=== PATIENT | female | born 1995 | race Two or more races ===

== ENCOUNTER → 2020-08-25 09:25 | Outpatient (BNVA) | payer OTHER, SELFPAY | PROVIDERS: Visit Provider Advanced Practice Midwife | DX: N92.6 Irregular menstruation, unspecified (principal); E66.9 Obesity, unspecified | CPT/HCPCS: 81025; 99212 ==

== ENCOUNTER 2020-09-03 10:31 | Outpatient (REF) | payer OTHER, SELFPAY ==
--- NOTE | ~2020-09-03 | US_ITS ---
EXAMINATION: US OBSTETRICAL ULTRASOUND, LESS THAN 14 WEEKS US OBSTETRICAL ULTRASOUND, TRANSVAGINAL CLINICAL INFORMATION: Unknown LMP. Irregular menses. First trimester dating. COMPARISON: None. LMP: Unknown. Gestational age by maternal dates is 9 weeks and 2 days. Estimated date of delivery by maternal dates is 04/06/2021. TECHNIQUE: Routine tristan-scale imaging of the abdomen with attention to was performed. FINDINGS: There is an intrauterine gestational sac. No definite visualization of yolk sac, pole or cardiac activity. MATERNAL ADNEXA: The right maternal ovary measures 2.9 x 2.3 x 2.7 cm. Unremarkable. The left maternal ovary measures 2.2 x 0.9 x 2.3 cm. Unremarkable. There is no significant maternal adnexal mass. No maternal pelvic ascites. US/US OB <= 14 weeks fetus IMPRESSION: Intrauterine gestational sac visualized. However, no pole, heart activity or yolk sac seen. Both ovaries are unremarkable. Recommend continued followup with serial hCG and ultrasound in 1 week.
--- NOTE | ~2020-09-03 | US_ITS ---
EXAMINATION: US OBSTETRICAL ULTRASOUND, LESS THAN 14 WEEKS US OBSTETRICAL ULTRASOUND, TRANSVAGINAL CLINICAL INFORMATION: Unknown LMP. Irregular menses. First trimester dating. COMPARISON: None. LMP: Unknown. Gestational age by maternal dates is 9 weeks and 2 days. Estimated date of delivery by maternal dates is 04/06/2021. TECHNIQUE: Routine tristan-scale imaging of the abdomen with attention to was performed. FINDINGS: There is an intrauterine gestational sac. No definite visualization of yolk sac, pole or cardiac activity. MATERNAL ADNEXA: The right maternal ovary measures 2.9 x 2.3 x 2.7 cm. Unremarkable. The left maternal ovary measures 2.2 x 0.9 x 2.3 cm. Unremarkable. There is no significant maternal adnexal mass. No maternal pelvic ascites. US/US OB transvaginal IMPRESSION: Intrauterine gestational sac visualized. However, no pole, heart activity or yolk sac seen. Both ovaries are unremarkable. Recommend continued followup with serial hCG and ultrasound in 1 week.
== END 2020-09-03 10:32 | disposition home or self-care (01) ==
LOC: HO.US 10:31
PROVIDERS: Visit Provider Advanced Practice Midwife
DX: Z34.91 Encounter for supervision of normal pregnancy, unspecified, first trimester (principal)
CPT/HCPCS: 76801; 76817

== ENCOUNTER 2020-09-08 09:54 | Outpatient (REF) | payer OTHER, SELFPAY | END 2020-09-08 09:55 | disposition home or self-care (01) | LOC: HO.LAB 09:54 | PROVIDERS: Visit Provider Advanced Practice Midwife | DX: O20.0 Threatened abortion (principal) | CPT/HCPCS: 36415; 84702 ==

== ENCOUNTER 2020-09-10 10:29 | Outpatient (REF) | payer OTHER, SELFPAY ==
--- NOTE | ~2020-09-10 | US_ITS ---
EXAMINATION: OBSTETRICAL ULTRASOUND, FIRST TRIMESTER HISTORY: The 25-year-old at the 6.6 weeks Threatened AB LMP: 06/30/2020 COMPARISON: 09/03/2020 TECHNIQUE: Real time transabdominal imaging with color and M-mode Doppler. Transvaginal ultrasound was performed using an endovaginal probe. FINDINGS: A single intrauterine gestational sac is seen. There is no identifiable yolk sac or embryonic pole. The mean sac diameter corresponds to 7.4 weeks. No heart rate motion seen. Both maternal ovaries are seen and appear normal. No free fluid in the cul-de-sac. GESTATIONAL AGE: 1. GA from LMP: 6.6 wks 2. GA from AUA: 7.4 wks ESTIMATED DATE OF DELIVERY: 1. JOAQUÍN from LMP: 04/30/2021 2. JOAQUÍN from AUA: 04/25/2021 US/US OB <= 14 weeks fetus IMPRESSION: 1. An empty intrauterine gestational sac with sac diameter corresponds to 7.4 weeks of gestation. 2. No embryonic pole or yolk sac identified, consistent with missed AB. 3. Normal adnexa and no free fluid. Discussion: I reviewed the findings with the patient and informed her of the missed AB. I also discussed the various causes for first trimester miscarriages. Approximately 20% of all human conceptions are lost in the first trimester. This one event is not the alter her ability to conceive in carry the to term. I reviewed various options and management including expectant risks and benefits of each options. She is to schedule a follow-up the which are office. Thank you very much for this referral. Total time 30 minutes. The time spent was devoted to counseling the patient about the disease and diagnosis, coordinating care including reviewing her records, pertinent lab data and studies, as well as discussing diagnostic evaluation and workup, plan therapeutic interventions and future disposition of care. This includes any additional research needed to obtain further information in formulating the plan of care of this patient. This note was generated with a voice recognition program. Please excuse any errors which may have been overlooked during my review of this note. Sometimes these errors may affect the content or meaning of a given sentence.
[2020-09-10 15:09] LABS: Hematocrit 34.2 % (37-47); Hemoglobin 10.9 g/dl (12.0-16.0); Mean Corpuscular HGB Conc 31.9 g/dl (31.0-35.0); Mean Corpuscular Hemoglobin 27.7 pg (27.0-33.0); Mean Platelet Volume 9.8 fL (9.4-12.3); Platelet Count 301 X10*3/uL (160-400); Red Blood Count 3.93 X10*6/uL (4.20-5.50); Red Cell Distribution Width 14.6 % (11.0-16.0); White Blood Count 8.6 X10*3/uL (4.8-10.8)
== END 2020-09-10 10:30 | disposition home or self-care (01) ==
LOC: HO.US 10:29
PROVIDERS: Visit Provider Advanced Practice Midwife
DX: O20.0 Threatened abortion (principal)
CPT/HCPCS: 36415; 76801; 85027; 86850; 86900; 86901; 99212

== ENCOUNTER 2020-09-13 12:49 | Outpatient (REF) | payer OTHER, SELFPAY ==
[2020-09-13 15:02] LABS: Hematocrit 34.4 % (37-47); Hemoglobin 10.9 g/dl (12.0-16.0); Mean Corpuscular HGB Conc 31.7 g/dl (31.0-35.0); Mean Corpuscular Hemoglobin 27.4 pg (27.0-33.0); Mean Corpuscular Volume 86.4 fL (80-98); Mean Platelet Volume 9.6 fL (9.4-12.3); Platelet Count 295 X10*3/uL (160-400); Red Blood Count 3.98 X10*6/uL (4.20-5.50); Red Cell Distribution Width 14.6 % (11.0-16.0); White Blood Count 9.4 X10*3/uL (4.8-10.8)
[2020-09-13 16:08] LABS: CT PCR NOT DETECTED (Not Detect.); NG PCR NOT DETECTED (Not Detect.)
== END 2020-09-13 12:50 | disposition home or self-care (01) ==
LOC: HO.LAB 12:49
PROVIDERS: Visit Provider Obstetrics & Gynecology
DX: O02.1 Missed abortion (principal)
CPT/HCPCS: 36415; 84702; 85027; 87491; 87591; 99212

== ENCOUNTER 2020-09-27 13:43 | Outpatient (REF) | payer OTHER, SELFPAY ==
[2020-09-27 16:23] LABS: HCG Quantitative 68 mIU/mL
== END 2020-09-27 13:44 | disposition home or self-care (01) ==
LOC: HO.LAB 13:43
PROVIDERS: Visit Provider Obstetrics & Gynecology
DX: O02.1 Missed abortion (principal)
CPT/HCPCS: 36415; 84702

== ENCOUNTER 2020-10-12 12:22 | Outpatient (REF) | payer OTHER, SELFPAY ==
[2020-10-12 13:14] LABS: HCG Quantitative 7 mIU/mL
== END 2020-10-12 12:23 | disposition home or self-care (01) ==
LOC: HO.LAB 12:22
PROVIDERS: Visit Provider Obstetrics & Gynecology
DX: O02.1 Missed abortion (principal)
CPT/HCPCS: 36415; 84702

== ENCOUNTER → 2020-10-13 10:41 | Outpatient (BNVA) | payer OTHER, SELFPAY | PROVIDERS: Visit Provider Obstetrics & Gynecology ==

== ENCOUNTER 2020-11-11 15:31 | Outpatient (REF) | payer OTHER, SELFPAY ==
[2020-11-11 16:41] LABS: HCG Quantitative < 2 mIU/mL
== END 2020-11-11 15:32 | disposition home or self-care (01) ==
LOC: HO.LAB 15:31
PROVIDERS: Visit Provider Obstetrics & Gynecology
DX: O02.1 Missed abortion (principal)
CPT/HCPCS: 36415; 84702

== ENCOUNTER 2021-09-22 13:21 | Outpatient (REF) | payer OTHER, SELFPAY ==
[2021-09-22 14:10] LABS: Hematocrit 34.1 % (37.0-47.0); Hemoglobin 10.6 g/dl (12.0-16.0); Mean Corpuscular HGB Conc 31.1 g/dl (31.0-35.0); Mean Corpuscular Hemoglobin 25.6 pg (27.0-33.0); Mean Corpuscular Volume 82.4 fL (80.0-98.0); Mean Platelet Volume 9.2 fL (9.4-12.3); Platelet Count 347 X10*3/uL (160-400); Red Blood Count 4.14 X10*6/uL (4.20-5.50); White Blood Count 6.9 X10*3/uL (4.8-10.8)
[2021-09-22 14:40] LABS: HCG Quantitative 35 mIU/mL
[2021-09-23 14:01] LABS: CT PCR NOT DETECTED (Not Detect.); NG PCR NOT DETECTED (Not Detect.)
== END 2021-09-22 13:22 | disposition home or self-care (01) ==
LOC: HO.LAB 13:21
PROVIDERS: Visit Provider Obstetrics & Gynecology
DX: O20.9 Hemorrhage in early pregnancy, unspecified (principal)
CPT/HCPCS: 36415; 81025; 84702; 85027; 87491; 87591; 99212

== ENCOUNTER 2021-09-26 11:39 | Outpatient (REF) | payer OTHER, SELFPAY ==
[2021-09-26 13:01] LABS: HCG Quantitative 21 mIU/mL
== END 2021-09-26 11:40 | disposition home or self-care (01) ==
LOC: HO.LAB 11:39
PROVIDERS: Visit Provider Obstetrics & Gynecology
DX: O03.9 Complete or unspecified spontaneous abortion without complication (principal)
CPT/HCPCS: 36415; 84702; 99212

== ENCOUNTER 2021-10-10 15:50 | Outpatient (REF) | payer OTHER, SELFPAY ==
[2021-10-10 18:03] LABS: HCG Quantitative < 2 mIU/mL
== END 2021-10-10 15:51 | disposition home or self-care (01) ==
LOC: HO.LAB 15:50
PROVIDERS: Visit Provider Obstetrics & Gynecology
DX: O20.9 Hemorrhage in early pregnancy, unspecified (principal)
CPT/HCPCS: 36415; 84702

== ENCOUNTER → 2021-10-17 10:37 | Outpatient (BNVA) | payer OTHER, SELFPAY | PROVIDERS: Visit Provider Obstetrics & Gynecology | DX: Z32.02 Encounter for pregnancy test, result negative (principal); O03.9 Complete or unspecified spontaneous abortion without complication | CPT/HCPCS: 81025; 99212 ==

== ENCOUNTER 2021-12-27 10:52 | Outpatient (REF) | payer OTHER, SELFPAY ==
[2021-12-27 13:27] LABS: Thyroid Stimulating Hormone 1.37 uIU/mL (0.32-4.0)
== END 2021-12-27 10:53 | disposition home or self-care (01) ==
LOC: HO.LAB 10:52
PROVIDERS: Visit Provider Advanced Practice Midwife
DX: Z34.90 Encounter for supervision of normal pregnancy, unspecified, unspecified trimester (principal); Z32.02 Encounter for pregnancy test, result negative
CPT/HCPCS: 36415; 81025; 84443; 99212

== ENCOUNTER 2022-02-14 10:30 | Outpatient (REF) | payer OTHER, SELFPAY ==
[2022-02-15 21:28] LABS: Follicle Stimulating Hormone 6.4 mIU/mL; Prolactin 10.2 ng/mL
[2022-02-15 22:09] LABS: DHEA Sulfate 150 mcg/dL (14-349)
[2022-02-22 19:39] LABS: Testosterone, Free 6.4 pg/mL (0.1-6.4); Testosterone, Total 29 ng/dL (2-45)
== END 2022-02-14 10:31 | disposition home or self-care (01) ==
LOC: HO.LAB 10:30
PROVIDERS: Visit Provider Advanced Practice Midwife
DX: N92.6 Irregular menstruation, unspecified (principal)
CPT/HCPCS: 36415; 82627; 83001; 83498; 84146; 84402; 84403; 99212

== ENCOUNTER → 2022-02-21 15:38 | Outpatient (BNVA) | payer OTHER, SELFPAY | PROVIDERS: Visit Provider Advanced Practice Midwife | DX: Z71.2 Person consulting for explanation of examination or test findings (principal) | CPT/HCPCS: 99212 ==

== ENCOUNTER → 2022-03-16 08:27 | Outpatient (BNVA) | payer OTHER, SELFPAY | PROVIDERS: Visit Provider Advanced Practice Midwife | DX: Z13.89 Encounter for screening for other disorder (principal) ==

== ENCOUNTER 2022-11-30 13:40 | Outpatient (AMB) | payer OTHER, SELFPAY ==
[2022-11-30 13:48] VITALS: BP 128/70; BMI 42.0
--- NOTE | 2022-11-30 13:48 | MHC.OFFVIS ---
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 Today her history is somewhat challenging to elicit but she reports that her last menstrual period in August but then there was a time in October when she went to the beach and she got dehydrated and almost passed out and was brought to the hospital and she says she started bleeding soon after that and it has been going since she thinks maybe it is about 3 weeks. She does not remember the dates. 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 She did think at 1 point that the irregular bleeding she was having could have been a miscarriage but then she did not think any more of it she had a test done today during this visit and it was negative. She denies hirsute is Um or increased acne. She says she gained most of her weight after the 1 of the miscarriages could she was sad. She said that she has trying to lose weight now and started going to the gym in the last 3 days and she did lose weight 1 other time but she gained it all back. She does not have a primary care provider and she has not been to a doctor in a long time she used to go to [facility] for care. 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 [facility] Medical History Missed Threatened Obesity (BMI 35.0-39.9 without comorbidity) Surgical History Hx of cholecystectomy Social History Alcohol intake: never Patient Tobacco Use Status: Never used Tobacco Gender identity: Female Female Reproductive History Menstrual Age of Menarche: 13 Duration of menses: other (since 09/01/22 still have period) Date of last menstrual period: 09/01/22 control method: none Physical Exam Vital Signs: Last Vital Signs BP 128/70 11/30/22 13:48 BMI result Body Mass Index 42.0 Const Nutritional Appearance: obese morbidly obese Chest Chest palpation & inspection: normal inspection of the chest and normal palpation of entire chest wall Breast/axilla inspection: normal inspection of the breasts and normal inspection of the axillae Other: Very challenging exams secondary to adipose cervix pink smooth glimpse to very briefly as it was re treating in to patient's body while Pap being done. Speculum Exam - Vagina: normal appearance of the vagina and other Speculum Exam - Cervix: normal appearance of the cervix and Other cervical findings present (limited views) Bimanual exam- vagina & uterus: other (uterus difficult to assess 2' habitus) Bimanual Exam- Adnexa, other: Other (palpation of adnexae limited 2' habitus) Results AMB Test Urine AMB Test Urine Negative Last Edit by Tequila Valladares CMA on 11/30/22 14:02 Results Reviewed Results Reviewed: Laboratory Last Values [facility]st Clinic Negative 11/30/22 13:58 Assessment & Plan Assessment & Plan (1) Irregular menstrual cycle: Code(s): N92.6 - Irregular menstruation, unspecified (2) Abnormal uterine bleeding: Code(s): N93.9 - Abnormal uterine and vaginal bleeding, unspecified (3) Cervical cancer screening: Code(s): Z12.4 - Encounter for screening for malignant neoplasm of cervix (4) Encounter for gynecological examination with Papanicolaou smear of cervix: Code(s): Z01.419 - Encounter for gynecological examination (general) (routine) without abnormal findings (5) Obesity, morbid, BMI 40.0-49.9: Code(s): E66.01 - Morbid (severe) obesity due to excess calories (6) Screen for sexually transmitted diseases: Comment: Declines HIV hepatitis and syphilis screening. 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 Today her history is somewhat challenging to elicit but she reports that her last menstrual period in August but then there was a time in October when she went to the beach and she got dehydrated and almost passed out and was brought to the hospital and she says she started bleeding soon after that and it has been going since she thinks maybe it is about 3 weeks. She does not remember the dates. 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 She did think at 1 point that the irregular bleeding she was having could have been a miscarriage but then she did not think any more of it she had a test done today during this visit and it was negative. She denies hirsute is Um or increased acne. She says she gained most of her weight after the 1 of the miscarriages could she was sad. She said that she has trying to lose weight now and started going to the gym in the last 3 days and she did lose weight 1 other time but she gained it all back. She does not have a primary care provider and she has not been to a doctor in a long time she used to go to [facility] for care. 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 Discussed the possible it E of PCOS but the changes that occur her with extreme obesity and elevated hormonal levels and abnormal menses and the need to ascertain whether not she has a thickening of the lining of her uterus. Will order an ultrasound will have a follow-up visit and in addition will order some lab work she declines blood work for STI. At the very end of the visit she said she would be interested in control but I am ordering the ultrasound and labs 1st. If she does get what she perceives is a come very normal completely normal menses for her I would like her to call at the beginning of that period,. And we can talk about getting her on control if it that happens to be before her scheduled visit. Additionally I discussed weight loss and the importance of dealing with it and that even if she gets tested and is told that her blood sugars fine and she has no evidence of diabetes or hypercholesterol her other issues it is only a matter of time with extreme obesity that it may present. I gave her information about the weight loss program as well and urged her to continue in her efforts. Orders: Orders Pap Smear Today Z01.419 - Encounter for gynecological examination (general) (routine) without abnormal findings Bacterial Vaginosis Panel Today Z20.2 - Contact with and (suspected) exposure to infections with a predominantly sexual mode of transmission CT NG by PCR Today Z01.419 - Encounter for gynecological examination (general) (routine) without abnormal findings Thyroid Stimulating Hormone Today E66.01 - Morbid (severe) obesity due to excess calories, N92.6 - Irregular menstruation, unspecified, N93.9 - Abnormal uterine and vaginal bleeding, unspecified, Z11.3 - Encounter for screening for infections with a predominantly sexual mode of transmission AMB HCG Urine Test Today Z32.02 - Encounter for test, result negative Complete Blood Count no Diff Today E66.01 - Morbid (severe) obesity due to excess calories, N92.6 - Irregular menstruation, unspecified, N93.9 - Abnormal uterine and vaginal bleeding, unspecified, Z11.3 - Encounter for screening for infections with a predominantly sexual mode of transmission Glucose Random Today E66.01 - Morbid (severe) obesity due to excess calories, N92.6 - Irregular menstruation, unspecified, N93.9 - Abnormal uterine and vaginal bleeding, unspecified, Z11.3 - Encounter for screening for infections with a predominantly sexual mode of transmission Testosterone, Free/Total Today E66.01 - Morbid (severe) obesity due to excess calories, N92.6 - Irregular menstruation, unspecified, N93.9 - Abnormal uterine and vaginal bleeding, unspecified, Z11.3 - Encounter for screening for infections with a predominantly sexual mode of transmission Coding Level of Care Code New Pt Prev Care 18-39yr([id number] Diagnoses Irregular menstrual cycle N92.6 Abnormal uterine bleeding N93.9 Cervical cancer screening Z12.4 Encounter for gynecological examination with Papanicolaou smear of cervix Z01.419 Obesity, morbid, BMI 40.0-49.9 E66.01 Screen for sexually transmitted diseases Z11.3
== END 2022-11-30 14:51 | disposition home or self-care (01) ==
PROVIDERS: Visit Provider Advanced Practice Midwife
DX: Z01.419 Encounter for gynecological examination (general) (routine) without abnormal findings (principal); N92.6 Irregular menstruation, unspecified; N93.9 Abnormal uterine and vaginal bleeding, unspecified; E66.01 Morbid (severe) obesity due to excess calories; Z32.02 Encounter for pregnancy test, result negative
CPT/HCPCS: 99385

== ENCOUNTER 2022-11-30 13:40 | Outpatient (REF) | payer OTHER, SELFPAY | END 2022-11-30 13:41 | disposition home or self-care (01) | LOC: HO.LAB 13:40 | PROVIDERS: Visit Provider Advanced Practice Midwife | DX: Z01.419 Encounter for gynecological examination (general) (routine) without abnormal findings (principal); Z20.2 Contact with and (suspected) exposure to infections with a predominantly sexual mode of transmission; N92.6 Irregular menstruation, unspecified; N93.9 Abnormal uterine and vaginal bleeding, unspecified; E66.01 Morbid (severe) obesity due to excess calories | CPT/HCPCS: 0353U; 81025; 87480; 87510; 87660; 88142; 99385 ==

== ENCOUNTER 2023-01-09 14:58 | Outpatient (REF) | payer OTHER, SELFPAY ==
--- NOTE | ~2023-01-09 | US_ITS ---
EXAMINATION: US PELVIS CLINICAL INFORMATION: Irregular menses. COMPARISON: None available. TECHNIQUE: Ultrasound of the pelvis is performed using both transabdominal and transvaginal transducers along with Doppler. Transvaginal imaging is performed due to inadequate visualization transabdominally. FINDINGS: UTERUS: The uterus is anteverted and measures 9.0 x 3.8 x 4.1 cm. The double wall endometrial thickness is 11 mm. The uterus is smooth in contour and has normal myometrial echogenicity. No visible fibroid. Nabothian cyst is present in the cervix. ADNEXA: Both ovaries are visualized. There is normal color flow to the adnexa. There is no ovarian torsion. There is trace fluid in the cul-de-sac. Right ovary measures 2.8 x 2.0 x 2.1 cm for a volume of 6.2 mL. Left ovary measures 2.6 x 2.8 x 1.4 cm for a volume of 5.3 mL. US/US pelvic and transvaginal IMPRESSION: Negative study.
== END 2023-01-09 14:59 | disposition home or self-care (01) ==
LOC: HO.US 14:58
PROVIDERS: Visit Provider Advanced Practice Midwife
DX: E66.01 Morbid (severe) obesity due to excess calories (principal); N92.6 Irregular menstruation, unspecified
CPT/HCPCS: 76830; 76856

== ENCOUNTER 2023-01-23 13:00 | Outpatient (REF) | payer OTHER, SELFPAY ==
[2023-01-23 14:48] LABS: Hematocrit 34.3 % (37.0-47.0); Hemoglobin 10.3 g/dl (12.0-16.0); Mean Corpuscular Hemoglobin 24.2 pg (27.0-33.0); Mean Corpuscular Volume 80.7 fL (80.0-98.0); Mean Platelet Volume 9.2 fL (9.4-12.3); Platelet Count 333 X10*3/uL (160-400); Red Blood Count 4.25 X10*6/uL (4.20-5.50); Red Cell Distribution Width 14.7 % (11.0-16.0); White Blood Count 7.2 X10*3/uL (4.8-10.8)
[2023-01-23 15:18] LABS: Glucose Random 100 mg/dL (60-115)
[2023-01-23 15:40] LABS: Thyroid Stimulating Hormone 1.46 uIU/mL (0.32-4.0)
[2023-01-28 14:48] LABS: Testosterone, Free 3.5 pg/mL (0.1-6.4); Testosterone, Total 20 ng/dL (2-45)
== END 2023-01-23 13:01 | disposition home or self-care (01) ==
LOC: HO.LAB 13:00
PROVIDERS: Visit Provider Advanced Practice Midwife
DX: Z11.3 Encounter for screening for infections with a predominantly sexual mode of transmission (principal); E66.01 Morbid (severe) obesity due to excess calories; N92.6 Irregular menstruation, unspecified; N93.9 Abnormal uterine and vaginal bleeding, unspecified; R03.0 Elevated blood-pressure reading, without diagnosis of hypertension
CPT/HCPCS: 36415; 82947; 84402; 84403; 84443; 85027; 99212

== ENCOUNTER 2023-01-23 13:00 | Outpatient (AMB) | payer OTHER, SELFPAY ==
[2023-01-23 13:02] VITALS: BP 140/78; BMI 42.2
--- NOTE | 2023-01-23 13:02 | A.OFFVIS_ITS ---
Intake Vital Signs 01/23/23 13:02 Height 5 ft Weight 216 lb BMI 42.2 BP 140/78 H Intake Visit Reasons: Ultra sound follow up Intake Note: has been cramping and irregular menses Supervisor Baking Required: No Information Interpreted: non-clinical & clinical Nursing Informatics Analyst: Nursing Informatics Analyst Present (Aidyn) Allergies No Known Allergies Allergy (Verified 01/23/23 13:07) Medication List - Last Reconciled 01/23/23 by Anju Guallpa CNM No Known Home Meds Is last menstrual period known: Yes Last menstrual period: 12/02/22 Post menopausal: No HPI Ultra sound follow up HPI Details Patient is here for an ultrasound follow-up to review the ultrasound that was done because of her irregular periods she also had blood work ordered but she for got about that and did not get the blood work done we reviewed that today and she is going to go now. A random glucose was orders as well as testosterone levels and thyroid level and a CBC because she has been anemic at the previous check a year and half ago. She states she has always had irregular periods she has gained some weight she was trying to get but now she has been doing some reading and she is kind of thinking that maybe it would be good to go on control pills to help regulate her periods she has been doing some reading about this and thinks that it would be a good idea in addition myself and other providers have discussed this with her as well. We reviewed the ultrasound today which was a normal ultrasound in did not show any markers for PCOS. She cites her last menstrual period as December 02 to December 08 and the previous 1 as November 10 lasting 7 days she did not get a period at all in December she is getting cramping but no period. The longest she has ever gone without a period has been 2 months. 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 She thinks if she started control pills she would probably take them right before going into work at 23:00. Her blood pressure was slightly elevated today at 140/78. She has an intention of trying to lose weight and start going to the gym. She does not get migraines or migraines with auras she does not smoke cigarettes she did not remember but she had her gallbladder taken out 2 years ago. She has intention of trying to lose weight by cutting out sweets and it working out. She thinks control pills would help her and she still might be interested in having a baby in maybe the next year to but she is going to work on losing weight 1st which has been recommendation in previous visits. Discussed risks of control pills but will give her a trial of control pills and recheck her blood pressure in sees how she is doing with her intention to lose weight in 3 months which will be after [place]. Discussed that if she is able to lose weight and her blood pressure is normal and if she were to continue on that plan for a year so then when she went off the pills, there would not be any delay of returned to her baseline fertility. She is going to go get her blood work done now and merchandise pickup/receiving associate the pills and I recommend she start them within the 1st 3 heavy days of her next menses I reviewed how to take the pills and go from 1 pack to the other without skipping and how to place the dates sticker so that it that keeps her on track which is especially important with her being a shift stacker worker taking the med 11:00 o'clock at night. [facility] Medical History Missed Threatened Obesity (BMI 35.0-39.9 without comorbidity) Surgical History Hx of cholecystectomy Social History Alcohol intake: never Patient Tobacco Use Status: Never used Tobacco Gender identity: Female Female Reproductive History Menstrual Age of Menarche: 13 Date of last menstrual period: 12/02/22 control method: none Date of last pap smear: 12/01/22 (negative) Physical Exam Vital Signs: Last Vital Signs BP 140/78 H 01/23/23 13:02 BMI result Body Mass Index 42.2 Results Reviewed Results Reviewed: Patient: Ivelisse Chau MR#: [id number] : 1995 Acct:[id number] Age/Sex: 27 / F ADM Date: 01/09/23 Loc: HO.US Attending Dr: Anju Guallpa CNM Ordering Physician: Anju Guallpa CNM Date of Service: 01/09/23 Procedure(s): US pelvic and transvaginal Accession Number(s): [id number] cc: Anju Guallpa CNM~ EXAMINATION: US PELVIS CLINICAL INFORMATION: Irregular menses. COMPARISON: None available. TECHNIQUE: Ultrasound of the pelvis is performed using both transabdominal and transvaginal transducers along with Doppler. Transvaginal imaging is performed due to inadequate visualization transabdominally. FINDINGS: UTERUS: The uterus is anteverted and measures 9.0 x 3.8 x 4.1 cm. The double wall endometrial thickness is 11 mm. The uterus is smooth in contour and has normal myometrial echogenicity. No visible fibroid. Nabothian cyst is present in the cervix. ADNEXA: Both ovaries are visualized. There is normal color flow to the adnexa. There is no ovarian torsion. There is trace fluid in the cul-de-sac. Right ovary measures 2.8 x 2.0 x 2.1 cm for a volume of 6.2 mL. Left ovary measures 2.6 x 2.8 x 1.4 cm for a volume of 5.3 mL. US/US pelvic and transvaginal IMPRESSION: Negative study. Dictated By: Sriram Hebert MD Signed By: <Electronically signed by Sriram Hebert MD in OV> 01/11/23 1600 DD/ 1539 TD/TT: Agency Service Coordinator: SS Assessment & Plan Assessment & Plan (1) Obesity, morbid, BMI 40.0-49.9: Code(s): E66.01 - Morbid (severe) obesity due to excess calories (2) Cervical cancer screening: Comment: 11/30/2022 Pap is negative with coxa bacilli. Code(s): Z12.4 - Encounter for screening for malignant neoplasm of cervix (3) Irregular menstrual cycle: Code(s): N92.6 - Irregular menstruation, unspecified (4) BCP ( control pills) initiation: Comment: Teaching done to start beginning of next menses, blood pressure check and weight check in 3 months. Code(s): Z30.011 - Encounter for initial prescription of contraceptive pills (5) Borderline high blood pressure: Code(s): R03.0 - Elevated blood-pressure reading, without diagnosis of hypertension Plan Patient is here for an ultrasound follow-up to review the ultrasound that was done because of her irregular periods she also had blood work ordered but she for got about that and did not get the blood work done we reviewed that today and she is going to go now. A random glucose was orders as well as testosterone levels and thyroid level and a CBC because she has been anemic at the previous check a year and half ago. She states she has always had irregular periods she has gained some weight she was trying to get but now she has been doing some reading and she is kind of thinking that maybe it would be good to go on control pills to help regulate her periods she has been doing some reading about this and thinks that it would be a good idea in addition myself and other providers have discussed this with her as well. We reviewed the ultrasound today which was a normal ultrasound in did not show any markers for PCOS. She cites her last menstrual period as December 02 to December 08 and the previous 1 as November 10 lasting 7 days she did not get a period at all in December she is getting cramping but no period. The longest she has ever gone without a period has been 2 months. 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 She thinks if she started control pills she would probably take them right before going into work at 23:00. Her blood pressure was slightly elevated today at 140/78. She has an intention of trying to lose weight and start going to the gym. She does not get migraines or migraines with auras she does not smoke cigarettes she did not remember but she had her gallbladder taken out 2 years ago. She has intention of trying to lose weight by cutting out sweets and it working out. She thinks control pills would help her and she still might be interested in having a baby in maybe the next year to but she is going to work on losing weight 1st which has been recommendation in previous visits. Discussed risks of control pills but will give her a trial of control pills and recheck her blood pressure in sees how she is doing with her intention to lose weight in 3 months which will be after [place]. Discussed that if she is able to lose weight and her blood pressure is normal and if she were to continue on that plan for a year so then when she went off the pills, there would not be any delay of returned to her baseline fertility. 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 Medications: New desog-e.estradiol/e.estradiol 0.15-0.02 mgx21 /0.01 mg x 5 1 tab PO DAILY 84 tabs 1RF Coding Level of Care Code Est Pt Level 3 (39716) Diagnoses Obesity, morbid, BMI 40.0-49.9 E66.01 Cervical cancer screening Z12.4 Irregular menstrual cycle N92.6 BCP ( control pills) initiation Z30.011 Borderline high blood pressure R03.0
== END 2023-01-23 13:56 | disposition home or self-care (01) ==
LOC: HO.HWS 13:00
PROVIDERS: Visit Provider Advanced Practice Midwife
DX: E66.01 Morbid (severe) obesity due to excess calories (principal); Z68.41 Body mass index [BMI] 40.0-44.9, adult; N92.6 Irregular menstruation, unspecified; R03.0 Elevated blood-pressure reading, without diagnosis of hypertension
CPT/HCPCS: 99213

== ENCOUNTER 2023-05-03 15:03 | Outpatient (AMB) | payer OTHER, SELFPAY ==
[2023-05-03 15:04] VITALS: BP 122/70; BMI 43.7
--- NOTE | 2023-05-03 15:04 | MHC.OFFVIS ---
Intake Vital Signs 05/03/23 15:04 Height 5 ft Weight 224 lb BMI 43.7 BP 122/70 Intake Visit Reasons: 3 Month follow up Herb Digger Required: No Information Interpreted: clinical only Quality Improvement Specialist: Quality Improvement Specialist Present Allergies No Known Allergies Allergy (Verified 05/03/23 15:08) Medication List - Last Reconciled 05/03/23 by Anju Guallpa CNM desog-e.estradiol/e.estradiol 0.15-0.02 mgx21 /0.01 mg x 5 1 tab PO DAILY ferrous sulfate 324 mg PO DAILY Is last menstrual period known: No (BCP) Do you need a note to return to daycare/school/sports/work: No HPI 3 Month follow up HPI Details Patient is here is a 3 month pill check. Her blood pressure is better today. She likes the pills because it makes her periods less painful and less heavy and she likes that they have been nice and regular to she says she has a goal of losing weight because she wants to have a baby but she has actually gained weight. 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 And then she also works another job at [employer] had she says it is hard to resist the sweets. We did discuss nutrition on several levels and I did offer her a weight management referral and she says she does not really have time for that now because of the 2 jobs. She is going to re double her efforts herself also discussed ways to sneak in energy use with exercise. She is also taking the iron and says it is making her feel better. I am refilling her iron for her and I am refilling the control pills. I urged her to really try to re double her efforts to lose weight so that she can then turned her attention towards getting she I am requesting that she check at the front desk team member about a primary care provider listing so that she can get in to see somebody I also reviewed past labs that she had done at the last visit she most of her labs done checking her irregular menses were within normal limits her fasting blood sugar was 100. Her TSH was normal. We will see her in 1 year for her annual exam. [facility] Medical History Missed Threatened Obesity (BMI 35.0-39.9 without comorbidity) Surgical History Hx of cholecystectomy Social History Alcohol intake: never Patient Tobacco Use Status: Never used Tobacco Gender identity: Female Female Reproductive History Menstrual Age of Menarche: 13 Duration of menses: 3-5 days control method: pills Total pregnancies: 3 Full term: 0 Date of last pap smear: 12/01/22 (negative) History of abnormal pap smear: No Physical Exam Vital Signs: Last Vital Signs BP 122/70 05/03/23 15:04 BMI result Body Mass Index 43.7 Assessment & Plan Assessment & Plan (1) Anemia: Code(s): D64.9 - Anemia, unspecified (2) Borderline high blood pressure: Comment: Normotensive today 05/03/2023. to continue on OCPs. Code(s): R03.0 - Elevated blood-pressure reading, without diagnosis of hypertension (3) BCP ( control pills) initiation: Comment: Teaching done to start beginning of next menses, blood pressure check and weight check in 3 months. Code(s): Z30.011 - Encounter for initial prescription of contraceptive pills (4) Obesity, morbid, BMI 40.0-49.9: Comment: Enco.uraged to re double efforts to lose weight declined referral today as working 2 jobs and has no time nutrition discussed Code(s): E66.01 - Morbid (severe) obesity due to excess calories (5) Cervical cancer screening: Comment: 11/30/2022 Pap is negative with coxa bacilli. Code(s): Z12.4 - Encounter for screening for malignant neoplasm of cervix (6) Irregular menstrual cycle: Code(s): N92.6 - Irregular menstruation, unspecified Plan Patient is here is a 3 month pill check. Her blood pressure is better today. She likes the pills because it makes her periods less painful and less heavy and she likes that they have been nice and regular to she says she has a goal of losing weight because she wants to have a baby but she has actually gained weight. 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 And then she also works another job at [employer] had she says it is hard to resist the sweets. We did discuss nutrition on several levels and I did offer her a weight management referral and she says she does not really have time for that now because of the 2 jobs. She is going to re double her efforts herself also discussed ways to sneak in energy use with exercise. She is also taking the iron and says it is making her feel better. I am refilling her iron for her and I am refilling the control pills. I urged her to really try to re double her efforts to lose weight so that she can then turned her attention towards getting she I am requesting that she check at the front desk team member about a primary care provider listing so that she can get in to see somebody I also reviewed past labs that she had done at the last visit she most of her labs done checking her irregular menses were within normal limits her fasting blood sugar was 100. Her TSH was normal. We will see her in 1 year for her annual exam. Medications: Refilled ferrous sulfate take once a day w vit c rich juice and diet to prevent constipation 324 mg PO DAILY 90 tabs 2RF desog-e.estradiol/e.estradiol 0.15-0.02 mgx21 /0.01 mg x 5 1 tab PO DAILY 84 tabs 3RF Coding Level of Care Code Est Pt Level 3 (15338) Diagnoses Anemia D64.9 Borderline high blood pressure R03.0 BCP ( control pills) initiation Z30.011 Obesity, morbid, BMI 40.0-49.9 E66.01 Cervical cancer screening Z12.4 Irregular menstrual cycle N92.6
== END 2023-05-03 15:31 | disposition home or self-care (01) ==
LOC: HO.HWSM 15:03
PROVIDERS: Visit Provider Advanced Practice Midwife
DX: D64.9 Anemia, unspecified (principal); R03.0 Elevated blood-pressure reading, without diagnosis of hypertension; Z30.011 Encounter for initial prescription of contraceptive pills; E66.01 Morbid (severe) obesity due to excess calories; Z12.4 Encounter for screening for malignant neoplasm of cervix; N92.6 Irregular menstruation, unspecified
CPT/HCPCS: 99213

== ENCOUNTER → 2023-05-03 15:03 | Outpatient (BNVA) | payer OTHER, SELFPAY | PROVIDERS: Visit Provider Advanced Practice Midwife | DX: Z30.011 Encounter for initial prescription of contraceptive pills (principal); Z12.4 Encounter for screening for malignant neoplasm of cervix; R03.0 Elevated blood-pressure reading, without diagnosis of hypertension; D64.9 Anemia, unspecified; N92.6 Irregular menstruation, unspecified; E66.01 Morbid (severe) obesity due to excess calories; Z68.41 Body mass index [BMI] 40.0-44.9, adult | CPT/HCPCS: 99212 ==

== ENCOUNTER 2024-03-18 | Outpatient (REF) | payer OTHER, SELFPAY ==
--- OUTSIDE RECORDS SUMMARY | 2024-03-18 17:59 | XMS_ITS | Clinical Summary ---
Author Organization [address] Address [address] [place] [address] Phone Care Team Providers Care Husker Operator Name Role Phone Unavailable Primary Care Provider Unavailabl e Allergies No known active allergies Medications No known medications Social History Tobacco Use Types Packs/Day Years Used Date Smoking Tobacco: Never Assessed Comments Unknown Sex and Gender Information Value Date Recorded Sex Assigned at Not on file Legal Sex Female 1:31 PM EDT Gender Identity Not on file Sexual Orientation Not on file Last Filed Vital Signs Vital Sign Reading Time Taken Comments Blood Pressure 96/55 10/21/2022 6:15 PM EDT Pulse 89 10/21/2022 6:15 PM EDT Temperature 36.9 ??C (98.5 ??F) 10/21/2022 4:21 PM ED T Respiratory Rate 16 10/21/2022 6:15 PM EDT Oxygen Saturation 94% 10/21/2022 6:15 PM EDT Inhaled Oxygen Concentration - - Weight 100.1 kg (220 lb 10.9 oz) 10/21/2022 1:36 PM EDT Height 154.9 cm (5' 1 ) 10/21/2022 1:36 PM EDT Body Mass Index 41.7 10/21/2022 1:36 PM EDT Plan of Treatment Health Maintenance Due Date Last Done Comments HIV screening 01/14/2009 Hepatitis C screening 01/14/2014 Tetanus adult (Td q 10,TDAP once) 2016 09/18/2000, 05/29/1997, 1996, Additional history exists Cervical cancer screening 01/14/2017 Influenza vaccine 09/27/2023 Covid-19 vaccine series (2023- season) 2023 RSV Discussion (1 - 1-dose 75+ series) 01/14/2071 Meningococcal Vaccine Aged Out 08/07/2008 No adia dorian eligible based on patient's age to complete this topic Pneumococcal Vaccine Aged Out No long er eligible based on patient's age to complete this topic Insurance COMMERCIAL GENERIC COMMERCIAL GENERIC COMMERCIAL GENERIC
--- OUTSIDE RECORDS SUMMARY | 2024-03-18 17:59 | XMS_ITS | Clinical Summary ---
Author Organization [facility] it Address [address] [place] [address] Care Team Providers Care Fence Post Driver Name Role Phone Unavailable Primary Care Provider Unavailabl e Surgical History Surgery Date Site/Laterality Comments CHOLECYSTECTOMY 03/21/2021 PROCEDURE: [place] LAPAROSCOPY SURG CHOLECYSTECTOMY; COMMENT: Dr. Kenney Caicedo, [facility] Family History Medical History Relation Name Comments Diabetes Father Heart failure Father No Known Problems Mother Relation Name Status Comments Father Alive Mother Alive Social History Tobacco Use Types Packs/Day Years Used Date Smoking Tobacco: Never Alcohol Use Standard Drinks/Week Comments Not Currently 0 (1 standard drink = 0.6 oz pur e alcohol) Sex and Gender Information Value Date Recorded Sex Assigned at Not on file Gender Identity Not on file Sexual Orientation Not on file Obstetrics History Plan of Treatment Health Maintenance Due Date Last Done Comments DTaP,Tdap,and Td Vaccines (1 - Tdap) 01/14/2015 Hepatitis B Vaccines (1 of 3 - 19+ 3-dose series) 01/14/2015 Cervical Cancer Screening: P ap Smear 01/14/2017 Depression Screening 01/29/2022 HIV Screening 01/29/2022 Hepatitis C Screening 01/29/2022 Social Influencers of Health Screening 01/29/2022 COVID-19 Vaccine ( - 2023-2 5 season) 2023 Influenza Vaccine (#1) 2023 HIB Vaccines Aged Out No longer eligi ble based on patient's age to complete this topic HPV Vaccines Aged Out No longer eligi ble based on patient's age to complete this topic Hepatitis A Vaccines Aged Out No long er eligible based on patient's age to complete this topic IPV Vaccines Aged Out No longer eligi ble based on patient's age to complete this topic MMR Vaccines Aged Out No longer eligi ble based on patient's age to complete this topic Meningococcal ACWY Vaccine Aged Out N o longer eligible based on patient's age to complete this topic Pneumococcal Vaccine: Pediat rics (0 to 5 Years) and At-Risk Patients (6 to 64 Years) Aged Out No longer eligible b ased on patient's age to complete this topic RSV Immunization Patients Un thao 20 months Aged Out No longer eligible b ased on patient's age to complete this topic Varicella Vaccines Aged Out No longer eligible based on patient's age to complete this topic
[2024-03-19 03:19] LABS: CT PCR NOT DETECTED (Not Detect.); NG PCR NOT DETECTED (Not Detect.)
[2024-03-19 13:47] LABS: Bacterial Vaginosis PCR POSITIVE (Negative); Candida Group PCR NOT DETECTED (Not Detect); Candida glab krusei PCR NOT DETECTED (Not Detect); Trichomonas vaginalis PCR NOT DETECTED (Not Detect)
== END 2024-03-18 00:01 | disposition home or self-care (01) ==
LOC: HO.LNP
PROVIDERS: Visit Provider Advanced Practice Midwife
DX: N89.8 Other specified noninflammatory disorders of vagina (principal); Z20.2 Contact with and (suspected) exposure to infections with a predominantly sexual mode of transmission
CPT/HCPCS: 81515; 87491; 87591

== ENCOUNTER 2024-03-18 13:48 | Outpatient (AMB) | payer OTHER, SELFPAY ==
--- NOTE | 2024-03-18 13:53 | MHC.OFFVIS ---
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 She was on control pills to help regulate her. Then she and I had discussions about losing weight and trying to get healthier before considering but she stopped the control pills in an attempt to get a few months ago. She has not gotten though she has missed a period and she would be very happy if she would be . She has gained significant amount of weight since the last time she was seen. She says that she had the start of a visit with her primary care provider who she was just meeting but did not like the person and so she left.. She says she is on a waiting list for 4-7 months for a primary care provider at [facility]. She says she was told her insurance will cover [facility] or [facility]. She did not bring the subject up but I asked her how she felt about her weight and what she was doing about it and she said she was considering the surgery because her friend had it in lost a lot of weight and they talk a lot. She had missed a period in January and she spotted on March 15 so she is interested in getting a test today at this visit [facility] Medical History Missed Threatened Obesity (BMI 35.0-39.9 without comorbidity) Surgical History Hx of cholecystectomy Social History Alcohol intake: never Patient Tobacco Use Status: Never used Tobacco Gender identity: Female Female Reproductive History Menstrual Age of Menarche: 13 Duration of menses: <3 days Date of last menstrual period: 03/15/24 (3 days only) control method: none Total pregnancies: 3 Date of last pap smear: 11/30/22 (negative) History of abnormal pap smear: No Physical Exam Vital Signs: Last Vital Signs BP 120/70 03/18/24 14:01 BMI result Body Mass Index 45.7 Const Other: Obesity noted throughout. General: healthy appearing, comfortable, no acute distress, well developed and alert Nutritional Appearance: obese Orientation/consciousness: patient oriented x3 Limitations: no limitations HEENT Head: Yes normocephalic Neck Neck: Yes normal visual inspection Chest Chest palpation & inspection: normal inspection of the chest Breast/axilla inspection: normal inspection of the breasts and normal inspection of the axillae Breast/axilla palpation: normal palpation of the breasts and normal palpation of the axillae Resp Effort & Inspection: normal respiratory effort GI Inspection: Yes normal to inspection, No Abdominal wall edema and No distended Palpation (GI): Soft to palpation and nontender Other: External vulva within normal limits vagina is pink and moist there is a whitish thin slightly bubbly discharge cervix is nulliparous pink smooth mobile nontender. Uterus difficult to palpate secondary to adipose but nontender no organomegaly appreciated. Adnexa nontender good muscle tone with Kegel. General: Yes bladder normal to palpation External Female Exam: normal external appearance and normal appearance of the urethra Speculum Exam - Vagina: normal appearance of the vagina, normal palpation and normal vaginal discharge Speculum Exam - Cervix: normal appearance of the cervix, normal palpation and nontender Bimanual exam- vagina & uterus: normal bimanual exam, normal palpation, uterine size normal, bladder normal to palpation, consistency normal, normal palpation, uterine mobility normal, uterine shape normal, No Cervical tenderness present, non-tender and no cervical motion tenderness Bimanual Exam- Adnexa, other: normal adnexae, no masses, normal and No adnexal tenderness Neuro General: patient oriented x3 Results AMB Test Urine AMB Test Urine Negative Last Edit by Tequila Valladares CMA on 03/18/24 15:06 Results Reviewed Results Reviewed: Laboratory Last Values Tst Clinic Negative 03/18/24 15:05 deidra: Ivelisse Chau Age/Sex: 27/F Attending: Anju Guallpa CNM : 1995 Submitted by: SaloniAnju [facility] Copies to: MR #: [id number] Status: DEP REF Collected: 11/30/22 Location: .LAB Received: 12/01/22 Interpretation Satisfactory for evaluation. Coccobacilli consistent with shift in vaginal gris. Mild inflammation. Negative for intraepithelial lesion or malignancy. Clinical Information LMP: 09/01/22 Previous PAP test: Unknown date/findings Material Received ThinPrep-Cervical Electronically Signed By: MIRANDA Ordoñez (ASCP) 12/05/22 1341 The Pap Test is a screening procedure with the inherent possibility of both false negative and false positive results. Results should be interpreted in the context of historic and current clinical findings. Reliability of the Pap Test is enhanced by performing the test on a regular repetitive basis. Patient: Ivelisse Chau Age/Sex: 27/F MR#: [id number] Page 1 of 1 Assessment & Plan Assessment & Plan (1) Irregular menstrual cycle: Code(s): N92.6 - Irregular menstruation, unspecified Category: Medical (2) Cervical cancer screening: Comment: 11/30/2022 Pap is negative with coxa bacilli. Code(s): Z12.4 - Encounter for screening for malignant neoplasm of cervix Category: Medical (3) Obesity, morbid, BMI 40.0-49.9: Comment: Enco.uraged to re double efforts to lose weight declined referral today as working 2 jobs and has no time nutrition discussed; 03/18/2024-patient has gained even more weight she stopped the control pills in an attempt to get . She started with a primary care provider but did not like them and is on a waiting list for another. Meanwhile she has made up her mind that she would be interested bariatric surgery patient needs primary care and assessment for metabolic disorders. Will place referral to bariatric surgery while patient re doubles her efforts to get into primary care [facility]. I strongly recommend delaying any consideration of till after weight loss and better health is achieved, Code(s): E66.01 - Morbid (severe) obesity due to excess calories Category: Medical (4) Women's annual routine gynecological examination: Code(s): Z01.419 - Encounter for gynecological examination (general) (routine) without abnormal findings Category: Medical (5) control counseling: Comment: I strongly recommend against until she loses weight.... 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 She was on control pills to help regulate her. Then she and I had discussions about losing weight and trying to get healthier before considering but she stopped the control pills in an attempt to get a few months ago. She has not gotten though she has missed a period and she would be very happy if she would be . She has gained significant amount of weight since the last time she was seen. She says that she had the start of a visit with her primary care provider who she was just meeting but did not like the person and so she left.. She says she is on a waiting list for 4-7 months for a primary care provider at [facility] [place]. She says she was told her insurance will cover [facility] or [facility]. She did not bring the subject up but I asked her how she felt about her weight and what she was doing about it and she said she was considering the surgery because her friend had it in lost a lot of weight and they talk a lot. She had missed a period in January and she spotted on March 15 so she is interested in getting a test today at this visit We will do a test now.--it is negative, I have frankly shared that it would be best for her not to get until she had achieves weight loss for her own health; that she would be a very high-risk at this weight. I also reviewed that because of that she would need to start care immediately at a [facility] practice.. I offered to place a referral for bariatric weight loss but I also asked her to seek a primary care provider as an urgent task. I reviewed the concerns for many problems with health that only accrue with time and weight including diabetes. 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 Additionally discussed that the journey to lose weight takes commitment and effort and encouraged her to maintain her mutual friendships/support with her friend who is further on the weight loss journey as that can be useful to them both. She is not interested in resuming the control pills at this time as she is still is hoping for which I did discourage her from pursuing. She is also not interested in any blood work for STIs as she sees no need at this time. I did also suggest multivitamins(folic acid) if she is going to pursue . rtc 1 yr weight management referral pt needs a PCC, I asked her to call often to maintain place/ move up on waiting list. Orders: Orders CT NG by PCR Today N89.8 - Other specified noninflammatory disorders of vagina, Z20.2 - Contact with and (suspected) exposure to infections with a predominantly sexual mode of transmission Bacterial Vaginosis Panel Today N89.8 - Other specified noninflammatory disorders of vagina AMB HCG Urine Test Today Z32.02 - Encounter for test, result negative Referrals Medical Weight Management Referral E66.01 - Morbid (severe) obesity due to excess calories, N92.6 - Irregular menstruation, unspecified, Z01.419 - Encounter for gynecological examination (general) (routine) without abnormal findings, Z12.4 - Encounter for screening for malignant neoplasm of cervix, Z30.09 - Encounter for other general counseling and advice on contraception Coding Level of Care Code Est Pt Prev Care 18-39y([id number]) Diagnoses Irregular menstrual cycle N92.6 Cervical cancer screening Z12.4 Obesity, morbid, BMI 40.0-49.9 E66.01 Women's annual routine gynecological examination Z01.419 control counseling Z30.09
[2024-03-18 14:01] VITALS: BP 120/70; BMI 45.7
== END 2024-03-18 15:26 | disposition home or self-care (01) ==
LOC: HO.HWSM 13:48
PROVIDERS: Visit Provider Advanced Practice Midwife
DX: Z01.419 Encounter for gynecological examination (general) (routine) without abnormal findings (principal); N92.6 Irregular menstruation, unspecified; E66.01 Morbid (severe) obesity due to excess calories; Z32.02 Encounter for pregnancy test, result negative
CPT/HCPCS: 99395; 99459

== ENCOUNTER 2024-03-18 13:48 | Outpatient (REF) | payer OTHER, SELFPAY | END 2024-03-18 13:49 | disposition home or self-care (01) | LOC: HO.LAB 13:48 | PROVIDERS: Visit Provider Advanced Practice Midwife | DX: Z01.419 Encounter for gynecological examination (general) (routine) without abnormal findings (principal); N92.6 Irregular menstruation, unspecified; E66.01 Morbid (severe) obesity due to excess calories; Z68.42 Body mass index [BMI] 45.0-49.9, adult | CPT/HCPCS: 81025; 99395; 99459 ==

== ENCOUNTER → 2024-03-21 07:53 | Outpatient (BNVA) | payer OTHER, SELFPAY | PROVIDERS: Visit Provider Physician Assistant Surgical ==

== ENCOUNTER 2024-03-24 07:54 | Outpatient (AMB) | payer OTHER, SELFPAY ==
--- OUTSIDE RECORDS SUMMARY | 2024-03-24 07:57 | XMS_ITS | Clinical Summary ---
Author Organization [address] Address [address] [place] [address] Phone Care Team Providers Care Utility Inspector Name Role Phone Unavailable Primary Care Provider [...]
--- OUTSIDE RECORDS SUMMARY | 2024-03-24 07:57 | XMS_ITS | Clinical Summary ---
Author Organization [facility] it Address [address] [place] [address] Care Team Providers Care Implementation Project Coordinator Name Role Phone Unavailable Primary Care Provider Unavailabl e Surgical History Surgery Date Site/Laterality Comments CHOLECYSTECTOMY 03/21/2021 PROCEDURE: [place] LAPAROSCOPY SURG CHOLECYSTECTOMY; COMMENT: Dr. Kenney Caicedo, [facility] Family History Medical History Relation Name Comments [...]
--- OUTSIDE RECORDS SUMMARY | 2024-03-24 07:57 | XMS_ITS ---
Author Name [facility] Organization Unknown Results Test Name/Text Value Interpretation Date Range Source BKR REFLEX URINE CULTURE See Comment Normal [id number] [facility] BKR BACTERIA, UA Rare Normal [id number] - [facility] BKR WBC/HPF INSTRUMENT 3/HPF Normal [id number] 0 - 5 [facility] BKR URINE SQUAMOUS EPITHELIAL CELLS, UA (NUMERIC) 3/HPF Normal [id number] 0 - 5 [facility] Hgb Ur Ql Strip.auto 3+ Abnormal [id number] - [facility] Prot Ur Strip.auto-mCnc Trace Normal [id number] - [facility] Color Ur Auto Yellow Normal [id number] - [facility] Glucose Ur Strip.auto-mCnc Negative Normal [id number] - [facility] Bilirub Ur Ql Strip.auto Negative Normal [id number] - [facility] Nitrite Ur Ql Strip.auto Negative Normal [id number] - [facility] Ketones Ur Strip.auto-mCnc Negative Normal [id number] - [facility] Clarity Ur Refract.auto Cloudy Abnormal [id number] - [facility] WBC # Ur Strip Negative Normal [id number] - [facility] Urobilinogen Ur Strip-mCnc 2mg/dL Normal [id number] - [facility] pH Ur Strip.auto 5.5 Normal [id number] 5.5 - 7.5 [facility] Sp Gr Ur Refract.auto 1.01 Normal [id number] 1.005 - 1.03 [facility] Lactate SerPl-sCnc 2.8mmol/L Above high normal 0.4 - 2 [facility] Creat SerPl-mCnc 0.95mg/dL Normal [id number] 0.55 - 1.0 2 [facility] Albumin SerPl BCG-mCnc 3.5g/dL Normal [id number] 3.4 - 5 [facility] eGFRcr SerPlBld CKD-EPI 2020 60mL/min/1.73m2 Normal [id number] - [facility] ALT SerPl w/o P-5'-P-cCnc 47U/L Normal [id number] 13 - 56 [facility] Bilirub SerPl-mCnc 0.4mg/dL Normal [id number] - 1 [facility] Calcium SerPl-mCnc 9.2mg/dL Normal [id number] 8.5 - 10 .1 [facility] BUN SerPl-mCnc 10mg/dL Normal [id number] 7 - 18 [facility] ALP SerPl-cCnc 72U/L Normal 45 - 117 [facility] HCO3 SerPl-sCnc 26mmol/L Normal 21 - 32 [facility] Chloride SerPl-sCnc 107mmol/L Normal [id number] 98 - 10 7 [facility] AST SerPl w P-5'-P-cCnc 22U/L Normal 15 - 37 [facility] Globulin Plas-mCnc 3.8g/dL Normal [id number] 2.5 - 5 [facility] Prot SerPl-mCnc 7.3g/dL Normal 6.4 - 8.2 [facility] Sodium SerPl-sCnc 140mmol/L Normal [id number] 136 - 145 [facility] nRBC/100 WBC Bld Auto-Rto 0% Normal [id number] 0 - 1 [facility] Eosinophil # Bld Auto 0.5f0416/uL Normal [id number] 0 - 1 [facility] MCHC RBC Auto-mCnc 30.6g/dL Below low normal [id number] 3 1 - 36 [facility] Monocytes/leuk NFr Bld Auto 5.8% Normal [id number] 4 - 12 [facility] WBC # Bld Auto 13.3v0377/uL Above high normal [id number] 4 - 11 [facility] Hct VFr Bld Auto 43.2% Normal [id number] 35 - 45 [facility] RDW RBC Auto-Rto 14.6% Normal [id number] 11 - 15 [facility] PMV Bld Auto 8.9fL Normal [id number] 8 - 12 [facility] Eosinophil/leuk NFr Bld Auto 0.7% Normal [id number] 0 - 5 [facility] MCH RBC Qn Auto 25pg Below low normal [id number] 27 - 33 [facility] Basophils/leuk NFr Bld Auto 0.5% Normal [id number] 0 - 1.4 [facility] Lymphocytes # Bld Auto 2.2w4229/uL Normal [id number] 0.6 - 3.7 [facility] RBC # Bld Auto 5.29M/uL Normal [id number] 4 - 6 [facility] Neutrophils/leuk NFr Bld Auto 77.3% Above high normal [id number] 39 - 72 [facility] Imm Granulocytes # Bld Auto 0.63t2147/uL Normal [id number] 0 - 0.3 [facility] BKR WAM ABSOLUTE NEUTROPHIL COUNT. 10.29r0950/uL Above high normal [id number] 2 - 7.6 [facility] Platelet # Bld Auto 401l0749/uL Above high normal [id number] 150 - 420 [facility] MCV RBC Auto 81.7fL Normal [id number] 80 - 100 [facility] Lymphocytes/leuk NFr Bld Auto 15.1% Below low normal [id number] 17 - 50 [facility] Imm Granulocytes/leuk NFr Bld Auto 0.6% Normal [id number] 0 - 1 [facility] Hgb Bld-mCnc 13.2g/dL Normal [id number] 11.7 - 15.5 [facility]
--- NOTE | 2024-03-24 09:57 | A.OFFVIS_ITS ---
VS Expanded 03/24/24 10:06 Height 5 ft Weight 232 lb 8 oz BMI 45.4 Body Fat % 43.3 Body Fat Mass 100.8 Fat Free Mass 131.8 Visceral Fat Rating 12 Body Water % 40.8 Body Water Mass 94.8 Basal Metabolic Rate/Score 1,876 Intake Visit Reasons: [employer] BMI 45.4 Allergies No Known Allergies Allergy (Verified 03/24/24 09:58) Medication List - Last Reconciled 03/24/24 by Shad Dior MD ferrous sulfate 324 mg PO DAILY [ vitamin PO] HPI HPI [employer] BMI 45.4: Details: Start time: 9.50am, End time: 10.35am ?I spent 40 minutes speaking with the patient on the phone plus an additional 5 minutes reviewing and updating records for a total of 45 minutes HPI Comments Details: Previous weight loss efforts: exercise Weekdays: sleeps: 8am-2pm and 7pm-8pm, Weekends: sleeps: 3am to 12pm Breakfast: skips Lunch: skips Dinner: 4pm (chicken, fried food and bread) Snacks: 12am (cereal) Exercise: has a home treadmill Fluids: Coffee (1-2 cups/day with milk, cream, sugar), tea: none, soda: none, juice: pineapple/orange (2 cups/day x3/wk), ETOH: none PFSH Medical History (Updated 03/24/24 @ 09:59 by Shad Dior MD) GERD (gastroesophageal reflux disease) Morbid obesity Missed Threatened Obesity (BMI 35.0-39.9 without comorbidity) Surgical History (Reviewed 03/18/24 @ 14:03 by Tequila Valladares [facility]) Hx of cholecystectomy Family History (Updated 03/21/24 @ 09:25 by Yamileth Collier CMA) Mother No problems noted. Father No problems noted. Social History (Updated 03/21/24 @ 09:30 by Yamileth Collier CMA) Alcohol intake: never Patient Tobacco Use Status: Never used Tobacco Gender identity: Female Female Reproductive History Menstrual Age of Menarche: 13 Telehealth Telehealth Telehealth Platform: Telephone Location of provider rendering services: practice address Location of patient: address on file Patient Identification confirmed using: Name, : Yes Telehealth method: voice only Patient verbally consented to treatment: Yes Patient verbally consented to billing insurance company: Yes Patient informed of any privacy concerns related to visit: Yes Minutes spent on Phone/Video with Pt.: 45 Assessment & Plan Assessment & Plan (1) Morbid obesity: Code(s): E66.01 - Morbid (severe) obesity due to excess calories Category: Medical Plan: 1.? Plan for lap sleeve gastrectomy. If diaphragmatic or ventral hernias are present at time of surgery, these will be repaired laparoscopically as well. I emphasized the importance of close follow-up, adherence to instructions and good communication. The surgery does not replace the need to change your lifestlyle which is the cause of the obesity problem. The surgery provides the motivation to try again to change your lifestyle, it reduces the appetite and make the transition to a better lifestyle easier and doubles the amount of weight you would lose compared to doing the lifestyle change without the surgery. You will need to be on a liquid diet with protein shakes for 2 weeks before surgery to maximize weight loss and boost your nutritional status to recover better from surgery and also for the first two weeks after surgery to let the stomach heal before we introduce other foods. After the first 2 weeks we will introduce protein bars and soft foods like scrambled eggs, cottage cheese and yogurt and after the 6th week will introduce meat, fish and cooked vegetables in small amounts. Over time you should be able to eat everything in small amounts. Side effects like nausea, vomiting, heartburn or abdominal pain are not common in the practice unless you are not following in the practice. This operation requires lifetime commitment to following in our practice and communication with me. You will much less weight and experience side effects if you don?t communicate or not following in the practice. Complications are rare and in our practice is about 1/10 of the national average. However, you can develop bleeding that may require transfusion (hasn?t happened for year in the practice), you may from complications (we did not have any deaths in the practice) and infections. Infections are usually a result of breakdown in communication or not understanding or following directions correctly. They are difficult to treat, they can happen during the first 6 weeks, they may require to be in the hospital for weeks or even months, not being able to eat by mouth and you may have drains and surgeries to try and correct the issue. Other risks and complications include possible conversion to an open procedure, leaks, small bowel obstruction, blood clots, cardiac, or pulmonary complications, as equipment operator intermodal yard complications such as ulcers, insufficient weight loss and vitamin deficiencies. 2. You will receive a link of our software aga to generate an individualized nutritional and exercise plan specific for you. Please send me a screenshot of t he plans you will generate Meal to include lean meat (beef, fish, pork, turkey, chicken), or kyrgyz yogurt, or egg whites, or beans with a salad with olive oil and fruits (berries, pears, apples, kiwi). Avoid salt, breads, potatoes, rice, pasta, desserts. ?3. If you choose shakes, each shake would be drunk slowly, like coffee in a period of 2 hours. ?4. If you choose bars, cut each bar in 4 pieces and eat each piece in 30min ?to make each bar last 2 hours. ?5. I emphasized the importance of measuring accurately the food portion and measure it when serving the food in plate ?6. The meal portions include a specific number of forks of meat and salad. You always eat the meat portion but you can replace up to half of salad/vegetables portion with rice, potatoes or pasta, or a fruit ?if you like. The less you do it the better weight loss will be. ?7. One full-size fork is what it can be scooped on the fork without falling aside and not what can be bit with the fork. Use regular forks like those you find in a typical restaurant. ?8.? Please buy the body composition scale we discussed and send me weight measurements as soon as possible and then once a week. Always include your diet and exercise plan. 9. The best choice would be to purchase a stationary bike, elliptical or treadmill at home that can track calories. Let me know if you do so I can give you an exercise plan. ?10.?It is important of avoiding and for at least 18 months postoperatively and has been discussed at the infosession. ?11. Goal is to lose at least 1.5-2lbs per week ?12. Goal to lose 10% of your weight before surgery, which is about 23lbs. Ultimate weight goal: 209lbs before surgery 13. Please follow the diet plan exactly without any change. If you don't like something about the plan or you feel hungry you need to communicate with me so I can help you revise the plan. You should not change the plan yourself. 14. To be scheduled for EGD due to the history of sleeve gastrectomy and anemia. The possibility of biopsies was discussed. Patient needs to avoid use of NSAIDs and aspirin for 1 week prior to EGD. You must be on liquids only the day before your endoscopy. Risks of perforation and bleeding was discussed with the patient. This will be an outpatient procedure with IV sedation. Orders: Orders Hemoglobin A1c Today E66.01 - Morbid (severe) obesity due to excess calories, K21.9 - Gastro-esophageal reflux disease without esophagitis, R03.0 - Elevated blood-pressure reading, without diagnosis of hypertension Complete Blood Count Auto Diff Today E66.01 - Morbid (severe) obesity due to excess calories, K21.9 - Gastro-esophageal reflux disease without esophagitis, R03.0 - Elevated blood-pressure reading, without diagnosis of hypertension Lipid Panel Today E66.01 - Morbid (severe) obesity due to excess calories, K21.9 - Gastro-esophageal reflux disease without esophagitis, R03.0 - Elevated blood-pressure reading, without diagnosis of hypertension IRON PROFILE Today E66.01 - Morbid (severe) obesity due to excess calories, K21.9 - Gastro-esophageal reflux disease without esophagitis, R03.0 - Elevated blood-pressure reading, without diagnosis of hypertension C Reactive Protein Today E66.01 - Morbid (severe) obesity due to excess calories, K21.9 - Gastro-esophageal reflux disease without esophagitis, R03.0 - Elevated blood-pressure reading, without diagnosis of hypertension Vitamin B1 Today E66.01 - Morbid (severe) obesity due to excess calories, K21.9 - Gastro-esophageal reflux disease without esophagitis, R03.0 - Elevated blood- pressure reading, without diagnosis of hypertension Vitamin A Today E66.01 - Morbid (severe) obesity due to excess calories, K21.9 - Gastro-esophageal reflux disease without esophagitis, R03.0 - Elevated blood- pressure reading, without diagnosis of hypertension TSH reflex Free T4 Today E66.01 - Morbid (severe) obesity due to excess calories, K21.9 - Gastro-esophageal reflux disease without esophagitis, R03.0 - Elevated blood-pressure reading, without diagnosis of hypertension XR chest 2V Today E66.01 - Morbid (severe) obesity due to excess calories, K21.9 - Gastro-esophageal reflux disease without esophagitis, R03.0 - Elevated blood-pressure reading, without diagnosis of hypertension ECG 12 lead EKG Today E66.01 - Morbid (severe) obesity due to excess calories, K21.9 - Gastro-esophageal reflux disease without esophagitis, R03.0 - Elevated blood-pressure reading, without diagnosis of hypertension Insulin Today E66.01 - Morbid (severe) obesity due to excess calories, K21.9 - Gastro-esophageal reflux disease without esophagitis, R03.0 - Elevated blood- pressure reading, without diagnosis of hypertension H Pylori Breath Test Today E66.01 - Morbid (severe) obesity due to excess calories, K21.9 - Gastro-esophageal reflux disease without esophagitis, R03.0 - Elevated blood-pressure reading, without diagnosis of hypertension Comprehensive Met. Panel Today E66.01 - Morbid (severe) obesity due to excess calories, K21.9 - Gastro-esophageal reflux disease without esophagitis, R03.0 - Elevated blood-pressure reading, without diagnosis of hypertension Vitamin B12 and Folate Today E66.01 - Morbid (severe) obesity due to excess calories, K21.9 - Gastro-esophageal reflux disease without esophagitis, R03.0 - Elevated blood-pressure reading, without diagnosis of hypertension Zinc Today E66.01 - Morbid (severe) obesity due to excess calories, K21.9 - Gastro-esophageal reflux disease without esophagitis, R03.0 - Elevated blood- pressure reading, without diagnosis of hypertension Ferritin Today E66.01 - Morbid (severe) obesity due to excess calories, K21.9 - Gastro-esophageal reflux disease without esophagitis, R03.0 - Elevated blood- pressure reading, without diagnosis of hypertension Vitamin D 25-OH Total Today E66.01 - Morbid (severe) obesity due to excess cira ories, K21.9 - Gastro-esophageal reflux disease without esophagitis, R03.0 - Elevated blood-pressure reading, without diagnosis of hypertension US abdomen comp w elastography Today E66.01 - Morbid (severe) obesity due to excess calories, K21.9 - Gastro-esophageal reflux disease without esophagitis, R03.0 - Elevated blood-pressure reading, without diagnosis of hypertension FL upper GI w air Today E66.01 - Morbid (severe) obesity due to excess calories, K21.9 - Gastro-esophageal reflux disease without esophagitis, R03.0 - Elevated blood-pressure reading, without diagnosis of hypertension Referrals Behavioral Health Referral E66.01 - Morbid (severe) obesity due to excess calories, K21.9 - Gastro-esophageal reflux disease without esophagitis, R03.0 - Elevated blood-pressure reading, without diagnosis of hypertension Nutrition/Dietitian Referral E66.01 - Morbid (severe) obesity due to excess calories, K21.9 - Gastro-esophageal reflux disease without esophagitis, R03.0 - Elevated blood-pressure reading, without diagnosis of hypertension
[2024-03-24 10:06] VITALS: BMI 45.4
== END 2024-03-24 10:35 | disposition home or self-care (01) ==
LOC: HO.HBS 07:54
PROVIDERS: Visit Provider Surgery
DX: E66.01 Morbid (severe) obesity due to excess calories (principal)
CPT/HCPCS: 99204

== ENCOUNTER 2024-04-02 11:21 | Outpatient (REF) | payer OTHER, SELFPAY ==
--- NOTE | ~2024-04-02 | XR_ITS ---
CLINICAL HISTORY: E66.01 - Morbid (severe) obesity due to excess calories 2 view chest x-ray Comparison: None Findings: The lungs are clear. Normal size heart. No acute fracture. IMPRESSION: 1. No acute findings. This document has been electronically signed by: Josef Munoz MD on 04/04/2024 08:10:53
--- NOTE | 2024-04-02 11:26 | ECG_ITS ---
Test Reason : morbid obs Blood Pressure : */* mmHG Vent. Rate : 95 BPM Atrial Rate : 95 BPM P-R Int : 174 ms QRS Dur : 82 ms QT Int : 338 ms P-R-T Axes : 47 30 -9 degrees QTcB Int : 424 ms Normal sinus rhythm Normal ECG No previous ECGs available Referred By: Shad Dior Electronically Signed By: Eris Munroe
[2024-04-02 12:00] LABS: MANUAL DIFF FLAG NO
[2024-04-02 12:39] LABS: Basophils Absolute Auto 0.1 X10*3/uL (0.0-0.2); Basophils Percent Auto 0.5 % (0-2); Eosinophils Absolute Auto 0.2 X10*3/uL (0.0-0.4); Eosinophils Percent Auto 2.1 % (0-4); Hemoglobin 11.3 g/dl (12.0-16.0); Imm Gran Abs Auto 0.04 X10*3/uL (0.00-0.03); Imm Gran Pct Auto 0.4 % (0.0-0.4); Lymphocytes Percent Auto 20.9 % (20-40); Mean Corpuscular HGB Conc 31.4 g/dl (31.0-35.0); Mean Corpuscular Hemoglobin 26.3 pg (27.0-33.0); Mean Corpuscular Volume 83.9 fL (80.0-98.0); Monocytes Absolute Auto 0.6 X10*3/uL (0.1-1.2); Monocytes Percent Auto 6.5 % (2-11); Neutrophils Absolute Auto 6.6 x10*3/uL (2.0-8.3); Neutrophils Percent Auto 69.6 % (45-73); Platelet Count 356 X10*3/uL (160-400); Red Blood Count 4.29 X10*6/uL (4.20-5.50); Red Cell Distribution Width 14.5 % (11.0-16.0); White Blood Count 9.4 X10*3/uL (4.8-10.8)
[2024-04-02 13:09] LABS: Alanine Aminotransferase 73 U/L (0-31); Alkaline Phosphatase 79 U/L (39-117); Anion Gap 11 (12-20); Aspartate Amino Transferase 37 U/L (5-31); Bilirubin Total 0.5 mg/dL (0.0-1.0); Blood Urea Nitrogen 7 mg/dL (9-16); C Reactive Protein 1.53 mg/dL (< or = 0.50); Calcium 8.9 mg/dL (8.4-10.2); Carbon Dioxide 21 mmol/L (22-29); Chloride 109 mmol/L (96-108); Cholesterol 127 mg/dL (<200); Estimated Glomerular Filt Rate > 60; Glucose Random 84 mg/dL (60-115); HDL Cholesterol 41 mg/dL (>40); Iron 83 mcg/dL (30-160); LDL Cholesterol Calculated 69 mg/dL (<100); Percent Iron Saturation 23 % (15-50); Potassium 3.8 mmol/L (3.3-5.1); Sodium 137 mmol/L (135-145); Total Iron Binding Capacity 365 mcg/dL (228-428); Total Protein 7.8 g/dL (6.5-8.0); Triglycerides 85 mg/dL (<150); Unsaturated Iron Binding 282 ug/dL
[2024-04-02 13:29] LABS: Estimated Average Glucose 114 mg/dL; Hemoglobin A1c % 5.6 % (<6.0); Total Hemoglobin (HGBA1C) 2991.2416 umol/L
[2024-04-02 13:36] LABS: Ferritin 41 ng/mL (10-122); TSH reflex Free T4 1.27 uIU/mL (0.32-4.0); Vitamin D 25-OH Total 20.4 ng/mL (>30)
[2024-04-02 13:43] LABS: Folate 16.1 ng/mL (> or = 4.0); Vitamin B12 763 pg/mL (200-900)
[2024-04-02 13:54] LABS: Insulin 30 uU/mL (2-29)
[2024-04-06 20:03] LABS: Zinc 66 mcg/dL (60-130)
[2024-04-08 02:58] LABS: Vitamin A 29 mcg/dL (38-98)
[2024-04-10 06:18] LABS: Vitamin B1 <6 nmol/L (8-30)
== END 2024-04-02 11:22 | disposition home or self-care (01) ==
LOC: HO.XRAY 11:21
PROVIDERS: Visit Provider Surgery
DX: E66.01 Morbid (severe) obesity due to excess calories (principal); K21.9 Gastro-esophageal reflux disease without esophagitis; R03.0 Elevated blood-pressure reading, without diagnosis of hypertension
CPT/HCPCS: 36415; 71046; 80053; 80061; 82306; 82607; 82728; 82746; 83036; 83525; 83540; 84425; 84443; 84590; 84630; 85025; 86140; 93005

== ENCOUNTER → 2024-04-02 11:26 | Outpatient (BNV) | payer OTHER, SELFPAY | PROVIDERS: Visit Provider Internal Medicine Cardiovascular Disease | DX: E66.01 Morbid (severe) obesity due to excess calories (principal) | CPT/HCPCS: 93010 ==

== ENCOUNTER → 2024-04-02 12:07 | Outpatient (BNV) | payer OTHER, SELFPAY | PROVIDERS: Visit Provider Specialist | DX: E66.01 Morbid (severe) obesity due to excess calories (principal) | CPT/HCPCS: 71046 ==

== ENCOUNTER 2024-04-16 10:16 | Outpatient (AMB) | payer OTHER, SELFPAY ==
--- NOTE | 2024-04-16 10:05 | MHC.WMTHER ---
Intake Intake Visit Reasons: VIDEO Intake Allergies No Known Allergies Allergy (Verified 03/24/24 09:58) [facility] Medical History (Updated 04/14/24 @ 19:29 by Shad Dior MD) GERD (gastroesophageal reflux disease) Morbid obesity Missed Threatened Obesity (BMI 35.0-39.9 without comorbidity) Surgical History (Reviewed 03/18/24 @ 14:03 by Tequila Valladares [facility]) Hx of cholecystectomy Family History (Updated 03/21/24 @ 09:25 by Yamileth Collier CMA) Mother No problems noted. Father No problems noted. Social History (Updated 03/21/24 @ 09:30 by Yamileth Collier CMA) Alcohol intake: never Patient Tobacco Use Status: Never used Tobacco Gender identity: Female Female Reproductive History Menstrual Age of Menarche: 13 Behavioral Health Assessment Weight Management Therapy Therapy Notes Details PT is a 29-year-old female presenting for her initial behavioral health () assessment as part of the surgical weight loss program. PT states that she learned about the program through a friend, as she has been struggling with weight loss for several years. Presenting Concerns Referral Source P-Provider. PT has initial visit with Dr Roland on 03/24/2024. Reason for referral Completion of behavioral health assessment as part of process for weight-loss surgery. Precipitating Event Obesity. Living Situation Current Living Situation Rent At risk of losing current housing? No Satisfied with current living situation? Yes Comments PT lives with her and their dog. Food/Weight/Diet Expectations of change The initial goal is to lose 10% of her weight before surgery, which is about 23 lbs. The Ultimate weight goal is 209lbs before surgery. PT started the program at 232 Lbs, and her most recent weight as of 04/11/2024 is 225 lbs. PT's target weight is 130 lbs. PT is implementing the following: Current meal plan: Combination of shakes, bars, and one meal (7F/7F) Exercise plan: Treadmill at home. Started a few days ago. Intents to do 5 days a week, aiming for burning 400Cal each day. History/Relationship with food PT reports she likes fried foods and bread. PT reports at times she used food as a comfort after either a good/bad day or week. On the other hand, most of her family-related activities are food-related or involves food, Like eating out. With her family, their gatherings also include foods. Example of meals before starting the program: Breakfast: Lunch: Dinner: Snacks: Drinks/Liquids: History/Relationship with weight PT doesn't remember ever being at her heathy or around 120 lbs as an adult. And she was overweight as a child. PT reports after having 2 miscarriages' 3-4 years ago, and she has noticed a weight gain, as this was a very sad period and she turned to food for comfort. In the last 10 years, the patient's Lowest weight was 170 lbs. and highest 237Lbs. PT wants to be at least at 134Lbs. History/Relationship with dieting Exercising, Fasting with only 1 meal a day. Social History Family history and relationship PT is . No children. PT reports she had a good childhood, she has 1 brother and a sister. Parents are alive. Parental/Familial delivery manager obligations None. Developmental history and status None. Currently WNL. Social support Parents, brother and her 2 best friends. Community support None Presybeterian/Spirituality None. Cultural/Ethnic information . Parents born in [place]. She was born in [place], been in [place] since childhood. Legal Involvement and History Current or historical involvement with the legal system? None Education Highest grade completed HS. Preferred learning style Auditory and Visual Currently enrolled in educational program? No Interested in further educational program? 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 No Meaningful activities reading, mall/shopping. Financial Situation Describe current financial situation Comfortable Financial assistance? None Service Service? No Mental Health and Addiction Treatment Current/Past substance abuse? No Comments Alcohol: None Cigarettes/Tobacco: None Cannabis/Edibles: None Current/Past addictive behavior concerns? No Psychiatric history PT reports she has never been in MH treatment of any type. PT denies ever being in crisis or inpatient for mental health. There is no history and/or current concern about SI/SA and self-harm or other harm. Medical and Physical Health Summary Additional Medical History not covered in history None reported Sexual History concerns 2 misscarriages in the past. Physical exam in the last year? No Pain Screening Current pain? No Pain in the last few months? No Medications Is the patient compliant with medications? Yes Does the patient have Castillo Guardian in place? Not applicable Does the patient use complimentary health approaches? No Trauma/Abuse History History of trauma? No Questionnaires PHQ-9 Over the last 2 weeks, how often have you been bothered by any of the following problems? 1. Little interest or pleasure in doing things: several days 2. Feeling down, depressed, or hopeless: not at all 3. Trouble falling or staying asleep, or sleeping too much: several days 4. Feeling tired or having little energy: several days 5. Poor appetite or overeating: several days 6. Feeling bad about yourself - or that you are a failure or have let yourself or your family down: not at all 7. Trouble concentrating on things, such as reading the newspaper or watching television: not at all 8. Moving or speaking so slowly that other people could have noticed. Or the opposite - being so fidgety or restless that you have been moving around a lot more than usual: not at all 9. Thoughts that you would be better off or of hurting yourself in some way: not at all Total score: 4 Depression Screening Interpretation: Negative (From new PT pack scanned at intake. ) Depression Screening Done: Yes Source: Developed by Drs. Yonatan Yancey, Ania Rosa, Raza Roberts and colleagues, with an educational ana from [employer]. Assessment & Plan Assessment & Plan (1) Inappropriate diet and eating habits: Code(s): Z72.4 - Inappropriate diet and eating habits (2) Adjustment disorder, unspecified: Code(s): F43.20 - Adjustment disorder, unspecified Plan PT will return in two weeks to complete the assessment. So far she aopears to be a great candidate. Next aga: 04/30/24 at 10am, Telehealth Telehealth Telehealth Telehealth Platform: [employer] Location of provider rendering services: other Location of patient: address on file Patient Identification confirmed using: Name, : Yes Telehealth method: voice only Patient verbally consented to treatment: Yes Patient verbally consented to billing insurance company: Yes Patient informed of any privacy concerns related to visit: Yes Minutes spent on Phone/Video with Pt.: 60 Coding Level of Care Code New Pt Tele Psy Diag Eval (85591) Patient Type New Diagnoses Inappropriate diet and eating habits Z72.4 Adjustment disorder, unspecified F43.20 Time Spent (min) 60
--- OUTSIDE RECORDS SUMMARY | 2024-04-16 10:51 | XMS_ITS | Encounter Summary ---
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 Name Role Phone Physician, No Pcp Primary Care Provider Unavaila ble Reason for Visit * Reason Comments Extremity Weakness Extremity numbness a nd confusion x 2 hours Encounter Details Date Type Department Care Team ([facility] st Contact Info) Description 03/25/2024 5:52 AM EST - 03/25/2024 12:22 PM EST Emergency [facility] Emergency [address] [place] [id number] Guanako Gurrola MD [address] [place] [address] Js Cárdenas, DO [address] [place] [address] Acute nonintractable headache, unspecified headache type (Primary Dx) Discharge Disposition: Home or Self Care Social History Tobacco Use Types Packs/Day Years Used Date Smoking Tobacco: Never Alcohol Use Standard Drinks/Week Comments Not Currently 0 (1 standard drink = 0.6 oz pur e alcohol) Comments Unknown Sex and Gender Information Value Date Recorded Sex Assigned at Not on file Legal Sex Female 1:46 AM EST Gender Identity Not on file Sexual Orientation Not on file documented as of this encounter Last Filed Vital Signs Vital Sign Reading Time Taken Comments Blood Pressure 136/69 03/25/2024 9:51 AM EST Pulse 114 03/25/2024 9:51 AM EST Temperature 37.1 ??C (98.7 ??F) 03/25/2024 9:51 AM ES T Respiratory Rate 18 03/25/2024 9:51 AM EST Oxygen Saturation 97% 03/25/2024 9:51 AM EST Inhaled Oxygen Concentration - - Weight 90.7 kg (200 lb) 03/25/2024 9:51 AM EST Height 152.4 cm (5') 03/25/2024 9:51 AM EST Body Mass Index 39.06 03/25/2024 9:51 AM EST documented in this encounter Functional Status * Are you deaf or do you have serious difficulty hearing? Answer Date of Assessment Author No 03/25/2024 6:01 AM Anny Summers RN * Are you blind or do you have serious difficulty seeing, even when wearing glasses? Answer Date of Assessment Author No 03/25/2024 6:01 AM Anny Summers RN * Do you have serious difficulty walking or climbing stairs? Answer Date of Assessment Author No 03/25/2024 6:01 AM Anny Summers RN * Do you have serious difficulty dressing or bathing? Answer Date of Assessment Author No 03/25/2024 6:01 AM Anny Summers RN * Because of a physical, mental, or emotional condition, do you have serious difficulty doing errandsalone such as visiting the doctor? Answer Date of Assessment Author No 03/25/2024 6:01 AM Anny Summers RN documented as of this encounter Mental Status * Because of a physical, mental, or emotional condition, do you have serious difficulty concentrating, remembering, or making decisions? (5 years old or older) Answer Entry Date Author No 03/25/2024 6:01 AM Anny Summers RN documented in this encounter Discharge Instructions * Attachments The following attachments cannot be sent through Care Everywhere. * Headache (Chadian) documented in this encounter Medications at Time of Discharge metoclopramide (REGLAN) 10 mg tablet Take 1 tablet (10 mg total) by mouth every 6 (six) hours for 7 days. 28 tablet 03/25/2024 04/01/2024 documented as of this encounter Ordered Prescriptions Prescription Sig Dispense Quantity Refills Last Filled Start Date End Date metoclopramide (REGLAN) 10 mg tablet Take 1 tablet (10 mg total) by mouth every 6 (six) hours for 7 days. 28 tablet 03/25/2024 04/01/2024 documented in this encounter Discharge Disposition Disposition Code Departure Means Destination Comment s Home or Self Care Patient will f/u with pcp instructed when to return, ambulatory with steady gait at time of depature. documented in this encounter Progress Notes * MAGED Gamboa - 03/25/2024 11:05 AM EST Clinical Impressions as of 03/25/24 1106 Acute nonintractable headache, unspecified headache type Data Unavailable No diagnosis found. Procedures Patient received in signout. Upon my evaluation, she states that her paresthesias are much better but her headache seems to be getting worse and she is increasingly nauseous. Head CT was added. She was given Reglan, Toradol and Benadryl. She is now feeling much better. Head CT negative. Symptoms have resolved. Will discharge with prescription for Reglan. PCP follow-up. Discharged in stable condition. Cosigned by Guanako Gurrola MD at 03/26/2024 5:56 AM EST * Little Abrams RN - 03/25/2024 5:58 AM EST Per EMS patient states she is confused, jumbling words together, and had bilateral extremity numbness. Called in as a stroke - Per MD stroke ruled out. * Guanako Gurrola MD - 03/25/2024 5:48 AM EST Emergency Medicine Note Patient Name: Ivelisse Edward Initial Evaluation: 03/25/2024 : 1995 Patient's PCP: No Pcp Physician Emergency Physician: Guanako Gurrola MD History of Present Illness Chief Complaint: Chief Complaint Patient presents with Extremity Weakness Extremity numbness and confusion x 2 hours HPI: 29-year-old female, no significant past medical history, presents with extremity numbness and altered mental status. Patient states she woke up around 430 with some numbness in her bilateral lower extremities that started in her feet and radiated all the way up to her abdomen. It then continued up to her right arm, and then across to her left arm, and then up into her face. She stated she had some difficulty in word finding, as well as some difficulty with motor function as she spilled coffee. EMS was called and patient was brought in for evaluation. They initially called her as a code stroke, on arrival in the emergency department she was neurologically intact except for some mild conf usion. She has no other complaints at this time. No fever, no nausea or vomiting. ROS: I have performed a ROS with the pertinent positives and negatives documented in the history ofpresent illness. Previous History No past medical history on file. Past Surgical History: Procedure Laterality Date CHOLECYSTECTOMY 03/21/2021 PROCEDURE: [place] LAPAROSCOPY SURG CHOLECYSTECTOMY; COMMENT: Dr. Kenney Caicedo, [facility] Social History Tobacco Use Smoking status: Never Substance Use Topics Alcohol use: Not Currently Drug use: Never Family History Problem Relation Name Age of Onset Heart failure Father Diabetes Father No Known Problems Mother has No Known Allergies. No current facility-administered medications on file prior to encounter. No current outpatient medications on file prior to encounter. Physical Exam ED Triage Vitals [03/25/24 0600] Temp Heart Rate Resp BP 37.3 ??C (99.1 ??F) (!) 115 18 (!) 141/65 SpO2 Temp src Heart Rate Source Patient Position 98 % -- -- -- BP Location FiO2 (%) -- -- General: Well-appearing, well nourished, in no acute distress HEENT: PERRL, EOMI, external ears and nose appear unremarkable, airway is patent Neck: Supple, full range of motion Chest: Clear to auscultation; no evidence of respiratory distress Circulatory: RRR, extremities well perfused Abdomen: Non-distended, Non-Tender Extremities: Normal ROM, No edema Skin: Warm and dry Neuro: Alert and oriented, no focal deficits, cranial nerves are all intact, strength is 5 out of 5bilateral upper and bilateral lower extremities. Results Labs Reviewed COMPREHENSIVE METABOLIC PANEL - Abnormal Result Value Sodium 137 Potassium 4.1 Chloride 104 CO2 25 Anion Gap 8 Glucose 103 (*) BUN 11 Creatinine 0.76 eGFR 110 BUN/Creatinine Ratio 14.5 Calcium 9.2 AST (SGOT) 21 ALT (SGPT) 57 Alkaline Phosphatase 93 Total Protein 7.6 Albumin 3.7 Total Bilirubin 0.3 CBC WITH AUTO DIFFERENTIAL - Abnormal WBC 11.7 (*) RBC 4.30 Hemoglobin 11.1 (*) Hematocrit 35.5 MCV 83.3 MCH 26.1 (*) MCHC 31.3 (*) RDW 14.1 Platelets 382 MPV 9.3 NRBC 0.0 NRBC Absolute 0.00 Neutrophils Relative 69.7 Lymphocytes Relative 22.5 Monocytes Relative 6.0 Eosinophils Relative 0.9 Basophils Relative 0.5 Immature Granulocytes Relative 0.4 Neutrophils Absolute 8.15 (*) Lymphocytes Absolute 2.64 Monocytes Absolute 0.70 Eosinophils Absolute 0.11 Basophils Absolute 0.06 Immature Granulocytes Absolute 0.05 (*) URINALYSIS WITH REFLEX MICROSCOPIC AND CULTURE - Abnormal Specific [place] Urine 1.026 pH, Urine 7.0 Leukocytes, Urine Negative Nitrite, Urine Negative Protein, Urine Trace Glucose, Urine Negative Ketones, Urine 40 (*) Urobilinogen, Urine 1.0 Bilirubin, Urine Negative Blood, Urine Negative DRUG ABUSE SCREEN 8A PANEL, URINE - Normal Amphetamine Screen, Ur Negative Barbiturate Screen, Ur Negative Benzodiazepine Screen, Ur Negative Cocaine Screen, Ur Negative Opiate Screen, Ur Negative Cannabinoid (THC) Screen, Ur Negative Oxycodone Screen, Ur Negative Fentanyl, Ur Negative Narrative: Assay cutoffs: Amphetamines 1000 ng/mL Barbiturates 200 ng/mL Benzodiazepines 200 ng/mL Cocaine 300 ng/mL Fentanyl 1 ng/mL Opiates 300 ng/mL Oxycodone 100 ng/mL THC 50 ng/mL Semi-quantitative assay for screening purposes only. Unconfirmed screening result should not be used for non-medical purposes. *ALTERNATE METHOD CONFIRMATION DONE UPON REQUEST ONLY* ETHANOL - Normal Ethanol Level <3 POC , URINE DIAGNOSTIC - Normal HCG, Ur POC Negative POC hCG Int QC Pass? Yes CBC AND DIFFERENTIAL Narrative: The following orders were created for panel order CBC and differential. Procedure Abnormality Status --------- ------ CBC auto differential[[id number]] Abnormal Final result Please view results for these tests on the individual orders. URINALYSIS WITH REFLEX MICROSCOPIC AND CULTURE Narrative: The following orders were created for panel order Urinalysis with reflex microscopic and culture. Procedure Abnormality Status --------- ------ Urinalysis with reflex ...[[id number]] Abnormal Final result Ledezma urine culture tube[[id number]] Please view results for these tests on the individual orders. Abnormal Labs Reviewed COMPREHENSIVE METABOLIC PANEL - Abnormal; Notable for the following components: Result Value Glucose 103 (*) All other components within normal limits CBC WITH AUTO DIFFERENTIAL - Abnormal; Notable for the following components: WBC 11.7 (*) Hemoglobin 11.1 (*) MCH 26.1 (*) MCHC 31.3 (*) Neutrophils Absolute 8.15 (*) Immature Granulocytes Absolute 0.05 (*) All other components within normal limits URINALYSIS WITH REFLEX MICROSCOPIC AND CULTURE - Abnormal; Notable for the following components: Ketones, Urine 40 (*) All other components within normal limits CT Head wo Contrast Final Result NO ACUTE INTRACRANIAL ABNORMALITY. -------- FINAL REPORT -------- Dictated By: ZEKE AGUIRRE Dictated Date: 03/25/2024 10:20 ET Assigned Physician: ZEKE AGUIRRE Reviewed and Electronically Signed By: ZEKE AGUIRRE Signed Date: 03/25/2024 10:31 ET Workstation ID: [id number] Transcribed By: Self Edit Transcribed Date: 03/25/2024 10:20 ET I have discussed the incidental/abnormal imaging and/or lab abnormalities with the patient and haveinstructed them the need for further evaluation and workup with their primary care doctor. I have provided the patient with a paper copy of the abnormality. The laboratory results, imaging results and other diagnostic exam results were reviewed in the EMR. EKG Interpretation Critical Care Time None ? Medical Decision Making Medications sodium chloride 0.9 % bolus 1,000 mL (0 mL intravenous Stopped 03/25/24 1222) ondansetron (PF) (ZOFRAN) injection 4 mg (4 mg intravenous Given 03/25/24 0702) ketorolac (TORADOL) injection 15 mg (15 mg intravenous Given 03/25/24 0747) acetaminophen (TYLENOL) tablet 1,000 mg (1,000 mg oral Given 03/25/24 1003) metoclopramide (REGLAN) injection 10 mg (10 mg intravenous Given 03/25/24 1003) diphenhydrAMINE (BENADRYL) injection 25 mg (25 mg intravenous Given 03/25/24 1003) sodium chloride 0.9 % bolus 1,000 mL (0 mL intravenous Stopped 03/25/24 1222) Clinical Impressions as of 03/26/24 0653 Acute nonintractable headache, unspecified headache type 29-year-old female, no significant past medical history, who presents with vague neurologic complaints. Potential etiologies for this patient's symptoms include but are not limited to viral upper respiratory infection, meningitis, electrolyte abnormality, dehydration. This is unlikely to be a CVA/TIA given her young age, carotid artery dissection is a remote possibility as well. Screening labs, IV fluids, pending at this time. Patient is neurologically intact, this is unlikely to be CVA/TIA, there is no clinical indication for imaging at this time. Labs, IV fluids are pending at this time. Will monitor. Care transferred to the morning team for follow-up and final disposition. Procedures Procedures Diagnosis 1. Acute nonintractable headache, unspecified headache type Disposition Discharge ED Prescriptions Medication Sig Dispense Start Date End Date Auth. Provider metoclopramide (REGLAN) 10 mg tablet Take 1 tablet (10 mg total) by mouth every 6 (six) hours for 7days. 28 tablet 03/25/2024 04/01/2024 MAGED Gamboa Physician Attestation Guanako Gurrola MD 03/25/24 0705 Guanako Gurrola MD 03/26/24 0653 documented in this encounter Plan of Treatment Not on file documented as of this encounter Procedures Procedure Name Priority Date/Time Associated Diagnosis Comments CT HEAD WO CONTRAST STAT 03/25/2024 1 0:10 AM EST POC , URINE DIAGNOSTIC STAT 03/25/2024 9:59 AM EST URINALYSIS WITH REFLEX MICROSCOPIC AND CULTURE STAT 03/25/2024 9:50 AM EST LEDEZMA URINE CULTURE TUBE STAT 03/25/2024 9:50 AM EST DRUG ABUSE SCREEN 8A PANEL, URINE STAT 03/25/2024 9:50 AM EST URINALYSIS WITH REFLEX MICROSCOPIC AND CULTURE STAT 03/25/2024 9:50 AM EST CBC WITH AUTO DIFFERENTIAL STAT 03/25/2024 7:55 AM EST CBC AND DIFFERENTIAL STAT 03/25/2024 7:55 AM EST ETHANOL STAT 03/25/2024 7:55 AM EST COMPREHENSIVE METABOLIC PANEL STAT 03/25/2024 7:55 AM EST documented in this encounter Results * CT Head wo Contrast (03/25/2024 10:10 AM EST) Anatomical Region Laterality Modality Head and Neck Computed Tomogra phy 03/25/2024 10:2 0 AM EST Impressions 03/25/2024 10:31 AM EST NO ACUTE INTRACRANIAL ABNORMALITY. -------- FINAL REPORT -------- Dictated By: ZEKE AGUIRRE Dictated Date: 03/25/2024 10:20 ET Assigned Physician: ZEKE AGUIRRE Reviewed and Electronically Signed By: ZEKE AGUIRRE Signed Date: 03/25/2024 10:31 ET Workstation ID: [id number] Transcribed By: Self Edit Transcribed Date: 03/25/2024 10:20 ET Narrative 03/25/2024 10:31 AM EST PROCEDURE: HEAD CT INDICATION: Headache, paresthesia TECHNIQUE: CT of the head without intravenous contrast. Multiplanar reformats. The examination was performed utilizing dose reduction techniques. Total DLP 937 COMPARISON: ??No priors available. FINDINGS: ?? No acute territorial infarct, mass effect, or intracranial hemorrhage. Ledezma-white differentiation is preserved. ??Brain parenchyma is within normal limits. Ventricles, sulci, and cisterns are normal in size and configuration. No hydrocephalus or volume loss. Visualized paranasal sinuses and mastoid air cells are clear. No scalp hematoma or skull fracture. Procedure Note Zeke Aguirre MD - 03/25/2024 PROCEDURE: HEAD CT INDICATION: Headache, paresthesia TECHNIQUE: CT of the head without intravenous contrast. Multiplanarreformats. The examination was performed utilizing dose reductiontechniques. Total DLP 937 COMPARISON: No priors available. FINDINGS: No acute territorial infarct, mass effect, or intracranial hemorrhage. Ledezma-white differentiation is preserved. Brain parenchyma is withinnormal limits. Ventricles, sulci, and cisterns are normal in size and configuration. Nohydrocephalus or volume loss. Visualized paranasal sinuses and mastoid air cells are clear. No scalp hematoma or skull fracture. IMPRESSION: NO ACUTE INTRACRANIAL ABNORMALITY. -------- FINAL REPORT -------- Dictated By: ZEKE AGUIRRE Dictated Date: 03/25/2024 10:20 ET Assigned Physician: ZEKE AGUIRRE Reviewed and Electronically Signed By: ZEKE AGUIRRE Signed Date: 03/25/2024 10:31 ET Workstation ID: [id number] Transcribed By: Self Edit Transcribed Date: 03/25/2024 10:20 ET Marce LYNNE IMG CT PROCEDURES Final Resul t * POC , urine manually resulted (03/25/2024 9:59 AM EST) Pathologist [facility] HCG, Ur POC Negative Negative POC hCG Int QC Pass? Yes Yes Urine Urine specimen obtained by clean catch procedure / Unknown 03/25/2024 9:59 AM EST Js Cárdenas DO POINT OF CARE TEST ENTER/ED IT ORDERABLES Final Result * Ledezma urine culture tube (03/25/2024 9:50 AM EST) Pathologist [facility] Extra Tube Hold for add-ons. 03/26/2024 9:01 AM EST [facility] Comment:Auto resulted. Urine Urine specimen obtained by clean catch procedure / Unknown Non-blood Collection / Unknown 03/25/2024 9:50 AM EST 03/26/2024 7:09 AM EST us Guanako Gurrola MD LAB URINE ORDERABLES Final Resu lt [facility] [address] [place] [address], [place] [phone] * (ABNORMAL) Urinalysis with reflex microscopic and culture (03/25/2024 9:50 AM EST) Specific [place] Urine 1.026 1.003 - 1.030 LAB URINALYSIS - AUTOMATED METHOD 03/25/2024 11:09 AM [facility] pH, Urine 7.0 5.0 - 8.0 pH LAB URINALYSIS - AUTOMATED METHOD 03/25/2024 11:09 AM [facility] Leukocytes, Urine Negative Negative LAB URINALYSIS - AUTOMATED METHOD 03/25/2024 11:09 AM [facility] Nitrite, Urine Negative Negative LAB URINALYSIS - AUTOMATED METHOD 03/25/2024 11:09 AM [facility] Protein, Urine Trace <=Trace mg/dL LAB URINALYSIS - AUTOMATED METHOD 03/25/2024 11:09 AM [facility] Glucose, Urine Negative Negative mg/dL LAB URINALYSIS - AUTOMATED METHOD 03/25/2024 11:09 AM [facility] Ketones, Urine 40(A) Negative mg/dL LAB URINALYSIS - AUTOMATED METHOD 03/25/2024 11:09 AM [facility] Urobilinogen, Urine 1.0 0.2 - 1.0 mg/dL LAB URINALYSIS - AUTOMATED METHOD 03/25/2024 11:09 AM [facility] Bilirubin, Urine Negative Negative LAB URINALYSIS - AUTOMATED METHOD 03/25/2024 11:09 AM [facility] Blood, Urine Negative Negative LAB URINALYSIS - AUTOMATED METHOD 03/25/2024 11:09 AM [facility] Urine Urine specimen obtained by clean catch procedure / Unknown Non-blood Collection / Unknown 03/25/2024 9:50 AM EST 03/25/2024 11:03 AM EST us Guanako Gurrola MD LAB URINE ORDERABLES Final Resu lt [facility] [address] [place] [address], * Drug abuse screen 8a panel, urine (03/25/2024 9:50 AM EST) Amphetamine Screen, Ur Negative Negative LAB CHEMISTRY METHOD 03/25/2024 11:34 AM [facility] Comment:Certain OTC medicati ons containing ephedrine, phenylephrine, pseudoephedrine and phenylpropanolamine can cause false positive results. Barbiturate Screen, Ur Negative Negative LAB CHEMISTRY METHOD 03/25/2024 11:34 AM [facility] Benzodiazepine Screen, Ur Negative Negative LAB CHEMISTRY METHOD 03/25/2024 11:34 AM [facility] Cocaine Screen, Ur Negative Negative LAB CHEMISTRY METHOD 03/25/2024 11:34 AM [facility] Opiate Screen, Ur Negative Negative LAB CHEMISTRY METHOD 03/25/2024 11:34 AM [facility] Cannabinoid (THC) Screen, Ur Negative Negative LAB CHEMISTRY METHOD 03/25/2024 11:34 AM [facility] Comment:Specimens from patie nts taking pantoprazole sodium (Protonix) have been shown to produce false positive results. Oxycodone Screen, Ur Negative Negative LAB CHEMISTRY METHOD 03/25/2024 11:34 AM [facility] Fentanyl, Ur Negative Negative LAB CHEMISTRY METHOD 03/25/2024 11:34 AM [facility] Urine Urine specimen obtained by clean catch procedure / Unknown Non-blood Collection / Unknown 03/25/2024 9:50 AM EST 03/25/2024 11:03 AM EST Narrative [facility] - 03/25/2024 11:34 AM EST Assay cutoffs: Amphetamines ? 1000 ng/mL Barbiturates ?200 ng/mL Benzodiazepines ?? 200 ng/mL Cocaine ? 300 ng/mL Fentanyl ?1 ng/mL Opiates ? 300 ng/mL Oxycodone ? 100 ng/mL THC ?50 ng/mL Semi-quantitative assay for screening purposes only. Unconfirmed screening result should not be used for non-medical purposes. *ALTERNATE METHOD CONFIRMATION DONE UPON REQUEST ONLY* us Guanako Gurrola MD LAB URINE ORDERABLES Final Resu lt [facility] [address] [place] [address], * (ABNORMAL) CBC auto differential (03/25/2024 7:55 AM EST) WBC 11.7(H) 4.8 - 10.8 K/mcL LAB HEMETOLOGY METHOD 03/25/2024 8:04 AM [facility] RBC 4.30 3.80 - 4.80 M/[facility] LAB HEMETOLOGY METHOD 03/25/2024 8:04 AM [facility] Hemoglobin 11.1(L) 11.5 - 16.0 g/dL LAB HEMETOLOGY METHOD 03/25/2024 8:04 AM [facility] Hematocrit 35.5 35.0 - 47.0 % LAB HEMETOLOGY METHOD 03/25/2024 8:04 AM [facility] MCV 83.3 79.0 - 98.0 FL LAB HEMETOLOGY METHOD 03/25/2024 8:04 AM [facility] MCH 26.1(L) 27.0 - 32.0 pcg LAB HEMETOLOGY METHOD 03/25/2024 8:04 AM [facility] MCHC 31.3(L) 32.0 - 37.0 g/dL LAB HEMETOLOGY METHOD 03/25/2024 8:04 AM [facility] RDW 14.1 11.0 - 15.0 % LAB HEMETOLOGY METHOD 03/25/2024 8:04 AM [facility] Platelets 382 130 - 400 K/mcL LAB HEMETOLOGY METHOD 03/25/2024 8:04 AM [facility] MPV 9.3 7.0 - 11.0 FL LAB HEMETOLOGY METHOD 03/25/2024 8:04 AM [facility] NRBC 0.0 <1.0 % LAB HEMETOLOGY METHOD 03/25/2024 8:04 AM [facility] NRBC Absolute 0.00 <0.10 K/mcL LAB HEMETOLOGY METHOD 03/25/2024 8:04 AM [facility] Neutrophils Relative 69.7 % LAB HEMETOLOGY METHOD 03/25/2024 8:04 AM [facility] Lymphocytes Relative 22.5 % LAB HEMETOLOGY METHOD 03/25/2024 8:04 AM [facility] Monocytes Relative 6.0 % LAB HEMETOLOGY METHOD 03/25/2024 8:04 AM [facility] Eosinophils Relative 0.9 % LAB HEMETOLOGY METHOD 03/25/2024 8:04 AM [facility] Basophils Relative 0.5 % LAB HEMETOLOGY METHOD 03/25/2024 8:04 AM [facility] Immature Granulocytes Relative 0.4 % LAB HEMETOLOGY METHOD 03/25/2024 8:04 AM [facility] Neutrophils Absolute 8.15(H) 1.50 - 7.00 K/mcL LAB HEMETOLOGY METHOD 03/25/2024 8:04 AM EST [facility] Lymphocytes Absolute 2.64 1.00 - 5.00 K/mcL LAB HEMETOLOGY METHOD 03/25/2024 8:04 AM EST [facility] Monocytes Absolute 0.70 0.20 - 1.00 K/[facility] HEMETOLOGY METHOD 03/25/2024 8:04 AM EST [facility] Eosinophils Absolute 0.11 0.00 - 0.50 K/[facility] HEMETOLOGY METHOD 03/25/2024 8:04 AM EST [facility] Basophils Absolute 0.06 0.00 - 0.20 K/mcL LAB HEMETOLOGY METHOD 03/25/2024 8:04 AM EST [facility] Immature Granulocytes Absolute 0.05(H) 0.00 - 0.03 K/[facility] HEMETOLOGY METHOD 03/25/2024 8:04 AM EST [facility] Blood Venous blood specimen / Unknown Venipuncture / Unknown 03/25/2024 7:55 AM EST 03/25/2024 7:55 AM EST us Guanako Gurrola MD LAB BLOOD ORDERABLES Final Resu lt [facility] [address] [place] [address], * Ethanol (03/25/2024 7:55 AM EST) Ethanol Level <3 0 - 10 mg/dL LAB CHEMISTRY METHOD 03/25/2024 8:45 AM EST [facility] Blood Venous blood specimen / Unknown Venipuncture / Unknown 03/25/2024 7:55 AM EST 03/25/2024 7:55 AM EST us Guanako Gurrola MD LAB BLOOD ORDERABLES Final Resu lt [facility] [address] [place] [address], * (ABNORMAL) Comprehensive Metabolic Panel (CMP) (03/25/2024 7:55 AM EST) Sodium 137 133 - 145 mmol/L LAB CHEMISTRY METHOD 03/25/2024 8:29 AM [facility] Potassium 4.1 3.5 - 5.5 mmol/L LAB CHEMISTRY METHOD 03/25/2024 8:29 AM [facility] Chloride 104 96 - 110 mmol/L LAB CHEMISTRY METHOD 03/25/2024 8:29 AM [facility] CO2 25 21 - 32 mmol/L LAB CHEMISTRY METHOD 03/25/2024 8:29 AM [facility] [facility] Anion Gap 8 3 - 11 LAB CHEMISTRY METHOD 03/25/2024 8:29 AM [facility] Glucose 103(H) 70 - 100 mg/dL LAB CHEMISTRY METHOD 03/25/2024 8:29 AM [facility] BUN 11 5 - 25 mg/dL LAB CHEMISTRY METHOD 03/25/2024 8:29 AM [facility] Creatinine 0.76 0.50 - 1.10 mg/dL LAB CHEMISTRY METHOD 03/25/2024 8:29 AM [facility] eGFR 110 >=60 mL/min/1. 73m2 LAB CHEMISTRY METHOD 03/25/2024 8:29 AM [facility] Comment:Calculation based on the??Chronic Kidney Disease Epidemiology Collaboration (CKD-EPI) equation refit??without adjustment for race. BUN/Creatinine Ratio 14.5 LAB CHEMISTRY METHOD 03/25/2024 8:29 AM [facility] Calcium 9.2 8.5 - 10.5 mg/dL LAB CHEMISTRY METHOD 03/25/2024 8:29 AM EST [facility] AST (SGOT) 21 10 - 42 unit/L LAB CHEMISTRY METHOD 03/25/2024 8:29 AM [facility] ALT (SGPT) 57 10 - 60 unit/L LAB CHEMISTRY METHOD 03/25/2024 8:29 AM [facility] Alkaline Phosphatase 93 42 - 121 unit/L LAB CHEMISTRY METHOD 03/25/2024 8:29 AM [facility] Total Protein 7.6 6.0 - 8.0 g/dL LAB CHEMISTRY METHOD 03/25/2024 8:29 AM [facility] Albumin 3.7 3.2 - 5.0 g/dL LAB CHEMISTRY METHOD 03/25/2024 8:29 AM [facility] Total Bilirubin 0.3 0.0 - 1.4 mg/dL LAB CHEMISTRY METHOD 03/25/2024 8:29 AM [facility] Blood Venous blood specimen / Unknown Venipuncture / Unknown 03/25/2024 7:55 AM EST 03/25/2024 7:55 AM EST Guanako Gurrola MD LAB BLOOD ORDERABLES Final Resu lt [facility] [address] [place] [address], documented in this encounter Visit Diagnoses Diagnosis Acute nonintractable headache, unspecified headache type- Primary documented in this encounter Administered Medications Inactive Administered Medications - up to 3 most recent administrations Medication Order MAR Action Action Date Dose Rate Site acetaminophen (TYLENOL) tablet 1,000 mg 1,000 mg, oral, Once, On Sun03/25/24 at 0817, For 1 dose Given 03/25/2024 10:03 AM EST 1,000 mg diphenhydrAMINE (BENADRYL) injection 25 mg 25 mg, intravenous, Once, On Sun03/25/24 at 0944, For 1 dose Given 03/25/2024 10:03 AM EST 25 mg ketorolac (TORADOL) injection 15 mg 15 mg, intravenous, Once, On Sun03/25/24 at 0742, For 1 dose Given 03/25/2024 7:47 AM EST 15 mg metoclopramide (REGLAN) injection 10 mg 10 mg, intravenous, Once, On Sun03/25/24 at 0944, For 1 dose, Doses LESS than or equal to 10 mg can be given IV push undiluted over 1 minute Given 03/25/2024 10:03 AM EST 10 mg ondansetron (PF) (ZOFRAN) injection 4 mg 4 mg, intravenous, Once, On Sun03/25/24 at 0657, For 1 dose Given 03/25/2024 7:02 AM EST 4 mg sodium chloride 0.9 % bolus 1,000 mL 1,000 mL, intravenous, at 2,000 mL/hr, Administer over 30 Minutes, Once, On Sun03/25/24 at 0944, For 1 dose New Bag 03/25/2024 10:03 AM EST 1,000 mL 2000 mL/hr sodium chloride 0.9 % bolus 1,000 mL 1,000 mL, intravenous, at 1,000 mL/hr, Administer over 1 Hours, Once, On Sun03/25/24 at 0607, For 1 dose New Bag 03/25/2024 7:07 AM EST 1,000 mL 100 0 mL/hr documented in this encounter Active and Recently Administered Medications Times are shown in EST. Scheduled Medication Order 03/23/2024 03/24/2024 03/25/2024 acetaminophen (TYLENOL) tablet 1,000 mg (COMPLETED) 1,000 mg, oral, Once, On Sun03/25/24 at 0817, For 1 dose 1003 (Given - Provid er: Kamila Kevin RN - Comment: patient vomiting) diphenhydrAMINE (BENADRYL) injection 25 mg (COMPLETED) 25 mg, intravenous, Once, On Sun03/25/24 at 0944, For 1 dose 1003 (Given - Provid er: Kamila Kevin RN) ketorolac (TORADOL) injection 15 mg (COMPLETED) 15 mg, intravenous, Once, On Sun03/25/24 at 0742, For 1 dose 0747 (Given - Provid er: Kamila Kevin RN) metoclopramide (REGLAN) injection 10 mg (COMPLETED) 10 mg, intravenous, Once, On Sun03/25/24 at 0944, For 1 dose, Doses LESS than or equal to 10 mg can be given IV push undiluted over 1 minute 1003 (Given - Provid er: Kamila Kevin RN) ondansetron (PF) (ZOFRAN) injection 4 mg (COMPLETED) 4 mg, intravenous, Once, On Sun03/25/24 at 0657, For 1 dose 0702 (Given - Provid er: Sriram Estrada RN) sodium chloride 0.9 % bolus 1,000 mL (COMPLETED) 1,000 mL, intravenous, at 2,000 mL/hr, Administer over 30 Minutes, Once, On Sun03/25/24 at 0944, For 1 dose 1003 (New Bag - Prov ider: Kamila Kevin RN)1222 (Stopped - Provider: Kamila Kevin RN) sodium chloride 0.9 % bolus 1,000 mL (COMPLETED) 1,000 mL, intravenous, at 1,000 mL/hr, Administer over 1 Hours, Once, On Sun03/25/24 at 0607, For 1 dose 0707 (New Bag - Prov ider: Sriram Estrada RN)1222 (Stopped - Provider: Kamila Kevin RN) documented in this encounter Orders IV Count Last Ordered Date First Orde red Date INSERT PERIPHERAL IV 03/25/2024 documented in this encounter Care Teams Paint Brush Maker Relationship Specialty Start Date End Date Physician, No Pcp PCP - General 03/25/24 documented as of this encounter
--- OUTSIDE RECORDS SUMMARY | 2024-04-16 10:51 | XMS_ITS | Clinical Summary ---
Author Organization [address] Address [address] [place] [address] Phone Care Team Providers Care Nickel Plater Name Role Phone Unavailable Primary Care Provider [...] age to complete this topic Pneumococcal Vaccine (2 - 49 years) Aged Out No longer eligible based on patient's age to complete this topic Insurance [employer] Member Subscriber Plan / Payer (Ef fective 2022-) Name:Ivelisse Edward Relation to Subscriber:Self Name:Ivelisse Edward Payer ID:[id number] Group ID:Not on file Type:Not on file Address: [place] [phone] [employer] [place] [address]
--- OUTSIDE RECORDS SUMMARY | 2024-04-16 10:51 | XMS_ITS | Clinical Summary ---
Author Organization [facility] Address [address] [place] [address] Phone Care Team Providers Care Supplier Quality Engineering Manager Name Role Phone Physician, No Pcp Primary Care Provider Unavaila ble Allergies No known active allergies Medications metoclopramide (REGLAN) 10 mg tablet Take 1 tablet (10 mg total) by mouth every 6 (six) hours for 7 days. 28 tablet 03/25/2024 Encounters Date Type Department Care Team Description 03/25/2024 5:52 AM EST - 03/25/2024 12:22 PM EST Emergency [facility] Emergency [address] [place] [address] Guanako Gurrola MD Cauchon, Matthew C, DO Acute nonintractable headache, unspecified headache type (Primary Dx) Discharge Disposition: Home or Self Care from Last 3 Months Surgical History Surgery Date Site/Laterality Comments CHOLECYSTECTOMY 03/21/2021 PROCEDURE: [place] LAPAROSCOPY SURG CHOLECYSTECTOMY; COMMENT: Dr. Kenney Caicedo, [facility] Family History Medical History Relation [...] Sexual Orientation Not on file Obstetrics History Last Filed Vital Signs Vital Sign Reading [...] Mass Index 39.06 03/25/2024 9:51 AM EST Plan of Treatment Health Maintenance Due Date Last Done Comments DTaP,Tdap,and Td Vaccines (6 - Tdap) 01/14/2007 09/18/2000, 05/29/1997, 1996, Additional history exists Cervical Cancer Screening: Pap Smear 01/14/2017 Cholesterol Screening (Lipid Panel) 01/29/2022 Depression Screening 01/29/2022 HIV Screening 01/29/2022 Hepatitis C Screening 01/29/2022 Social Influencers of Health Screening 01/29/2022 COVID-19 Vaccine ( season) 2023 02/08/2021 Influenza Vaccine (#1) 2023 Hepatitis B Vaccines Completed 01/14/1997, 1996, 1996 HIB Vaccines Completed 05/29/1997, 08/26, 1996, Additional history exists IPV Vaccines Completed 09/18/2000, 08/26, 1996, Additional history exists MMR Vaccines Completed 09/18/2000, 02/02/1997 Meningococcal ACWY Vaccine Aged Out 08/07/2008 N o longer eligible based on patient's age to complete this topic HPV Vaccines Completed 10/06/2011, 03/2010, 08/07/2008 Varicella Vaccines Completed 01/18/2015, 09/18/2000 Hepatitis A Vaccines Aged Out No long er eligible based on patient's age to complete this topic Meningococcal B Vacine Aged Out No lo nger eligible based on patient's age to complete this topic Pneumococcal Vaccine: Pediatrics (0 to 5 Years) and At-Risk Patients (6 to 64 Years) Aged Out No longer eligible based on patient's age to complete this topic RSV Immunization Patients Under 20 months Aged Out No longer eligible based on patient's age to complete this topic Procedures Procedure Name Priority Date/Time Associated Diagnosis Comments CT HEAD WO CONTRAST STAT 03/25/2024 1 0:10 AM EST POC , URINE DIAGNOSTIC STAT 03/25/2024 9:59 AM EST LEDEZMA URINE CULTURE TUBE STAT 03/25/2024 9:50 AM EST URINALYSIS WITH REFLEX MICROSCOPIC AND CULTURE STAT 03/25/2024 9:50 AM EST DRUG ABUSE SCREEN 8A PANEL, URINE STAT 03/25/2024 9:50 AM EST URINALYSIS WITH REFLEX MICROSCOPIC AND CULTURE STAT 03/25/2024 9:50 AM EST CBC WITH AUTO DIFFERENTIAL STAT 03/25/2024 7:55 AM EST ETHANOL STAT 03/25/2024 7:55 AM EST CBC AND DIFFERENTIAL STAT 03/25/2024 7:55 AM EST COMPREHENSIVE METABOLIC PANEL STAT 03/25/2024 7:55 AM EST from Last 3 Months Results * CT Head wo Contrast (03/25/2024 10:10 AM EST) Anatomical Region Laterality Modality Head and Neck Computed Tomogra phy 03/25/2024 10:2 0 AM EST Impressions 03/25/2024 10:31 AM EST NO ACUTE INTRACRANIAL ABNORMALITY. -------- FINAL REPORT -------- Dictated By: ZEKE VÁSQUEZ Dictated Date: 03/25/2024 10:20 ET Assigned Physician: ZEKE VÁSQUEZ Reviewed and Electronically Signed By: ZEKE VÁSQUEZ Signed Date: 03/25/2024 10:31 ET Workstation ID: [id number] Transcribed By: Self Edit Transcribed Date: 03/25/2024 [...] hematoma or skull fracture. Procedure Note Zeke Vásquez MD - 03/25/2024 PROCEDURE: HEAD CT INDICATION: [...] -------- FINAL REPORT -------- Dictated By: ZEKE VÁSQUEZ Dictated Date: 03/25/2024 10:20 ET Assigned Physician: ZEKE VÁSQUEZ Reviewed and Electronically Signed By: ZEKE VÁSQUEZ Signed Date: 03/25/2024 10:31 ET Workstation ID: [id number] Transcribed By: Self Edit Transcribed Date: 03/25/2024 10:20 ET [address]NE [address]on CT PROCEDURES Final Resul t * POC , urine manually resulted (03/25/2024 9:59 AM EST) HCG, Ur POC Negative Negative POC hCG Int QC Pass? Yes Yes Urine Urine specimen obtained by clean catch procedure / Unknown 03/25/2024 9:59 AM EST Js C Melia DO POINT OF CARE TEST ENTER/ED IT ORDERABLES Final Result * (ABNORMAL) Urinalysis with reflex microscopic and culture (03/25/2024 9:50 AM EST) Specific [place] Urine 1.026 1.003 - 1.030 LAB URINALYSIS - AUTOMATED METHOD 03/25/2024 11:09 AM [facility] pH, Urine 7.0 5.0 - 8.0 pH LAB URINALYSIS - AUTOMATED METHOD 03/25/2024 11:09 AM [facility] Leukocytes, Urine Negative Negative LAB URINALYSIS - AUTOMATED METHOD 03/25/2024 11:09 AM [facility] Nitrite, Urine Negative Negative LAB URINALYSIS - AUTOMATED METHOD 03/25/2024 11:09 AM [facility] Protein, Urine Trace <=Trace mg/dL LAB URINALYSIS - AUTOMATED METHOD 03/25/2024 11:09 AM [facility] Glucose, Urine Negative Negative mg/dL LAB URINALYSIS - AUTOMATED METHOD 03/25/2024 11:09 AM [facility] Ketones, Urine 40(A) Negative mg/dL LAB URINALYSIS - AUTOMATED METHOD 03/25/2024 11:09 AM [facility] Urobilinogen, Urine 1.0 0.2 - 1.0 mg/dL LAB URINALYSIS - AUTOMATED METHOD 03/25/2024 11:09 AM [facility] Bilirubin, Urine Negative Negative LAB URINALYSIS - AUTOMATED METHOD 03/25/2024 11:09 AM [facility] Blood, Urine Negative Negative LAB URINALYSIS - AUTOMATED METHOD 03/25/2024 11:09 AM [facility] Urine Urine specimen obtained by clean catch procedure / Unknown Non-blood Collection / Unknown 03/25/2024 9:50 AM EST 03/25/2024 11:03 AM EST us Guanako Gurrola MD LAB URINE ORDERABLES Final Resu lt Performing Organization Address [facility]/ZIP Co de Phone Number [facility] [address] [place] [address], [place] [phone] * Ledezma urine culture tube (03/25/2024 9:50 AM EST) Extra Tube Hold for add-ons. 03/26/2024 9:01 AM EST [facility] Comment:Auto resulted. Urine Urine specimen obtained by clean catch procedure / Unknown Non-blood Collection / Unknown 03/25/2024 9:50 AM EST 03/26/2024 7:09 AM EST us Guanako Gurrola MD LAB URINE ORDERABLES Final Resu lt Performing Organization Address City/[facility]/ZIP Co de Phone Number [facility] [address] [place] [address], [place] [phone] * Drug abuse screen 8a panel, urine (03/25/2024 9:50 AM EST) Amphetamine Screen, Ur Negative Negative LAB CHEMISTRY METHOD 03/25/2024 11:34 AM EST [facility] Comment:Certain OTC medicati ons containing ephedrine, phenylephrine, pseudoephedrine and phenylpropanolamine can cause false positive results. Barbiturate Screen, Ur Negative Negative LAB CHEMISTRY METHOD 03/25/2024 11:34 AM EST [facility] Benzodiazepine Screen, Ur Negative Negative LAB CHEMISTRY METHOD 03/25/2024 11:34 AM EST [facility] Cocaine Screen, Ur Negative Negative LAB CHEMISTRY METHOD 03/25/2024 11:34 AM [facility] Opiate Screen, Ur Negative Negative LAB CHEMISTRY METHOD 03/25/2024 11:34 AM [facility] Cannabinoid (THC) Screen, Ur Negative Negative LAB CHEMISTRY METHOD 03/25/2024 11:34 AM EST [facility] Comment:Specimens from patie nts taking pantoprazole sodium (Protonix) have been shown to produce false positive results. Oxycodone Screen, Ur Negative Negative LAB CHEMISTRY METHOD 03/25/2024 11:34 AM EST [facility] Fentanyl, Ur Negative Negative LAB CHEMISTRY METHOD 03/25/2024 11:34 AM EST [facility] Urine Urine specimen obtained by clean catch procedure / Unknown Non-blood Collection / Unknown 03/25/2024 9:50 AM EST 03/25/2024 11:03 AM EST [facility] - 03/25/2024 11:34 AM EST Assay [...] MD LAB URINE ORDERABLES Final Resu lt [facility]) [facility] [address] [place] [address], * (ABNORMAL) CBC auto differential (03/25/2024 7:55 AM EST) WBC 11.7(H) 4.8 - 10.8 K/[facility] LAB HEMETOLOGY METHOD 03/25/2024 8:04 AM EST [facility] RBC 4.30 3.80 - 4.80 M/mcL LAB HEMETOLOGY METHOD 03/25/2024 8:04 AM [facility] Hemoglobin 11.1(L) 11.5 - 16.0 g/dL LAB HEMETOLOGY METHOD 03/25/2024 8:04 AM [facility] Hematocrit 35.5 35.0 - 47.0 % LAB HEMETOLOGY METHOD 03/25/2024 8:04 AM [facility] MCV 83.3 79.0 - 98.0 FL LAB HEMETOLOGY METHOD 03/25/2024 8:04 AM [facility] MCH 26.1(L) 27.0 - 32.0 pcg LAB HEMETOLOGY METHOD 03/25/2024 8:04 AM [facility] MCHC 31.3(L) 32.0 - 37.0 g/dL LAB HEMETOLOGY METHOD 03/25/2024 8:04 AM [facility] RDW 14.1 11.0 - 15.0 % LAB HEMETOLOGY METHOD 03/25/2024 8:04 AM [facility] Platelets 382 130 - 400 K/mcL LAB HEMETOLOGY METHOD 03/25/2024 8:04 AM [facility] MPV 9.3 7.0 - 11.0 FL LAB HEMETOLOGY METHOD 03/25/2024 8:04 AM [facility] NRBC 0.0 <1.0 % LAB HEMETOLOGY METHOD 03/25/2024 8:04 AM [facility] NRBC Absolute 0.00 <0.10 K/mcL LAB HEMETOLOGY METHOD 03/25/2024 8:04 AM [facility] Neutrophils Relative 69.7 % LAB HEMETOLOGY METHOD 03/25/2024 8:04 AM [facility] Lymphocytes Relative 22.5 % LAB HEMETOLOGY METHOD 03/25/2024 8:04 AM EST [facility] Monocytes Relative 6.0 % LAB HEMETOLOGY METHOD 03/25/2024 8:04 AM [facility] Eosinophils Relative 0.9 % LAB HEMETOLOGY METHOD 03/25/2024 8:04 AM [facility] Basophils Relative 0.5 % LAB HEMETOLOGY METHOD 03/25/2024 8:04 AM [facility] Immature Granulocytes Relative 0.4 % LAB HEMETOLOGY METHOD 03/25/2024 8:04 AM [facility] Neutrophils Absolute 8.15(H) 1.50 - 7.00 K/mcL LAB HEMETOLOGY METHOD 03/25/2024 8:04 AM [facility] Lymphocytes Absolute 2.64 1.00 - 5.00 K/mcL LAB HEMETOLOGY METHOD 03/25/2024 8:04 AM [facility] Monocytes Absolute 0.70 0.20 - 1.00 K/mcL LAB HEMETOLOGY METHOD 03/25/2024 8:04 AM [facility] Eosinophils Absolute 0.11 0.00 - 0.50 K/mcL LAB HEMETOLOGY METHOD 03/25/2024 8:04 AM [facility] Basophils Absolute 0.06 0.00 - 0.20 K/mcL LAB HEMETOLOGY METHOD 03/25/2024 8:04 AM [facility] Immature Granulocytes Absolute 0.05(H) 0.00 - 0.03 K/mcL LAB HEMETOLOGY METHOD 03/25/2024 8:04 AM [facility] Blood Venous blood specimen / Unknown Venipuncture / Unknown 03/25/2024 7:55 AM EST 03/25/2024 7:55 AM EST us Guanako Gurrola MD LAB BLOOD ORDERABLES Final Resu lt [facility] [address] [place] [address], [place] [phone] * Ethanol (03/25/2024 7:55 AM EST) Pathologist [facility] Ethanol Level <3 0 - 10 mg/dL LAB CHEMISTRY METHOD 03/25/2024 8:45 AM [facility] Blood Venous blood specimen / Unknown Venipuncture / Unknown 03/25/2024 7:55 AM EST 03/25/2024 7:55 AM EST Guanako Gurrola MD LAB BLOOD ORDERABLES Final Resu lt [facility] [address] [place] [address], [place] [phone] * (ABNORMAL) Comprehensive Metabolic Panel (CMP) (03/25/2024 7:55 AM EST) [facility] Sodium 137 133 - 145 mmol/L LAB CHEMISTRY METHOD 03/25/2024 8:29 AM [facility] Potassium 4.1 3.5 - 5.5 mmol/L LAB CHEMISTRY METHOD 03/25/2024 8:29 AM [facility] Chloride 104 96 - 110 mmol/L LAB CHEMISTRY METHOD 03/25/2024 8:29 AM [facility] CO2 25 21 - 32 mmol/L LAB CHEMISTRY METHOD 03/25/2024 8:29 AM [facility] Anion Gap 8 3 - 11 LAB CHEMISTRY METHOD 03/25/2024 8:29 AM [facility] Glucose 103(H) 70 - 100 mg/dL LAB CHEMISTRY METHOD 03/25/2024 8:29 AM [facility] BUN 11 5 - 25 mg/dL LAB CHEMISTRY METHOD 03/25/2024 8:29 AM [facility] Creatinine 0.76 0.50 - 1.10 mg/dL LAB CHEMISTRY METHOD 03/25/2024 8:29 AM [facility] eGFR 110 >=60 mL/min/1. 73m2 LAB CHEMISTRY METHOD 03/25/2024 8:29 AM [facility] Comment:Calculation based on the??Chronic Kidney Disease Epidemiology Collaboration (CKD-EPI) equation refit??without adjustment for race. BUN/Creatinine Ratio 14.5 LAB CHEMISTRY METHOD 03/25/2024 8:29 AM [facility] Calcium 9.2 8.5 - 10.5 mg/dL LAB CHEMISTRY METHOD 03/25/2024 8:29 AM [facility] AST (SGOT) 21 10 - 42 unit/L LAB CHEMISTRY METHOD 03/25/2024 8:29 AM [facility] ALT (SGPT) 57 10 - 60 unit/L LAB CHEMISTRY METHOD 03/25/2024 8:29 AM [facility] Alkaline Phosphatase 93 42 - 121 unit/L LAB CHEMISTRY METHOD 03/25/2024 8:29 AM [facility] Total Protein 7.6 6.0 - 8.0 g/dL LAB CHEMISTRY METHOD 03/25/2024 8:29 AM [facility] Albumin 3.7 3.2 - 5.0 g/dL LAB CHEMISTRY METHOD 03/25/2024 8:29 AM [facility] Total Bilirubin 0.3 0.0 - 1.4 mg/dL LAB CHEMISTRY METHOD 03/25/2024 8:29 AM [facility] Blood Venous blood specimen / Unknown Venipuncture / Unknown 03/25/2024 7:55 AM EST 03/25/2024 7:55 AM EST us Guanako Gurrola MD LAB BLOOD ORDERABLES Final Resu lt [facility] [address] [place] [address], [place] [phone] from Last 3 Months Insurance [facility] [employer] Care Teams Supplier Quality Engineering Manager Relationship Specialty Start Date End Date Physician, No Pcp PCP - General 03/25/24
== END 2024-04-16 11:16 | disposition home or self-care (01) ==
LOC: HO.HBST 10:16
PROVIDERS: Visit Provider Counselor Mental Health
DX: Z72.4 Inappropriate diet and eating habits (principal); F43.20 Adjustment disorder, unspecified
CPT/HCPCS: 90791

== ENCOUNTER → 2024-04-16 10:16 | Outpatient (BNVA) | payer OTHER, SELFPAY | PROVIDERS: Visit Provider Counselor Mental Health ==

== ENCOUNTER 2024-04-29 08:58 | Outpatient (REF) | payer OTHER, SELFPAY ==
--- NOTE | ~2024-04-29 | US_ITS ---
EXAMINATION: US COMPLETE ABDOMEN WITH LIVER ELASTOGRAPHY CLINICAL INFORMATION: Moderate to severe obesity due to excess calories COMPARISON: None available. TECHNIQUE: Real-time imaging of the abdominal viscera. Noninvasive ultrasound liver fibrosis assessment is performed using Rachid ElastPQ point quantification shear wave elastography (pSWE) with a C5-2 MHz transducer. Multiple elastography samples are obtained. FINDINGS: PANCREAS: The visualized pancreatic head and body are normal in appearance. The remainder of the pancreas is obscured from visualization by the overlying bowel gas. ABDOMINAL AORTA: No aortic aneurysm is seen. INFERIOR VENA CAVA: Visualized portions are normal. LIVER: The liver demonstrates normal size, contour and diffuse increased echogenicity. No focal lesion or intrahepatic biliary duct dilatation. The right lobe measures 14.8 cm in length. The left lobe measures 9.2 cm in length. Portal flow is hepatopedal Shear wave liver elastography median stiffness is 1.69 m/s (reference: normal median stiffness is 1.3 m/s or less). IQR/median stiffness to assess sampling precision is 0.07 (reference: good quality data set is IQR/median stiffness of 0.15 or less). GALLBLADDER: The gallbladder is physiologically distended without evidence of stones, sludge, polyps, wall thickening or pericholecystic fluid. COMMON BILE DUCT: Normal in caliber measuring 0.4 cm in diameter. RIGHT KIDNEY: No hydronephrosis. No renal calculi or focal parenchymal lesions. The kidney measures 9.9 cm in maximum dimension. LEFT KIDNEY: No hydronephrosis. No renal calculi or focal parenchymal lesions. The kidney measures 10.0 cm in maximum dimension. SPLEEN: Unremarkable. The spleen measures 9.7 cm in maximum dimension. FREE FLUID: None seen. US/US abdomen comp w elastography IMPRESSION: 1. There is increased liver echogenicity without any focal lesion. Rest of the abdominal ultrasound is unremarkable. 2. Liver elastography: Median liver stiffness 1.69 m/s corresponds to cACLD. REFERENCE: Society of Radiologists in Ultrasound Liver Stiffness Thresholds (2020): LIVER STIFFNESS THRESHOLDS: *Liver Stiffness equal or less than 1.3 m/s: High probability of being normal. *Liver Stiffness less than 1.7 m/s: In the absence of other known clinical signs, rules out compensated advanced chronic liver disease. *Liver Stiffness 1.7-2.1 m/s: Suggestive of compensated advanced chronic liver disease but need further test for confirmation. *Liver Stiffness over 2.1 m/s: Rules in compensated advanced chronic liver disease. *Liver Stiffness over 2.4 m/s: Suggestive of clinically significant portal hypertension. QUALITY OF DATA SET: *IQR/Median value equal or less than 0.15 implies a quality data set. *IQR/Median value over 0.15 implies a poor quality data set. SIGNIFICANT CHANGE FROM PRIOR EXAM: Significant change if liver stiffness measurement is 10% or greater from prior exam. OTHER CONSIDERATIONS: The stage of liver fibrosis may be overestimated in the setting of acute hepatitis, liver inflammation, elevated liver function tests, hepatic vascular congestion, obstructive cholestasis, non-fasting state, and infiltrative diseases such as amyloidosis and lymphoma. In some patients with NAFLD, the liver stiffness thresholds for compensated advanced chronic liver disease may be lower. In causes other than viral hepatitis and NAFLD, liver stiffness thresholds are not well established. Electronically signed by: Marcial Devi MD 04/30/2024 08:43 AM [facility] [place]
--- OUTSIDE RECORDS SUMMARY | 2024-04-29 09:45 | XMS_ITS | Clinical Summary ---
Author Organization [address] Address [address] [place] [address] Phone Care Team Providers Care Supervisor Shaving And Splitting Name Role Phone Unavailable Primary Care Provider [...] Edward Relation to Subscriber:Self Name:Ivelisse Edward Payer ID:[id number] Group ID:Not on file Type:Not on file Address: [place] [phone] [employer]CIAL [employer]IC [employer]IC
--- OUTSIDE RECORDS SUMMARY | 2024-04-29 09:45 | XMS_ITS | Clinical Summary ---
Author Organization [facility] Address [address] [place] [address] Phone Care Team Providers Care Blind Lacer Name Role Phone Physician, No Pcp Primary Care Provider Unavaila ble Allergies No known active allergies Medications metoclopramide (REGLAN) 10 mg tablet Take 1 tablet (10 mg total) by mouth every 6 (six) hours for 7 days. 28 tablet 03/25/2024 Encounters Date Type Department Care Team Description 03/25/2024 5:52 AM EST - 03/25/2024 12:[address] [facility] Emergency [address] [place] [address] Guanako Gurrola MD Cauchon, Matthew C, DO Acute nonintractable headache, unspecified headache type (Primary Dx) Discharge Disposition: Home or Self Care from Last 3 Months Surgical History Surgery Date Site/Laterality Comments CHOLECYSTECTOMY 03/21/2021 PROCEDURE: [place] LAPAROSCOPY SURG CHOLECYSTECTOMY; COMMENT: Dr. Kenney Caicedo, [facility] Family History Medical History Relation Name Comments [...] Signed Date: 03/25/2024 10:31 ET Workstation ID: [id number] Transcribed By: Self Edit Transcribed Date: 03/25/2024 [...] Signed Date: 03/25/2024 10:31 ET Workstation ID: [id number] Transcribed By: Self Edit Transcribed Date: 03/25/2024 [...] and culture (03/25/2024 9:50 AM EST) Specific [place] Urine 1.026 1.003 - 1.030 LAB URINALYSIS - AUTOMATED METHOD 03/25/2024 11:09 AM [facility] pH, Urine 7.0 5.0 - 8.0 pH LAB URINALYSIS - AUTOMATED METHOD 03/25/2024 11:09 AM [facility] Leukocytes, Urine Negative Negative LAB URINALYSIS - AUTOMATED METHOD 03/25/2024 11:09 AM [facility] Nitrite, Urine Negative Negative LAB URINALYSIS - AUTOMATED METHOD 03/25/2024 11:09 AM [facility] Protein, Urine Trace <=Trace mg/dL LAB URINALYSIS - AUTOMATED METHOD 03/25/2024 11:09 AM [facility] Glucose, Urine Negative Negative mg/dL LAB URINALYSIS - AUTOMATED METHOD 03/25/2024 11:09 AM [facility] Ketones, Urine 40(A) Negative mg/dL LAB URINALYSIS - AUTOMATED METHOD 03/25/2024 11:09 AM [facility] Urobilinogen, Urine 1.0 0.2 - 1.0 mg/dL LAB URINALYSIS - AUTOMATED METHOD 03/25/2024 11:09 AM [facility] Bilirubin, Urine Negative Negative LAB URINALYSIS - AUTOMATED METHOD 03/25/2024 11:09 AM [facility] Blood, Urine Negative Negative LAB URINALYSIS - AUTOMATED METHOD 03/25/2024 11:09 AM [facility] Urine Urine specimen obtained by clean catch procedure / Unknown Non-blood Collection / Unknown 03/25/2024 9:50 AM EST 03/25/2024 11:03 AM EST us Guanako Gurrola MD LAB URINE ORDERABLES Final Resu lt Performing Organization Address [facility]/ZIP Co de Phone Number [facility] [address] [place] [address], [place] [phone] * Ledezma urine culture tube (03/25/2024 9:50 AM EST) Extra Tube Hold for add-ons. 03/26/2024 9:01 AM EST [facility] Comment:Auto resulted. Urine Urine specimen obtained by clean catch procedure / Unknown Non-blood Collection / Unknown 03/25/2024 9:50 AM EST 03/26/2024 7:09 AM EST us Guanako Gurrola MD LAB URINE ORDERABLES Final Resu lt Performing Organization Address City/[facility]/ZIP Co de Phone Number [facility] [address] [place] [address], [place] [phone] * Drug abuse screen 8a panel, urine (03/25/2024 9:50 AM EST) Amphetamine Screen, Ur Negative Negative LAB CHEMISTRY METHOD 03/25/2024 11:34 AM EST [facility] Comment:Certain OTC medicati ons containing ephedrine, phenylephrine, pseudoephedrine and phenylpropanolamine can cause false positive results. Barbiturate Screen, Ur Negative Negative LAB CHEMISTRY METHOD 03/25/2024 11:34 AM EST [facility] Benzodiazepine Screen, Ur Negative Negative LAB CHEMISTRY METHOD 03/25/2024 11:34 AM EST [facility] Cocaine Screen, Ur Negative Negative LAB CHEMISTRY METHOD 03/25/2024 11:34 AM [facility] Opiate Screen, Ur Negative Negative LAB CHEMISTRY METHOD 03/25/2024 11:34 AM [facility] Cannabinoid (THC) Screen, Ur Negative Negative LAB CHEMISTRY METHOD 03/25/2024 11:34 AM EST [facility] Comment:Specimens from patie nts taking pantoprazole sodium (Protonix) have been shown to produce false positive results. Oxycodone Screen, Ur Negative Negative LAB CHEMISTRY METHOD 03/25/2024 11:34 AM EST [facility] Fentanyl, Ur Negative Negative LAB CHEMISTRY METHOD 03/25/2024 11:34 AM EST [facility] Urine Urine specimen obtained by clean catch procedure / Unknown Non-blood Collection / Unknown 03/25/2024 9:50 AM EST 03/25/2024 11:03 AM EST [facility] - 03/25/2024 11:34 AM EST Assay [...] LAB URINE ORDERABLES Final Resu lt [facility]) [facility] [address] [place] [address], * (ABNORMAL) CBC auto differential (03/25/2024 7:55 AM EST) WBC 11.7(H) 4.8 - 10.8 K/[facility] LAB HEMETOLOGY METHOD 03/25/2024 8:04 AM EST [facility] RBC 4.30 3.80 - 4.80 M/mcL LAB HEMETOLOGY METHOD 03/25/2024 8:04 AM [facility] Hemoglobin 11.1(L) 11.5 - 16.0 g/dL LAB HEMETOLOGY METHOD 03/25/2024 8:04 AM [facility] Hematocrit 35.5 35.0 - 47.0 % LAB HEMETOLOGY METHOD 03/25/2024 8:04 AM [facility] MCV 83.3 79.0 - 98.0 FL LAB HEMETOLOGY METHOD 03/25/2024 8:04 AM [facility] MCH 26.1(L) 27.0 - 32.0 pcg LAB HEMETOLOGY METHOD 03/25/2024 8:04 AM [facility] MCHC 31.3(L) 32.0 - 37.0 g/dL LAB HEMETOLOGY METHOD 03/25/2024 8:04 AM [facility] RDW 14.1 11.0 - 15.0 % LAB HEMETOLOGY METHOD 03/25/2024 8:04 AM [facility] Platelets 382 130 - 400 K/mcL LAB HEMETOLOGY METHOD 03/25/2024 8:04 AM [facility] MPV 9.3 7.0 - 11.0 FL LAB HEMETOLOGY METHOD 03/25/2024 8:04 AM [facility] NRBC 0.0 <1.0 % LAB HEMETOLOGY METHOD 03/25/2024 8:04 AM [facility] NRBC Absolute 0.00 <0.10 K/mcL LAB HEMETOLOGY METHOD 03/25/2024 8:04 AM [facility] Neutrophils Relative 69.7 % LAB HEMETOLOGY METHOD 03/25/2024 8:04 AM [facility] Lymphocytes Relative 22.5 % LAB HEMETOLOGY METHOD 03/25/2024 8:04 AM EST [facility] Monocytes Relative 6.0 % LAB HEMETOLOGY METHOD 03/25/2024 8:04 AM [facility] Eosinophils Relative 0.9 % LAB HEMETOLOGY METHOD 03/25/2024 8:04 AM [facility] Basophils Relative 0.5 % LAB HEMETOLOGY METHOD 03/25/2024 8:04 AM [facility] Immature Granulocytes Relative 0.4 % LAB HEMETOLOGY METHOD 03/25/2024 8:04 AM [facility] Neutrophils Absolute 8.15(H) 1.50 - 7.00 K/mcL LAB HEMETOLOGY METHOD 03/25/2024 8:04 AM [facility] Lymphocytes Absolute 2.64 1.00 - 5.00 K/mcL LAB HEMETOLOGY METHOD 03/25/2024 8:04 AM [facility] Monocytes Absolute 0.70 0.20 - 1.00 K/mcL LAB HEMETOLOGY METHOD 03/25/2024 8:04 AM [facility] Eosinophils Absolute 0.11 0.00 - 0.50 K/mcL LAB HEMETOLOGY METHOD 03/25/2024 8:04 AM [facility] Basophils Absolute 0.06 0.00 - 0.20 K/mcL LAB HEMETOLOGY METHOD 03/25/2024 8:04 AM [facility] Immature Granulocytes Absolute 0.05(H) 0.00 - 0.03 K/mcL LAB HEMETOLOGY METHOD 03/25/2024 8:04 AM [facility] Blood Venous blood specimen / Unknown Venipuncture / Unknown 03/25/2024 7:55 AM EST 03/25/2024 7:55 AM EST us Guanako Gurrola MD LAB BLOOD ORDERABLES Final Resu lt [facility] [address] [place] [address], [place] [phone] * Ethanol (03/25/2024 7:55 AM EST) Pathologist [facility] Ethanol Level <3 0 - 10 mg/dL LAB CHEMISTRY METHOD 03/25/2024 8:45 AM [facility] Blood Venous blood specimen / Unknown Venipuncture / Unknown 03/25/2024 7:55 AM EST 03/25/2024 7:55 AM EST Guanako Gurrola MD LAB BLOOD ORDERABLES Final Resu lt [facility] [address] [place] [address], [place] [phone] * (ABNORMAL) Comprehensive Metabolic Panel (CMP) (03/25/2024 7:55 AM EST) [facility] Sodium 137 133 - 145 mmol/L LAB CHEMISTRY METHOD 03/25/2024 8:29 AM [facility] Potassium 4.1 3.5 - 5.5 mmol/L LAB CHEMISTRY METHOD 03/25/2024 8:29 AM [facility] Chloride 104 96 - 110 mmol/L LAB CHEMISTRY METHOD 03/25/2024 8:29 AM [facility] CO2 25 21 - 32 mmol/L LAB CHEMISTRY METHOD 03/25/2024 8:29 AM [facility] Anion Gap 8 3 - 11 LAB CHEMISTRY METHOD 03/25/2024 8:29 AM [facility] Glucose 103(H) 70 - 100 mg/dL LAB CHEMISTRY METHOD 03/25/2024 8:29 AM [facility] BUN 11 5 - 25 mg/dL LAB CHEMISTRY METHOD 03/25/2024 8:29 AM [facility] Creatinine 0.76 0.50 - 1.10 mg/dL LAB CHEMISTRY METHOD 03/25/2024 8:29 AM [facility] eGFR 110 >=60 mL/min/1. 73m2 LAB CHEMISTRY METHOD 03/25/2024 8:29 AM [facility] Comment:Calculation based on the??Chronic Kidney Disease Epidemiology Collaboration (CKD-EPI) equation refit??without adjustment for race. BUN/Creatinine Ratio 14.5 LAB CHEMISTRY METHOD 03/25/2024 8:29 AM [facility] Calcium 9.2 8.5 - 10.5 mg/dL LAB CHEMISTRY METHOD 03/25/2024 8:29 AM [facility] AST (SGOT) 21 10 - 42 unit/L LAB CHEMISTRY METHOD 03/25/2024 8:29 AM [facility] ALT (SGPT) 57 10 - 60 unit/L LAB CHEMISTRY METHOD 03/25/2024 8:29 AM [facility] Alkaline Phosphatase 93 42 - 121 unit/L LAB CHEMISTRY METHOD 03/25/2024 8:29 AM [facility] Total Protein 7.6 6.0 - 8.0 g/dL LAB CHEMISTRY METHOD 03/25/2024 8:29 AM [facility] Albumin 3.7 3.2 - 5.0 g/dL LAB CHEMISTRY METHOD 03/25/2024 8:29 AM [facility] Total Bilirubin 0.3 0.0 - 1.4 mg/dL LAB CHEMISTRY METHOD 03/25/2024 8:29 AM [facility] Blood Venous blood specimen / Unknown Venipuncture / Unknown 03/25/2024 7:55 AM EST 03/25/2024 7:55 AM EST us Guanako Gurrola MD LAB BLOOD ORDERABLES Final Resu lt [facility] [address] [place] [address], [place] [phone] from Last 3 Months Insurance [facility] [employer] Care Teams Blind Lacer Relationship Specialty Start Date End Date Physician, No Pcp PCP - General 03/25/24
== END 2024-04-29 08:59 | disposition home or self-care (01) ==
LOC: HO.US 08:58
PROVIDERS: Visit Provider Surgery
DX: E66.01 Morbid (severe) obesity due to excess calories (principal); K21.9 Gastro-esophageal reflux disease without esophagitis; R03.0 Elevated blood-pressure reading, without diagnosis of hypertension
CPT/HCPCS: 76700; 76981

== ENCOUNTER → 2024-04-29 09:01 | Outpatient (BNV) | payer OTHER, SELFPAY | PROVIDERS: Visit Provider Radiology Diagnostic Radiology | DX: E66.01 Morbid (severe) obesity due to excess calories (principal) | CPT/HCPCS: 76700 ==

== ENCOUNTER 2024-04-29 09:46 | Day surgery (SDC) | payer OTHER, SELFPAY ==
--- NOTE | 2024-04-07 10:10 | P.CONAN_ITS ---
Documented by User: Gladis Reeves NP 04/23/24 13:43 HPI - Anesthesia Eval Consult details Narrative: 29yo F for Upper Endoscopy, 04/29/24 PMFSH Active Problems Active Problems: All Active Problems Vitamin D deficiency (Acute) GERD (gastroesophageal reflux disease) (Acute) Morbid obesity (Acute) control counseling (Acute) Women's annual routine gynecological examination (Acute) Anemia (Acute) Borderline high blood pressure (Acute) BCP ( control pills) initiation (Acute) Screen for sexually transmitted diseases (Acute) Obesity, morbid, BMI 40.0-49.9 (Acute) Encounter for gynecological examination with Papanicolaou smear of cervix (Acute) Cervical cancer screening (Acute) Irregular menstrual cycle (Acute) Complete (Acute) First trimester bleeding (Acute) Abnormal uterine bleeding (Acute) Missed (Acute) Threatened (Acute) Obesity (BMI 35.0-39.9 without comorbidity) (Acute) Past Medical History Medical History GERD (gastroesophageal reflux disease) Morbid obesity Missed Threatened Obesity (BMI 35.0-39.9 without comorbidity) Family History Family History Mother No problems noted. Father No problems noted. Surgical History Surgical History Hx of cholecystectomy Social History Social History Are you a primary long term care pharmacist to a significant other at home: No Do you presently have visiting nurse or other home services: No Alcohol intake: never Patient Tobacco Use Status: Never used Tobacco Gender identity: Female Meds Allergies Allergy/AdvReac Type Severity Reaction Status Date / Time No Known Allergies Allergy Verified 04/29/24 13:47 Home Medications ?Medication ?Instructions ?Recorded ?Confirmed ?Last Taken ?Type vitamin PO 03/21/24 03/24/24 Unknown History Assessment and Plan Assessment Anesthesia Assessment: Chart Reviewed Documented by User: Mery Quinn MD 04/29/24 14:41 PMF Past Medical History Medical History GERD (gastroesophageal reflux disease) Morbid obesity Missed Threatened Obesity (BMI 35.0-39.9 without comorbidity) Family History Family History Mother No problems noted. Father No problems noted. Surgical History Surgical History Hx of cholecystectomy History of Problems with Anesthesia: No Social History Social History Are you a primary long term care pharmacist to a significant other at home: No Do you presently have visiting nurse or other home services: No Alcohol intake: never Patient Tobacco Use Status: Never used Tobacco Gender identity: Female Meds Allergies Allergy/AdvReac Type Severity Reaction Status Date / Time No Known Allergies Allergy Verified 04/29/24 13:47 Home Medications ?Medication ?Instructions ?Recorded ?Confirmed ?Last Taken ?Type vitamin PO 03/21/24 03/24/24 Unknown History Exam Airway Mallampati Class: III TM Dist: >3cm Neck ROM: Full Loose/Missing/Broken Teeth: No Heart: RRR Lungs: CTA Assessment and Plan Assessment Anesthesia Assessment: Anesthesia Plan Discussed Final Anesthetic Review History of Problems with Anesthesia: No NPO: Yes ASA Class: III Final Preanesthetic Review: Meds/Allgs Chart Reviewed, Consent Obtained/Reviewed and Anes Risks/Benef Reviewed Patient Risk: Intermediate Procedure Risk: Intermediate Anesthetic Plan Anesthetic Plan: MAC: Disposition: Standard PACU
[2024-04-25 14:29] VITALS: BMI 45.3
--- NOTE | 2024-04-29 13:46 | MHC.SHP ---
Pre-Procedural Eval Section A - 24 Hr Update-Section A only Date of Service: 04/29/24 The patient is an INPATIENT: No The patient has been examined within 24 hours of the surgical procedure. The History & Physical has been completed within 30 days and I have reviewed it.: Yes Section B - Complete if H&P > 30 days Chief Complaint: Morbid (severe) obesity due to excess calories Details of Present Illness: GERD Relevant Family History (Specify if Yes): No Relevant Social History: None Present Medications: None Medical History: No relevant PMH History of Previous Operations: No relevant previous surgery Allergies: Allergies Allergy/AdvReac Type Severity Reaction Status Date / Time No Known Allergies Allergy Verified 03/24/24 09:58 Review of Systems Sugical H&P ROS: Negative: Constitution, Cardiovascular, Respiratory, Neurological, Psychiatric, Hem-Onc, Allergic/Immunologic, Gastrointestinal, Genitourinary, Musculoskeletal, Integumentary, Endocrine and Eyes/Ears/Nose/Throat Exam Surgical H&P Exam: Normal: HEENT, Normal: Heart, Normal: Lungs, Normal: Extremities, Normal: Abdomen, Normal: Skin and Normal: Neurological Plan Diagnosis/Plan: Unchanged (EGD to assess etiology of GERD. Risks of bleeding and perforation were discussed with the patient and she is in agreement with the plan.) I have reviewed the history and physical and performed a pertinent physical examination on my patient. No changes have occurred unless specified. Time Spent With Patient Time: Total time managing care of this patient today ____ minutes.
[2024-04-29 13:47] VITALS: BMI 43.2
[2024-04-29 13:52] VITALS: BP 139/76; PULSE 103; RESP 16; TEMP 36.3; O2SAT 96
[2024-04-29 13:52] LABS: UPreg QC Valid YES; Urine Pregnancy NEGATIVE (NEGATIVE)
[2024-04-29] MEDS: Lactated Ringers 1,000 ML 80 ML IVCONT (14:10)
--- NOTE | 2024-04-29 14:11 | PM.OP ---
Brief Operative Note Date of Service: 04/29/24 Pre-op diagnosis: GERD Post-op diagnosis: same Procedure: PROCEDURE DATE: 04/29/2024 PREOPERATIVE DIAGNOSIS: GERD POSTOPERATIVE DIAGNOSIS: ?Same as above. 1) Normal endoscopy PROCEDURE: [id number] with biopsies Surgeon: John Dior M.D.. Ph.D. Rehabilitation Case Coordinator: None ? Anesthesia: IV sedation Estimated blood loss: ?Minimal FINDINGS AND PROCEDURE: ? OPERATIVE INDICATIONS: ?The patient is a 29 year old female known to me who is interested in bariatric surgery. The patient has GERD. Based on this information I recommended an upper endoscopy to evaluate the patient's symptoms. Risks and complications of the surgery were discussed with the patient in advance particularly the possibility of perforation or bleeding that may require surgical intervention. The patient understood the risks and was in agreement with the plan. ? PROCEDURE: After informed consent was obtained by the patient, the patient was ?transferred to the Operating Room and was placed in the supine position.? After successful induction of IV sedation, a mouth block was inserted and the patient was placed in the left lateral decubitus position. An upper endoscopy was performed next, the oropharynx and esophagus appeared within the normal limits. There was no hiatal hernia. The z-line was smooth. Two biopsies were obtained from the distal esophagus 2-3 cm proximal to the GE junction and two additional biopsies from the GE junction. The stomach was entered and it appeared to be of normal size. There was no gastritis. There was no stricture or ulcer. A biopsy was obtained from the gastric fundus and the antrum. No significant bleeding was noted from any of the biopsy sites. Retroflexion of the scope confirmed a normal GE junction. The scope was then advanced into the duodenum which appeared to be normal as well. At that point the duodenum ?and the stomach were decompressed and the scope was withdrawn from the patient's mouth. The patient extubated and was transferred in stable condition to the Recovery Room for further care. I was present and performed all steps of the procedure. There were no residents to assist with this case. Bam Dior M.D., Ph.D. Surgeon: Shad Dior MD Anesthesia: MAC Was an Rehabilitation Case Coordinator used for this Procedure?: No Estimated blood loss (mL): 0 IV fluids (mL): 400 Urine output (mL): 0 (No Méndez to record output) Pathology: other (1) antrum x1, 2) fundus x1, 3) GE junction x2, 4) distal esophagus x2) Condition: stable Disposition: PACU
[2024-04-29 14:48] VITALS: BP 113/55; PULSE 86; RESP 18; TEMP 36.1; O2SAT 98
[2024-04-29 15:02] VITALS: BP 120/63; PULSE 77; RESP 18; TEMP 36.1; O2SAT 98
== END 2024-04-29 15:45 | disposition home or self-care (01) ==
PROVIDERS: Nurse Practitioner; Visit Provider Surgery
PROC: 0DJ08ZZ Inspection of Upper Intestinal Tract, Via Natural or Artificial Opening Endoscopic (ICD-10-PCS; CPT 43235; principal; 2024-04-29 14:30)
DX: K21.9 Gastro-esophageal reflux disease without esophagitis (principal); E66.01 Morbid (severe) obesity due to excess calories; Z68.42 Body mass index [BMI] 45.0-49.9, adult; R03.0 Elevated blood-pressure reading, without diagnosis of hypertension; Z79.899 Other long term (current) drug therapy; Z90.49 Acquired absence of other specified parts of digestive tract
CPT/HCPCS: 43239; 81025; 88305; 88313; 88342; J2003; J2250; J2704

== ENCOUNTER → 2024-04-29 09:46 | Outpatient (BNV) | payer OTHER, SELFPAY | PROVIDERS: Visit Provider Surgery | DX: K21.9 Gastro-esophageal reflux disease without esophagitis (principal) | CPT/HCPCS: 43239 ==

== ENCOUNTER 2024-04-30 10:15 | Outpatient (AMB) | payer OTHER, SELFPAY ==
--- NOTE | 2024-04-30 10:05 | MHC.WMTHER ---
Intake Intake Visit Reasons: VIDEO F/U Allergies No Known Allergies Allergy (Verified 04/29/24 13:47) [facility] Medical History GERD (gastroesophageal reflux disease) Morbid obesity Missed Threatened Obesity (BMI 35.0-39.9 without comorbidity) Surgical History Hx of cholecystectomy Family History Mother No problems noted. Father No problems noted. Social History Are you a primary personal care aide to a significant other at home: No Do you presently have visiting nurse or other home services: No Alcohol intake: never Patient Tobacco Use Status: Never used Tobacco Gender identity: Female Female Reproductive History Menstrual Age of Menarche: 13 Behavioral Health Assessment Weight Management Therapy Therapy Notes Details The patient is a 29-year-old female presenting for a second visit to complete the behavioral health () assessment as part of the surgical weight loss program. She reports learning about the program through a friend, as she has struggled with weight loss for several years. The patient denies any history of mental health treatment or past hospitalizations/crises related to behavioral health. She also denies any current or past safety concerns regarding suicidal ideation, self-harm, or harm to others, and there is no reported history of substance use. Additionally, there is no evidence of stress or emotional eating, and scores from the BES suggest a low risk for binge eating behavior. The PHQ-9 scores indicate no active symptoms or concerns related to depression. The mental status exam is within normal limits, suggesting that the patient's functioning is not impaired. At this time, the patient is cleared from a behavioral health standpoint. Presenting Concerns Referral Source WMP-Provider. PT has initial visit with Dr Roland on 03/24/2024. Reason for referral Completion of behavioral health assessment as part of process for weight-loss surgery. Precipitating Event Obesity. Living Situation Current Living Situation Rent At risk of losing current housing? No Satisfied with current living situation? Yes Comments PT lives with her and their dog. Food/Weight/Diet Expectations of change The initial goal is to lose 10% of her weight before surgery, which is about 23 lbs. The Ultimate weight goal is 209lbs before surgery. PT started the program at 232 Lbs, and her most recent weight as of 04/11/2024 is 225 lbs. Weight on 04/28/2024: 221Lbs. PT's target weight is 130 lbs. PT is implementing the following: Current meal plan: Combination of shakes, bars, and one meal (7F/7F) Exercise plan: Treadmill at home. been doing 4-5 days at week. History/Relationship with food PT reports she likes fried foods and bread. PT reports at times she used food as a comfort after either a good/bad day or week. On the other hand, most of her family-related activities are food-related or involves food, Like eating out. With her family, their gatherings also include foods. Example of meals before starting the program: Breakfast: @10-11am - Eggs with bread, pancakes. Skipped several days at week. Lunch: Skipped if had breakfast that day. @2pm. Ham and cheese [place] w/ and egg letters and tomatoes, and keane w/ fruit on the side and juice. Dinner: her Heavy meal, rice, chicken or pasta w/ garlic bread, fried chicken, lasagna and a juice. Snacks: multiple at day, usually after lunch and after dinner. Her choices were: cookies, candy, brownies, chocolate. Drinks/Liquids: Does about 3 glasses of juice a day, 2 cups of coffee a day with sugar and creamer. No soda and/or tea. Water: 3-4 bottles of water. History/Relationship with weight PT doesn't remember ever being at her heathy or around 120 lbs as an adult. And she was overweight as a child. PT reports after having 2 miscarriages' 3-4 years ago, and she has noticed a weight gain, as this was a very sad period and she turned to food for comfort. In the last 10 years, the patient's Lowest weight was 170 lbs. and highest 237Lbs. PT wants to be at least at 134Lbs. History/Relationship with dieting Exercising, Fasting with only 1 meal a day. Binge Eating Do you frequently eat large amounts of food in short periods of time, not feeling physically hungry? No Do you feel out of control when you eat a large amount of food in a short period of time? No Do you eat large amounts of food rapidly and typically alone? No Night Eating Do you wake up at least once during the night to eat? No If you wake up in the night, do you find that it is necessary to eat something in order to fall back asleep? No Do you have little or no appetite in the morning and feel very hungry in the evening, often overeating between dinner and when you go to bed? Yes Social History Family history and relationship PT is . No children. PT reports she had a good childhood, she has 1 brother and a sister. Parents are alive. 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 Developmental history and status None. Currently [facility]. Social support Parents, brother and her 2 best friends. Community support None Adventist/Spirituality None. Cultural/Ethnic information . Parents born in [place]. She was born in [place], been in [place] since childhood. Legal Involvement and History Current or historical involvement with the legal system? None Education Highest grade completed HS. Preferred learning style Auditory and Visual Currently enrolled in educational program? No Interested in further educational program? 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 No Meaningful activities reading, mall/shopping. Financial Situation Describe current financial situation Comfortable Financial assistance? None Service Service? No Mental Health and Addiction Treatment Current/Past substance abuse? No Comments Alcohol: None Cigarettes/Tobacco: None Cannabis/Edibles: None Current/Past addictive behavior concerns? No Psychiatric history PT reports she has never been in MH treatment of any type. PT denies ever being in crisis or inpatient for mental health. There is no history and/or current concern about SI/SA and self-harm or other harm. Medical and Physical Health Summary Additional Medical History not covered in history None reported Sexual History concerns 2 misscarriages in the past. Physical exam in the last year? No Pain Screening Current pain? No Pain in the last few months? No Medications Is the patient compliant with medications? Yes Does the patient have Castillo Guardian in place? Not applicable Does the patient use complimentary health approaches? No Trauma/Abuse History History of trauma? No Questionnaires PHQ-9 Over the last 2 weeks, how often have you been bothered by any of the following problems? 1. Little interest or pleasure in doing things: not at all 2. Feeling down, depressed, or hopeless: not at all 3. Trouble falling or staying asleep, or sleeping too much: several days (Falling asleep due to work schedule.) 4. Feeling tired or having little energy: not at all 5. Poor appetite or overeating: not at all 6. Feeling bad about yourself - or that you are a failure or have let yourself or your family down: not at all 7. Trouble concentrating on things, such as reading the newspaper or watching television: not at all 8. Moving or speaking so slowly that other people could have noticed. Or the opposite - being so fidgety or restless that you have been moving around a lot more than usual: not at all 9. Thoughts that you would be better off or of hurting yourself in some way: not at all Total score: 1 Depression Screening Interpretation: Negative Depression Screening Done: Yes 85991 - PHQ-9 Billing: Yes Source: Developed by Drs. Yonatan Yancey, Ania Rosa, Raza Roberts and colleagues, with an educational ana from [employer]. Binge Eating Scale Group 1 A. I don't feel self-conscious about my wt. or body size when I'm with others. B. I feel concerned about how I look to others, but it normally does not make me fell disappointed with myself C. I do get self-conscious about my appearance and wt. which makes me feel disappointed in myself. D. I feel very self-conscious about my wt. and frequently I feel intense shame and disgust for myself. I try to avoid social contacts because of my self-consciousness. Response Group 1: C Group 2 A. I don't have any difficulty eating slowly in the proper manner. B. Although I seem to gobble down foods, I don't end up feeling stuffed because of eating to much. C. At times, I tend to eat quickly and then, I feel uncomfortably full afterwards. D. I have the habit of bolting down my food, without really chewing it. When this happens I usually feel uncomfortably stuffed because I've eaten to much. Response Group 2: C Group 3 A. I feel capable to control my eating urges when I want to. B. I feel like I have failed to control my eating more than the average person. C. I feel utterly helpless when it comes to feeling in control of my eating urges. D. Because I feel so helpless about controlling my eating I have become very desperate about trying to get control. Response Group 3: B Group 4 A. I don't have the habit of eating when I'm bored. B. I sometimes eat when I'm bored, but often I'm able to get busy and get my mind off food. C. I have a regular habit of eating when I'm bored, but occasionally, I can use some other activity to get my mind off eating. D. I have a strong habit of eating when I'm bored. Nothing seems to help me breath the habit. Response Group 4: A Group 5 A. I'm usually physically hungry when I eat something. B. Occasionally, I eat something on impulse even though I really am not hungry. C. I have the regular habit of eating foods, that I might not really enjoy, to satisfy a hungry feeling even though physically, I don't need the food. D. Although I'm not physically hungry, I get a hungry feeling in my mouth that only seems to be satisfied when I eat a food, like sandwich, that fills my mouth. Sometimes, when I eat the food to satisfy my mouth hunger, I then spit the food out so I won't gain weight. Response Group 5: A Group 6 A. I don't feel any guilt or self-hate after I overeat. B. After I overeat, occasionally I feel guilt or self-hate. C. Almost all the time I experience strong guilt or self-hate after I overeat. Response Group 6: B Group 7 A. I don't lose total control of my eating when dieting even after periods when I overeat. B. Sometimes when I eat a forbidden food on a diet, I feel like I blew it and eat even more. C. Frequently, I have the habit of saying to myself, I've blown it now, why not go all the way, when I overeat on a diet. When that happens I eat more. D. I have a regular habit of starting a strict diets for myself but I break the diets by going on an eating binge. My life seems to be either a feast or famine. Response Group 7: D Group 8 A. I rarely eat so much food that I feel uncomfortably stuffed afterwards. B. Usually about once a month, I each such a quantity of food, I end up feeling very stuffed. C. I have regular periods during the month when I eat large amounts of food, either at mealtime or at snacks. D. I eat so much food that I regularly feel quite uncomfortable after eating and sometimes a bit nauseous. Response Group 8: A Group 9 A. My level of calorie intake does not go up very high or go down very low on a regular basis. B. Sometimes after I overeat, I will try to reduce my caloric intake to almost nothing to compensate for the excess calories I've eaten. C. I have a regular habit of overeating during the night. It seems that my routine is not to be hungry in the morning but overeat in the evening. D. In my adult years, I have had week-long periods where I practically starve myself. This follows periods when I overeat. It seems I live a life of either feast or famine. Response Group 9: C Group 10 A. I usually am able to stop eating when I want to. I know when enough is enough. B. Every so often, I experience a compulsion to eat which I can't seem to control. C. Frequently, I experience strong urges to eat which I seem unable to control, but at other times I can control my eating urges. D. I feel incapable of controlling urges to eat. I have a fear of not being able to stop eating voluntarily. Response Group 10: A Group 11 A. I don't have any problem stopping eating when I feel full. B. I usually can stop eating when I feel full but occasionally overeat leaving me feeling uncomfortably stuffed. C. I have a problem stopping eating once I start and usually I feel uncomfortably stuffed after I eat a meal. D. Because I have a problem not being able to stop eating when I want, I sometimes have to induce vomiting to relieve my stuffed feeling. Response Group 11: B Group 12 A. I seem to eat just as much when I'm with others, Family social gatherings as when I'm by myself. B. Sometimes, when I'm with other persons, I don't eat as much as I want to eat because I'm self-conscious about my eating. C. Frequently, I eat only a small amount of food when others are present, because I'm very embarrassed about my eating. D. I feel so ashamed about overeating that I pick times to overeat when I know no one will see me. I feel like a closet eater. Response Group 12: B Group 13 A. I eat three meals a day with only an occasional between meal snack. B. I eat 3 meals a day, but I also normally snack between meals. C. When I am snacking heavily, I get in the habit of skipping regular meals. D. There are regular periods when I seem to be continually eating, with no planned meals. Response Group 13: C Group 14 A. I don't think much about trying to control unwanted eating urges. B. At least some of the time, I feel my thoughts are pre-occupied with trying to control my eating urges. C. I feel that frequently I spend much time thinking about how much I ate or about trying not to eat anymore. D. It seems to me that most of my waking hours are pre-occupied by thoughts about eating or not eating. I feel like I'm constantly struggling not to eat. Response Group 14: C Group 15 A. I don't think about food a great deal. B. I have strong craving for food but they last only for brief periods of time. C. I have days when I can't seem to think about anything else but food. D. Most of my days seem to be pre-occupied with thoughts about food. I feel like I live to eat. Response Group 15: C Group 16 A. I usually know whether or not I'm physically hungry. I take the right portion of food to satisfy me. B. Occasionally, I feel uncertain about knowing whether or not I'm physically hungry. A these times it's hard to know how much food I should take to satisfy me. C. Even though I might know how many calories I should eat, I don't have any idea what is a normal amount of food for me. Response Group 16: B Binge Eating Score: 20 Score less than 17 Minimal Risk Score between 18-26 Moderate Risk Score between 27-46 High Risk Assessment & Plan Assessment & Plan (1) Inappropriate diet and eating habits: Code(s): Z72.4 - Inappropriate diet and eating habits (2) Adjustment disorder, unspecified: Code(s): F43.20 - Adjustment disorder, unspecified Plan The patient has been cleared from a behavioral health standpoint and is scheduled to return for follow-up 1-3 weeks post-operatively for ongoing support. Next appointment: 1-3 weeks post-op. Telehealth Telehealth Telehealth Platform: [facility] Location of provider rendering services: other Location of patient: address on file Patient Identification confirmed using: Name, : Yes Telehealth method: voice only Patient verbally consented to treatment: Yes Patient verbally consented to billing insurance company: Yes Patient informed of any privacy concerns related to visit: Yes Minutes spent on Phone/Video with Pt.: 60 Coding Level of Care Code Established Pt Tele Psytx >53 mins ([id number]) Patient Type Established Diagnoses Inappropriate diet and eating habits Z72.4 Adjustment disorder, unspecified F43.20 Additional Codes PHQ-9 - 00899 - PHQ-9 Billing: Yes ([id number]) Time Spent (min) 60
--- OUTSIDE RECORDS SUMMARY | 2024-04-30 12:06 | XMS_ITS | Clinical Summary ---
Author Organization [facility] Address [address] [place] [address] Phone Care Team Providers Care Health Care Marketing Manager Name Role Phone Physician, No Pcp [...] [facility] Emergency [address] [place] [address] Guanako Gurrola MD Cauchon, Matthew C, DO Acute nonintractable headache, unspecified headache type (Primary Dx) Discharge Disposition: Home or Self Care from Last 3 Months Surgical History Surgery Date Site/Laterality Comments CHOLECYSTECTOMY 03/21/2021 PROCEDURE: NE LAPAROSCOPY SURG CHOLECYSTECTOMY; COMMENT: Dr. Kenney Caicedo, [...] Signed Date: 03/25/2024 10:31 ET Workstation ID: [id number] Transcribed By: Self Edit Transcribed Date: 03/25/2024 [...] Signed Date: 03/25/2024 10:31 ET Workstation ID: [id number] Transcribed By: Self Edit Transcribed Date: 03/25/2024 [...] and culture (03/25/2024 9:50 AM EST) Specific [place] Urine 1.026 1.003 - 1.030 LAB URINALYSIS - AUTOMATED METHOD 03/25/2024 11:09 AM [facility] pH, Urine 7.0 5.0 - 8.0 pH LAB URINALYSIS - AUTOMATED METHOD 03/25/2024 11:09 AM [facility] Leukocytes, Urine Negative Negative LAB URINALYSIS - AUTOMATED METHOD 03/25/2024 11:09 AM [facility] Nitrite, Urine Negative Negative LAB URINALYSIS - AUTOMATED METHOD 03/25/2024 11:09 AM [facility] Protein, Urine Trace <=Trace mg/dL LAB URINALYSIS - AUTOMATED METHOD 03/25/2024 11:09 AM [facility] Glucose, Urine Negative Negative mg/dL LAB URINALYSIS - AUTOMATED METHOD 03/25/2024 11:09 AM [facility] Ketones, Urine 40(A) Negative mg/dL LAB URINALYSIS - AUTOMATED METHOD 03/25/2024 11:09 AM [facility] Urobilinogen, Urine 1.0 0.2 - 1.0 mg/dL LAB URINALYSIS - AUTOMATED METHOD 03/25/2024 11:09 AM [facility] Bilirubin, Urine Negative Negative LAB URINALYSIS - AUTOMATED METHOD 03/25/2024 11:09 AM [facility] Blood, Urine Negative Negative LAB URINALYSIS - AUTOMATED METHOD 03/25/2024 11:09 AM [facility] Urine Urine specimen obtained by clean catch procedure / Unknown Non-blood Collection / Unknown 03/25/2024 9:50 AM EST 03/25/2024 11:03 AM EST us Guanako Gurrola MD LAB URINE ORDERABLES Final Resu lt Performing Organization Address [facility]/ZIP Co de Phone Number [facility] [address] [place] [address], [place] [phone] * L[place] urine culture tube (03/25/2024 9:50 AM EST) Extra Tube Hold for add-ons. 03/26/2024 9:01 AM EST [facility] Comment:Auto resulted. Urine Urine specimen obtained by clean catch procedure / Unknown Non-blood Collection / Unknown 03/25/2024 9:50 AM EST 03/26/2024 7:09 AM EST us Guanako Gurrola MD LAB URINE ORDERABLES Final Resu lt Performing Organization Address City/[facility]/ZIP Co de Phone Number [facility] [address] [place] [address], [place] [phone] * Drug abuse screen 8a panel, urine [...] Negative LAB CHEMISTRY METHOD 03/25/2024 11:34 AM [facility] Opiate Screen, Ur Negative Negative LAB CHEMISTRY METHOD 03/25/2024 11:34 AM [facility] Cannabinoid (THC) Screen, Ur Negative [...] 9:50 AM EST 03/25/2024 11:03 AM EST [facility] - 03/25/2024 11:34 AM EST [...] MD LAB URINE ORDERABLES Final Resu lt [facility] [address] [place] [address], * (ABNORMAL) CBC auto differential (03/25/2024 7:55 AM EST) WBC 11.7(H) 4.8 - 10.8 K/[facility] LAB HEMETOLOGY METHOD 03/25/2024 8:04 AM EST [facility] RBC 4.30 3.80 - 4.80 M/mcL LAB HEMETOLOGY METHOD 03/25/2024 8:04 AM [facility] Hemoglobin 11.1(L) 11.5 - 16.0 g/dL LAB HEMETOLOGY METHOD 03/25/2024 8:04 AM [facility] Hematocrit 35.5 35.0 - 47.0 % LAB HEMETOLOGY METHOD 03/25/2024 8:04 AM [facility] MCV 83.3 79.0 - 98.0 FL LAB HEMETOLOGY METHOD 03/25/2024 8:04 AM [facility] MCH 26.1(L) 27.0 - 32.0 pcg LAB HEMETOLOGY METHOD 03/25/2024 8:04 AM [facility] MCHC 31.3(L) 32.0 - 37.0 g/dL LAB HEMETOLOGY METHOD 03/25/2024 8:04 AM [facility] RDW 14.1 11.0 - 15.0 % LAB HEMETOLOGY METHOD 03/25/2024 8:04 AM [facility] Platelets 382 130 - 400 K/mcL LAB HEMETOLOGY METHOD 03/25/2024 8:04 AM [facility] MPV 9.3 7.0 - 11.0 FL LAB HEMETOLOGY METHOD 03/25/2024 8:04 AM [facility] NRBC 0.0 <1.0 % LAB HEMETOLOGY METHOD 03/25/2024 8:04 AM [facility] NRBC Absolute 0.00 <0.10 K/mcL LAB HEMETOLOGY METHOD 03/25/2024 8:04 AM [facility] Neutrophils Relative 69.7 % LAB HEMETOLOGY METHOD 03/25/2024 8:04 AM [facility] Lymphocytes Relative 22.5 % LAB HEMETOLOGY METHOD 03/25/2024 8:04 AM EST [facility] Monocytes Relative 6.0 % LAB HEMETOLOGY METHOD 03/25/2024 8:04 AM [facility] Eosinophils Relative 0.9 % LAB HEMETOLOGY METHOD 03/25/2024 8:04 AM [facility] Basophils Relative 0.5 % LAB HEMETOLOGY METHOD 03/25/2024 8:04 AM [facility] Immature Granulocytes Relative 0.4 % LAB HEMETOLOGY METHOD 03/25/2024 8:04 AM [facility] Neutrophils Absolute 8.15(H) 1.50 - 7.00 K/mcL LAB HEMETOLOGY METHOD 03/25/2024 8:04 AM [facility] Lymphocytes Absolute 2.64 1.00 - 5.00 K/mcL LAB HEMETOLOGY METHOD 03/25/2024 8:04 AM [facility] Monocytes Absolute 0.70 0.20 - 1.00 K/mcL LAB HEMETOLOGY METHOD 03/25/2024 8:04 AM [facility] Eosinophils Absolute 0.11 0.00 - 0.50 K/mcL LAB HEMETOLOGY METHOD 03/25/2024 8:04 AM [facility] Basophils Absolute 0.06 0.00 - 0.20 K/mcL LAB HEMETOLOGY METHOD 03/25/2024 8:04 AM [facility] Immature Granulocytes Absolute 0.05(H) 0.00 - 0.03 K/mcL LAB HEMETOLOGY METHOD 03/25/2024 8:04 AM [facility] Blood Venous blood specimen / Unknown Venipuncture / Unknown 03/25/2024 7:55 AM EST 03/25/2024 7:55 AM EST us Guanako Gurrola MD LAB BLOOD ORDERABLES Final Resu lt [facility] [address] [place] [address], [place] [phone] * Ethanol (03/25/2024 7:55 AM EST) Pathologist [facility] Ethanol Level <3 0 - 10 mg/dL LAB CHEMISTRY METHOD 03/25/2024 8:45 AM [facility] Blood Venous blood specimen / Unknown Venipuncture / Unknown 03/25/2024 7:55 AM EST 03/25/2024 7:55 AM EST Guanako Gurrola MD LAB BLOOD ORDERABLES Final Resu lt [facility] [address] [place] [address], [place] [phone] * (ABNORMAL) Comprehensive Metabolic Panel (CMP) (03/25/2024 7:55 AM EST) [facility] Sodium 137 133 - 145 mmol/L LAB CHEMISTRY METHOD 03/25/2024 8:29 AM [facility] Potassium 4.1 3.5 - 5.5 mmol/L LAB CHEMISTRY METHOD 03/25/2024 8:29 AM [facility] Chloride 104 96 - 110 mmol/L LAB CHEMISTRY METHOD 03/25/2024 8:29 AM [facility] CO2 25 21 - 32 mmol/L LAB CHEMISTRY METHOD 03/25/2024 8:29 AM [facility] Anion Gap 8 3 - 11 LAB CHEMISTRY METHOD 03/25/2024 8:29 AM [facility] Glucose 103(H) 70 - 100 mg/dL LAB CHEMISTRY METHOD 03/25/2024 8:29 AM [facility] BUN 11 5 - 25 mg/dL LAB CHEMISTRY METHOD 03/25/2024 8:29 AM [facility] Creatinine 0.76 0.50 - 1.10 mg/dL LAB CHEMISTRY METHOD 03/25/2024 8:29 AM [facility] eGFR 110 >=60 mL/min/1. 73m2 LAB CHEMISTRY METHOD 03/25/2024 8:29 AM [facility] Comment:Calculation based on the??Chronic Kidney Disease Epidemiology Collaboration (CKD-EPI) equation refit??without adjustment for race. BUN/Creatinine Ratio 14.5 LAB CHEMISTRY METHOD 03/25/2024 8:29 AM [facility] Calcium 9.2 8.5 - 10.5 mg/dL LAB CHEMISTRY METHOD 03/25/2024 8:29 AM [facility] AST (SGOT) 21 10 - 42 unit/L LAB CHEMISTRY METHOD 03/25/2024 8:29 AM [facility] ALT (SGPT) 57 10 - 60 unit/L LAB CHEMISTRY METHOD 03/25/2024 8:29 AM [facility] Alkaline Phosphatase 93 42 - 121 unit/L LAB CHEMISTRY METHOD 03/25/2024 8:29 AM [facility] Total Protein 7.6 6.0 - 8.0 g/dL LAB CHEMISTRY METHOD 03/25/2024 8:29 AM [facility] Albumin 3.7 3.2 - 5.0 g/dL LAB CHEMISTRY METHOD 03/25/2024 8:29 AM [facility] Total Bilirubin 0.3 0.0 - 1.4 mg/dL LAB CHEMISTRY METHOD 03/25/2024 8:29 AM [facility] Blood Venous blood specimen / Unknown Venipuncture / Unknown 03/25/2024 7:55 AM EST 03/25/2024 7:55 AM EST us Guanako Gurrola MD LAB BLOOD ORDERABLES Final Resu lt [facility] [address] [place] [address], [place] [phone] from Last 3 Months Insurance [facility] [employer] Care Teams Health Care Marketing Manager Relationship Specialty Start Date End Date Physician, No Pcp PCP - General 03/25/24
--- OUTSIDE RECORDS SUMMARY | 2024-04-30 12:06 | XMS_ITS | Clinical Summary ---
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
== END 2024-04-30 11:06 | disposition home or self-care (01) ==
LOC: HO.HBST 10:15
PROVIDERS: Visit Provider Counselor Mental Health
DX: F43.20 Adjustment disorder, unspecified (principal); Z72.4 Inappropriate diet and eating habits
CPT/HCPCS: 90837

== ENCOUNTER → 2024-04-30 10:15 | Outpatient (BNVA) | payer OTHER, SELFPAY | PROVIDERS: Visit Provider Counselor Mental Health ==

== ENCOUNTER 2024-05-28 08:02 | Outpatient (AMB) | payer OTHER, SELFPAY ==
--- OUTSIDE RECORDS SUMMARY | 2024-05-28 08:07 | XMS_ITS | Clinical Summary ---
Author Organization [facility] Address [address] [place] [address] Phone Care Team Providers Care Entry Level Installation Technician Name Role Phone Physician, No Pcp Primary Care Provider Unavaila ble Allergies No known active allergies Encounters Date Type Department Care Team Description 03/25/2024 5:52 AM EST - 03/25/2024 12:22 PM EST Emergency [facility] Emergency [address] [place] [address] Guanako Gurrola MD Cauchon, Matthew C, Acute nonintractable headache, unspecified headache type (Primary Dx) Discharge Disposition: Home or Self Care from Last 3 Months Surgical History Surgery Date Site/Laterality Comments CHOLECYSTECTOMY 03/21/2021 PROCEDURE: [place] LAPAROSCOPY SURG CHOLECYSTECTOMY; COMMENT: Dr. Kenney Caicedo, [facility] Family History Medical History Relation Name [...] Signed Date: 03/25/2024 10:31 ET Workstation ID: [id number] Transcribed By: Self Edit Transcribed Date: 03/25/2024 [...] Signed Date: 03/25/2024 10:31 ET Workstation ID: [id number] Transcribed By: Self Edit Transcribed Date: 03/25/2024 [...] and culture (03/25/2024 9:50 AM EST) Specific [place] Urine 1.026 1.003 - 1.030 LAB URINALYSIS - AUTOMATED METHOD 03/25/2024 11:09 AM [facility] pH, Urine 7.0 5.0 - 8.0 pH LAB URINALYSIS - AUTOMATED METHOD 03/25/2024 11:09 AM [facility] Leukocytes, Urine Negative Negative LAB URINALYSIS - AUTOMATED METHOD 03/25/2024 11:09 AM [facility] Nitrite, Urine Negative Negative LAB URINALYSIS - AUTOMATED METHOD 03/25/2024 11:09 AM [facility] Protein, Urine Trace <=Trace mg/dL LAB URINALYSIS - AUTOMATED METHOD 03/25/2024 11:09 AM [facility] Glucose, Urine Negative Negative mg/dL LAB URINALYSIS - AUTOMATED METHOD 03/25/2024 11:09 AM [facility] Ketones, Urine 40(A) Negative mg/dL LAB URINALYSIS - AUTOMATED METHOD 03/25/2024 11:09 AM [facility] Urobilinogen, Urine 1.0 0.2 - 1.0 mg/dL LAB URINALYSIS - AUTOMATED METHOD 03/25/2024 11:09 AM [facility] Bilirubin, Urine Negative Negative LAB URINALYSIS - AUTOMATED METHOD 03/25/2024 11:09 AM [facility] Blood, Urine Negative Negative LAB URINALYSIS - AUTOMATED METHOD 03/25/2024 11:09 AM [facility] Urine Urine specimen obtained by clean catch procedure / Unknown Non-blood Collection / Unknown 03/25/2024 9:50 AM EST 03/25/2024 11:03 AM EST us Guanako Gurrola MD LAB URINE ORDERABLES Final Resu lt [facility] [address] [place] [address], [place] [phone] * [place] urine culture tube (03/25/2024 9:50 AM EST) Pathologist [facility] Extra Tube Hold for add-ons. 03/26/2024 9:01 AM EST [facility] Comment:Auto resulted. Urine Urine specimen obtained by clean catch procedure / Unknown Non-blood Collection / Unknown 03/25/2024 9:50 AM EST 03/26/2024 7:09 AM EST us Guanako Gurrola MD LAB URINE ORDERABLES Final Resu lt [facility] [address] [place] [address], [place] [phone] * Drug abuse screen 8a panel, urine (03/25/2024 9:50 AM EST) [facility] Amphetamine Screen, Ur Negative Negative LAB CHEMISTRY METHOD 03/25/2024 11:34 AM EST [facility] Comment:Certain OTC medicati ons containing ephedrine, phenylephrine, pseudoephedrine and phenylpropanolamine can cause false positive results. Barbiturate Screen, Ur Negative Negative LAB CHEMISTRY METHOD 03/25/2024 11:34 AM [facility] Benzodiazepine Screen, Ur Negative Negative LAB CHEMISTRY METHOD 03/25/2024 11:34 AM [facility] Cocaine Screen, Ur Negative Negative LAB CHEMISTRY METHOD 03/25/2024 11:34 AM [facility] Opiate Screen, Ur Negative Negative LAB CHEMISTRY METHOD 03/25/2024 11:34 AM [facility] Cannabinoid (THC) Screen, Ur Negative Negative LAB CHEMISTRY METHOD 03/25/2024 11:34 AM [facility] Comment:Specimens from patie nts taking pantoprazole sodium (Protonix) have been shown to produce false positive results. Oxycodone Screen, Ur Negative Negative LAB CHEMISTRY METHOD 03/25/2024 11:34 AM EST [facility] Fentanyl, Ur Negative Negative LAB CHEMISTRY METHOD 03/25/2024 11:34 AM EST [facility] Urine Urine specimen obtained by clean catch procedure / Unknown Non-blood Collection / Unknown 03/25/2024 9:50 AM EST 03/25/2024 11:03 AM EST Narrative [facility] - 03/25/2024 11:34 AM EST Assay cutoffs: Amphetamines ? 1000 ng/mL Barbiturates ?200 ng/mL Benzodiazepines ?? 200 ng/mL Cocaine ? 300 ng/mL Fentanyl ?1 ng/mL Opiates ? 300 ng/mL Oxycodone ? 100 ng/mL THC ?50 ng/mL Semi-quantitative assay for screening purposes only. Unconfirmed screening result should not be used for non-medical purposes. *ALTERNATE METHOD CONFIRMATION DONE UPON REQUEST ONLY* Guanako Gurrola MD LAB URINE ORDERABLES Final Resu lt [facility] [address] [place] [address], * (ABNORMAL) CBC auto differential (03/25/2024 7:55 AM EST) WBC 11.7(H) 4.8 - 10.8 K/[facility] LAB HEMETOLOGY METHOD 03/25/2024 8:04 AM EST [facility] RBC 4.30 3.80 - 4.80 M/[facility] LAB HEMETOLOGY METHOD 03/25/2024 8:04 AM EST [facility] Hemoglobin 11.1(L) 11.5 - 16.0 g/dL LAB HEMETOLOGY METHOD 03/25/2024 8:04 AM [facility] Hematocrit 35.5 35.0 - 47.0 % LAB HEMETOLOGY METHOD 03/25/2024 8:04 AM [facility] MCV 83.3 79.0 - 98.0 FL LAB HEMETOLOGY METHOD 03/25/2024 8:04 AM [facility] MCH 26.1(L) 27.0 - 32.0 pcg LAB HEMETOLOGY METHOD 03/25/2024 8:04 AM [facility] MCHC 31.3(L) 32.0 - 37.0 g/dL LAB HEMETOLOGY METHOD 03/25/2024 8:04 AM [facility] RDW 14.1 11.0 - 15.0 % LAB HEMETOLOGY METHOD 03/25/2024 8:04 AM [facility] Platelets 382 130 - 400 K/mcL LAB HEMETOLOGY METHOD 03/25/2024 8:04 AM [facility] MPV 9.3 7.0 - 11.0 FL LAB HEMETOLOGY METHOD 03/25/2024 8:04 AM [facility] NRBC 0.0 <1.0 % LAB HEMETOLOGY METHOD 03/25/2024 8:04 AM [facility] NRBC Absolute 0.00 <0.10 K/mcL LAB HEMETOLOGY METHOD 03/25/2024 8:04 AM [facility] Neutrophils Relative 69.7 % LAB HEMETOLOGY METHOD 03/25/2024 8:04 AM [facility] Lymphocytes Relative 22.5 % LAB HEMETOLOGY METHOD 03/25/2024 8:04 AM [facility] Monocytes Relative 6.0 % LAB HEMETOLOGY METHOD 03/25/2024 8:04 AM [facility] Eosinophils Relative 0.9 % LAB HEMETOLOGY METHOD 03/25/2024 8:04 AM EST [facility] Basophils Relative 0.5 % LAB HEMETOLOGY METHOD 03/25/2024 8:04 AM EST [facility] Immature Granulocytes Relative 0.4 % LAB HEMETOLOGY METHOD 03/25/2024 8:04 AM EST [facility] Neutrophils Absolute 8.15(H) 1.50 - 7.00 K/mcL LAB HEMETOLOGY METHOD 03/25/2024 8:04 AM EST [facility] Lymphocytes Absolute 2.64 1.00 - 5.00 K/mcL LAB HEMETOLOGY METHOD 03/25/2024 8:04 AM EST [facility] Monocytes Absolute 0.70 0.20 - 1.00 K/mcL LAB HEMETOLOGY METHOD 03/25/2024 8:04 AM [facility] Eosinophils Absolute 0.11 0.00 - 0.50 K/mcL LAB HEMETOLOGY METHOD 03/25/2024 8:04 AM EST [facility] Basophils Absolute 0.06 0.00 - 0.20 K/mcL LAB HEMETOLOGY METHOD 03/25/2024 8:04 AM EST [facility] Immature Granulocytes Absolute 0.05(H) 0.00 - 0.03 K/mcL LAB HEMETOLOGY METHOD 03/25/2024 8:04 AM EST [facility] Blood Venous blood specimen / Unknown Venipuncture / Unknown 03/25/2024 7:55 AM EST 03/25/2024 7:55 AM EST us Guanako Gurrola MD LAB BLOOD ORDERABLES Final Resu lt [facility] [address] [place] [address], * Ethanol (03/25/2024 7:55 AM EST) Ethanol Level <3 0 - 10 mg/dL LAB CHEMISTRY METHOD 03/25/2024 8:45 AM [facility] Blood Venous blood specimen / Unknown Venipuncture / Unknown 03/25/2024 7:55 AM EST 03/25/2024 7:55 AM EST us Guanako Gurrola MD LAB BLOOD ORDERABLES Final Resu lt [facility] [address] [place] [address], [place] [phone] * (ABNORMAL) Comprehensive Metabolic Panel (CMP) (03/25/2024 7:55 AM EST) Sodium 137 133 - 145 mmol/L LAB CHEMISTRY METHOD 03/25/2024 8:29 AM [facility] Potassium 4.1 3.5 - 5.5 mmol/L LAB CHEMISTRY METHOD 03/25/2024 8:29 AM [facility] Chloride 104 96 - 110 mmol/L LAB CHEMISTRY METHOD 03/25/2024 8:29 AM [facility] CO2 25 21 - 32 mmol/L LAB CHEMISTRY METHOD 03/25/2024 8:29 AM [facility] Anion Gap 8 3 - 11 LAB CHEMISTRY METHOD 03/25/2024 8:29 AM [facility] Glucose 103(H) 70 - 100 mg/dL LAB CHEMISTRY METHOD 03/25/2024 8:29 AM [facility] BUN 11 5 - 25 mg/dL LAB CHEMISTRY METHOD 03/25/2024 8:29 AM [facility] Creatinine 0.76 0.50 - 1.10 mg/dL LAB CHEMISTRY METHOD 03/25/2024 8:29 AM [facility] eGFR 110 >=60 mL/min/1. 73m2 LAB CHEMISTRY METHOD 03/25/2024 8:29 AM [facility] Comment:Calculation based on the??Chronic Kidney Disease Epidemiology Collaboration (CKD-EPI) equation refit??without adjustment for race. BUN/Creatinine Ratio 14.5 LAB CHEMISTRY METHOD 03/25/2024 8:29 AM [facility] Calcium 9.2 8.5 - 10.5 mg/dL LAB CHEMISTRY METHOD 03/25/2024 8:29 AM [facility] AST (SGOT) 21 10 - 42 unit/L LAB CHEMISTRY METHOD 03/25/2024 8:29 AM [facility] ALT (SGPT) 57 10 - 60 unit/L LAB CHEMISTRY METHOD 03/25/2024 8:29 AM [facility] Alkaline Phosphatase 93 42 - 121 unit/L LAB CHEMISTRY METHOD 03/25/2024 8:29 AM [facility] Total Protein 7.6 6.0 - 8.0 g/dL LAB CHEMISTRY METHOD 03/25/2024 8:29 AM [facility] Albumin 3.7 3.2 - 5.0 g/dL LAB CHEMISTRY METHOD 03/25/2024 8:29 AM [facility] Total Bilirubin 0.3 0.0 - 1.4 mg/dL LAB CHEMISTRY METHOD 03/25/2024 8:29 AM [facility] Blood Venous blood specimen / Unknown Venipuncture / Unknown 03/25/2024 7:55 AM EST 03/25/2024 7:55 AM EST us Guanako Gurrola MD LAB BLOOD ORDERABLES Final Resu lt [facility] [address] [place] [address], from Last 3 Months Insurance [facility] [employer] Care Teams Entry Level Installation Technician Relationship Specialty Start Date End Date Physician, No Pcp PCP - General 03/25/24
--- OUTSIDE RECORDS SUMMARY | 2024-05-28 08:07 | XMS_ITS | Clinical Summary ---
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 Phone Unavailable Primary Care Provider [...] Covid-19 vaccine series (2023- season) 2023 RSV Immunization (1 - 1-dose 75+ series) 01/14/2071 Meningococcal Vaccine Aged Out 08/07/2008 No adia dorian eligible based on patient's age to complete this topic Pneumococcal Vaccine (2 - 49 years) Aged Out No longer eligible based on patient's age to complete this topic Insurance [employer] Member Subscriber Plan / Payer (Ef fective 2022-) Name:Ivelisse Edward Relation to Subscriber:Self Name:Ivelisse Edward Payer ID:[id number] Group ID:Not on file Type:Not on file Address: [place] [phone] COMMERCIAL GENERIC COMMERCIAL GENERIC
--- NOTE | 2024-05-28 10:43 | A.OFFVIS_ITS ---
VS Expanded 05/28/24 10:48 Height 5 ft Weight 211 lb 6 oz BMI 41.3 Body Fat % 53.2 Body Fat Mass 112.5 Fat Free Mass 98.8 Visceral Fat Rating 23 Body Water % 32 Body Water Mass 67.7 Basal Metabolic Rate/Score 1,138 Intake Visit Reasons: TV Pre Op LSG 06/05/24 Allergies No Known Allergies Allergy (Verified 05/28/24 10:43) Medication List - Last Reconciled 05/28/24 by Shad Dior MD cholecalciferol (vitamin D3) 125 mcg PO DAILY ferrous sulfate 324 mg PO DAILY ondansetron 4 mg PO Q12H pantoprazole 40 mg PO DAILY polyethylene glycol 3350 17 grams PO DAILY [ vitamin PO] sucralfate 10 mL PO BID thiamine HCl (vitamin B1) 100 mg PO DAILY vitamin A palmitate 10,000 units PO DAILY HPI HPI TV Pre Op LSG 06/05/24: Details: Start time: 10am End time: 10.30am I spent 25 minutes talking to the patient and 5 minutes to prepare my note for a total of 30 minutes. HPI Comments Details: Overall weight loss: 21.2lbs or 9.11% TBWL Is doing 2 Celebrate Rebuild protein shakes (1/2 scoop in coconut milk), 2.5 Celebrate protein bars and one meal (7 forks of protein and 7 forks of salad ) Exercise: doing treadmill 5 days per week for 300 calories [facility] Medical History GERD (gastroesophageal reflux disease) Morbid obesity Missed Threatened Obesity (BMI 35.0-39.9 without comorbidity) Surgical History Hx of cholecystectomy Family History Mother No problems noted. Father No problems noted. Social History Are you a primary physician assistant primary care to a significant other at home: No Do you presently have visiting nurse or other home services: No Alcohol intake: never Patient Tobacco Use Status: Never used Tobacco Gender identity: Female Female Reproductive History Menstrual Age of Menarche: 13 Physical Exam Vital Signs: BMI result Body Mass Index 41.3 Telehealth Telehealth Telehealth Platform: Telephone Location of provider rendering services: practice address Location of patient: address on file Patient Identification confirmed using: Name, : Yes Telehealth method: voice only Patient verbally consented to treatment: Yes Patient verbally consented to billing insurance company: Yes Patient informed of any privacy concerns related to visit: Yes Minutes spent on Phone/Video with Pt.: 30 Assessment & Plan Assessment & Plan (1) Morbid obesity: Code(s): E66.01 - Morbid (severe) obesity due to excess calories Category: Medical Plan: 1. Plan for lap sleeve gastrectomy including upper GI endoscopy. All tests has been completed and reviewed and the patient is cleared for the surgery. ?If diaphragmatic or ventral hernias are present at time of surgery, these will be repaired laparoscopically as well. Risks and complications were discussed in detail including possible conversion to an open procedure, anastomotic leak, bleeding requiring transfusion, small bowel obstruction, , DVT and pulmonary embolism, cardiac, or pulmonary complications, as nursing home complications such as anastomotic ulcer, insufficient weight loss and vitamin deficiencies. I emphasized the importance of close follow-up, adherence to instructions and good communication. So far she has proven to be an excellent communicator and very compliant with all our directions accomplishing a great weight loss. I believe that she is an excellent candidate and she is ready. 2. Preop prescriptions were provided and explained the purpose of each one. Need to be purchased preop. Start Pantoprazole now as you get it from the pharmacy, 1 pill per day. Sucralfate and Zofran are for after surgery as needed. 3. Bowel prep: please do 7 packets ?of Miralax mixing each one with a an 8oz glass of water, crystal light, gatorade zero, or propel ?on 06/03/24 and the same amount on 06/04/24. The Miralax you begin with one packet at a time in 8oz water or crystal light, gatorade zero, or propel ?as early in the day as you can and you do them back to back until you finish them. Continue the protein shakes during ?the bowel prep. 4. Needs to purchase 1oz medicine cups . 5. Needs to purchase Children's liquid Tylenol for postop pain control. 6. Avoid aspirin, motrin, Advil, Aleve, Meloxicam, Excedrin, Ibuprofen, Naproxyn. Tylenol is OK. 7. She needs to purchase the Celebrate multivitamins from the hospital's gift shop. 8. Will do basic preop blood work-up on 05/29/24 fasting for 12 hours and is scheduled to see the Anesthesiologist prior to the day of surgery. 9. Importance of adherence to postop folllow-up and recommendations was underscored and she understands that. 10. Stop food and bars as of tomorrow 05/29/2024 and create an aggressive meal plan with the [employer] and send me a screenshot of the plan you will create. You need to creat two meal plans, one for the days you work overnight and one for the days you sleep regular hours. 11. No soups, broths or V8 12. The patient's?medical?history has been reviewed and they are considered low risk for post op DVT and therefore DVT prophylaxis is not considered necessary. Travel after surgery was reviewed. The patient has not disclosed any travel plans during the first 30 days after surgery and they have been advised that within the first 30 days after surgery any bus, plane, train or car travel over 2 hours in duration is contraindicated due to the possibility of developing blood clots from immobility. Any travel, needs to include periods of ambulation of 10 minutes in duration every 2 hours.? Patient was instructed to discuss any plans for travel during this period with their bariatric surgeon.? 13. Please take at the day of surgery the following medications: NONE 14. Stop any control pills and don't use them for one month after surgery 15. Absolutely no smoking or vaping, or marijuana until the surgery and for at least the first 4 weeks. Only nicotine patches are allowed. 16. Send me weight measurements on Sunday06/03/24, and then on Sunday06/05/24, the day of surgery before you go to the hospital. 17. Avoid any steroids by mouth for any reason. Let me know if someone prescribes them to you 18. These instructions supersede anything else you read in the handbook, anything you watched in videos or classes or you were told by any other provider. If there is any conflict, you follow the above instructions and no thing else. Orders: Orders TSH reflex Free T4 Today E66.01 - Morbid (severe) obesity due to excess calories Prothrombin Time INR Today E66.01 - Morbid (severe) obesity due to excess calories Hemoglobin A1c Today E66.01 - Morbid (severe) obesity due to excess calories Partial Thromboplastin Time Today E66.01 - Morbid (severe) obesity due to excess calories C Reactive Protein Today E66.01 - Morbid (severe) obesity due to excess calories Comprehensive Met. Panel Today E66.01 - Morbid (severe) obesity due to excess calories Lipid Panel Today E66.01 - Morbid (severe) obesity due to excess calories Type and Screen Today E66.01 - Morbid (severe) obesity due to excess calories Complete Blood Count Auto Diff Today E66.01 - Morbid (severe) obesity due to excess calories Insulin Today E66.01 - Morbid (severe) obesity due to excess calories Medications: New pantoprazole 40 mg PO DAILY 90 tabs 0RF K21.9 - Gastro-esophageal reflux disease without esophagitis sucralfate 10 mL PO BID 600 mL 2RF K21.9 - Gastro-esophageal reflux disease without esophagitis ondansetron Only take one every 12 hours as needed if you have nausea 4 mg PO Q12H 20 tabs 0RF nausea and vomiting R11.0 - Nausea polyethylene glycol 3350 Mix each measuring cup with 8oz of water, Crystal light, or Gatorade zero, or Propel and do 7 measuring cups on 06/03/24 and another 7 measuring cups on 06/04/24 17 grams PO DAILY 238 grams 0RF Z01.818 - Encounter for other preprocedural examination
[2024-05-28 10:48] VITALS: BMI 41.3
== END 2024-05-28 16:11 | disposition home or self-care (01) ==
LOC: HO.HBS 08:02
PROVIDERS: Visit Provider Surgery
DX: E66.813 Obesity, class 3 (principal); Z68.41 Body mass index [BMI] 40.0-44.9, adult
CPT/HCPCS: 99499

== ENCOUNTER → 2024-05-28 08:02 | Outpatient (BNVA) | payer OTHER, SELFPAY | PROVIDERS: Visit Provider Surgery ==

== ENCOUNTER 2024-06-05 11:04 | Inpatient (IN) | payer OTHER, SELFPAY ==
[2024-05-29 14:19] LABS: MANUAL DIFF FLAG NO
[2024-05-29 15:29] LABS: INTERNATIONAL NORM RATIO 1.1 (0.9-1.1); Prothrombin Time 12.3 SEC (10.9-12.4)
[2024-05-29 15:30] LABS: Basophils Absolute Auto 0.1 X10*3/uL (0.0-0.2); Basophils Percent Auto 0.6 % (0-2); Eosinophils Absolute Auto 0.2 X10*3/uL (0.0-0.4); Eosinophils Percent Auto 3.1 % (0-4); Estimated Average Glucose 97 mg/dL; Hematocrit 36.5 % (37.0-47.0); Hemoglobin 11.3 g/dl (12.0-16.0); Hemoglobin A1C 94.1842 umol/L; Imm Gran Abs Auto 0.03 X10*3/uL (0.00-0.03); Imm Gran Pct Auto 0.4 % (0.0-0.4); Lymphocytes Absolute Auto 2.2 X10*3/uL (1.2-4.9); Lymphocytes Percent Auto 27.9 % (20-40); Mean Corpuscular Hemoglobin 26.2 pg (27.0-33.0); Mean Corpuscular Volume 84.5 fL (80.0-98.0); Mean Platelet Volume 9.6 fL (9.4-12.3); Monocytes Absolute Auto 0.7 X10*3/uL (0.1-1.2); Monocytes Percent Auto 8.8 % (2-11); Neutrophils Absolute Auto 4.7 x10*3/uL (2.0-8.3); Neutrophils Percent Auto 59.2 % (45-73); Platelet Count 359 X10*3/uL (160-400); Red Blood Count 4.32 X10*6/uL (4.20-5.50); Red Cell Distribution Width 13.7 % (11.0-16.0); White Blood Count 7.9 X10*3/uL (4.8-10.8)
[2024-05-29 15:32] LABS: Partial Thromboplastin Time 39.1 SEC (26.0-36.8)
[2024-05-29 16:01] LABS: Alanine Aminotransferase 77 U/L (0-31); Anion Gap 11 (12-20); Aspartate Amino Transferase 31 U/L (5-31); Bilirubin Total 0.6 mg/dL (0.0-1.0); Blood Urea Nitrogen 15 mg/dL (9-16); C Reactive Protein 1.71 mg/dL (< or = 0.50); Calcium 9.6 mg/dL (8.4-10.2); Carbon Dioxide 27 mmol/L (22-29); Chloride 106 mmol/L (96-108); Cholesterol 103 mg/dL (<200); Estimated Glomerular Filt Rate > 60; Glucose Random 75 mg/dL (60-115); HDL Cholesterol 34 mg/dL (>40); LDL Cholesterol Calculated 51 mg/dL (<100); Potassium 4.3 mmol/L (3.3-5.1); Sodium 140 mmol/L (135-145); Total Protein 7.5 g/dL (6.5-8.0); Triglycerides 90 mg/dL (<150)
[2024-05-29 16:14] LABS: Alkaline Phosphatase 97 U/L (39-117)
[2024-05-29 16:26] LABS: Insulin 13 uU/mL (2-29); TSH reflex Free T4 0.86 uIU/mL (0.32-4.0)
[2024-06-02 10:19] VITALS: BMI 40.0
--- NOTE | 2024-06-03 12:26 | HO.ANESPROP2 ---
Documented by User: Gladis Reeves NP 06/03/24 12:26 HPI - Anesthesia Eval Consult details Narrative: 29yo F for Gastrectomy Sleeve,EGD,possibel Diaphragmatic Hernia,possible Ventral Hernia,possible Open PMFSH Active Problems Active Problems: All Active Problems Vitamin B1 deficiency (Acute) Vitamin A deficiency (Acute) Vitamin D deficiency (Acute) control counseling (Acute) Women's annual routine gynecological examination (Acute) Anemia (Acute) Borderline high blood pressure (Acute) BCP ( control pills) initiation (Acute) Screen for sexually transmitted diseases (Acute) Obesity, morbid, BMI 40.0-49.9 (Acute) Encounter for gynecological examination with Papanicolaou smear of cervix (Acute) Cervical cancer screening (Acute) Irregular menstrual cycle (Acute) Complete (Acute) First trimester bleeding (Acute) Abnormal uterine bleeding (Acute) GERD (gastroesophageal reflux disease) (Acute) Morbid obesity (Acute) Missed (Acute) Threatened (Acute) Obesity (BMI 35.0-39.9 without comorbidity) (Acute) Past Medical History Medical History GERD (gastroesophageal reflux disease) Morbid obesity Missed Threatened Obesity (BMI 35.0-39.9 without comorbidity) Family History Family History Mother No problems noted. Father No problems noted. Surgical History Surgical History Hx of cholecystectomy History of Problems with Anesthesia: No Social History Social History Housing Other:: 2nd floor of 2 family house Are you a primary health care sanitary technician to a significant other at home: No Do you presently have visiting nurse or other home services: No Alcohol intake: never Patient Tobacco Use Status: Never used Tobacco Use of substances other than those prescribed or required for medical reasons: No Have you been hit, kicked, punched, or otherwise hurt by someone within the past year? If so, by whom?: No Spiritual Healthcare Practices: none Faith Healthcare Practices: none Cultural Healthcare Practices: none Are you DNR?: No Advance Directives: No Advance Directives Information Provided: No Advance Directives on File: No Patient : No FDLMP: 05/29/24 : No Poor oral hygiene: No Gender identity: Female Meds Allergies Allergy/AdvReac Type Severity Reaction Status Date / Time No Known Allergies Allergy Verified 06/05/24 11:18 Home Medications ?Medication ?Instructions ?Recorded ?Confirmed ?Last Taken ?Type vits no.124-ferrous fum 1 tab PO DAILY 05/30/24 05/30/24 06/04/24 History 27 mg iron-folic acid 800 mcg tablet ( Vitamin) Exam Height,Weight and Vital Signs: Height 5 ft Weight 92.986 kg Pertinent Lab Results Pertinent Lab Results: Laboratory Tests 05/29/24 14:07 WBC 7.9 RBC 4.32 Hgb 11.3 L Hct 36.5 L MCV 84.5 MCH 26.2 L MCHC 31.0 RDW 13.7 Plt Count 359 MPV 9.6 Immature Gran % (Auto) 0.4 Neut % (Auto) 59.2 Lymph % (Auto) 27.9 [place] % (Auto) 8.8 Eos % (Auto) 3.1 Baso % (Auto) 0.6 Lymph # (Auto) 2.2 [place] # (Auto) 0.7 Eos # (Auto) 0.2 Baso # (Auto) 0.1 Abs Immat Gran (auto) 0.03 Absolute Neuts (auto) 4.7 Absolute Nucleated RBC 0.000 Nucleated RBC % (auto) 0.0 PT 12.3 INR 1.1 APTT 39.1 H Sodium 140 Potassium 4.3 Chloride 106 Carbon Dioxide 27 Anion Gap 11 L BUN 15 Creatinine 0.70 Estim Creat Clear Calc TNP Estimated GFR > 60 Random Glucose 75 Estimat Average Glucose 97 Hemoglobin A1c % 5.0 Insulin Level 13 Calcium 9.6 D Total Bilirubin 0.6 AST 31 ALT 77 H Alkaline Phosphatase 97 C-Reactive Protein 1.71 H Total Protein 7.5 Albumin 4.0 Triglycerides 90 Cholesterol 103 LDL Cholesterol, Calc 51 HDL Cholesterol 34 L TSH 0.86 Blood Type A Positive Antibody Screen NEGATIVE Narrative Narrative: EKG 03/2024 Vent. Rate : 95 BPM Atrial Rate : 95 BPM P-R Int : 174 ms QRS Dur : 82 ms QT Int : 338 ms P-R-T Axes : 47 30 -9 degrees QTcB Int : 424 ms Normal sinus rhythm Normal ECG No previous ECGs available Assessment and Plan Assessment Anesthesia Assessment: Chart Reviewed Final Anesthetic Review History of Problems with Anesthesia: No Documented by User: Sabrina Josue MD 06/05/24 13:32 HPI - Anesthesia Eval Consult details Narrative: 29yo F for EGD, Laparoscopic Sleeve Gastrectomy, possible Diaphragmatic Hernia repair, possible Ventral Hernia repair, possible Open PMFSH Active Problems Active Problems: All Active Problems Vitamin B1 deficiency (Acute) Vitamin A deficiency (Acute) Vitamin D deficiency (Acute) control counseling (Acute) Women's annual routine gynecological examination (Acute) Anemia (Acute) Borderline high blood pressure (Acute) BCP ( control pills) initiation (Acute) Screen for sexually transmitted diseases (Acute) Obesity, morbid, BMI 40.0-49.9 (Acute) Encounter for gynecological examination with Papanicolaou smear of cervix (Acute) Cervical cancer screening (Acute) Irregular menstrual cycle (Acute) Complete (Acute) First trimester bleeding (Acute) Abnormal uterine bleeding (Acute) GERD (gastroesophageal reflux disease) (Acute) Morbid obesity (Acute) BMI 40 Missed (Acute) Threatened (Acute) Obesity (BMI 35.0-39.9 without comorbidity) (Acute) Past Medical History Medical History GERD (gastroesophageal reflux disease) Morbid obesity Missed Threatened Obesity (BMI 35.0-39.9 without comorbidity) Family History Family History Mother No problems noted. Father No problems noted. Family history of problems with anesthesia: No Surgical History Surgical History Hx of cholecystectomy History of Problems with Anesthesia: No Social History Social History Housing Other:: 2nd floor of 2 family house Are you a primary health care sanitary technician to a significant other at home: No Do you presently have visiting nurse or other home services: No Alcohol intake: never Patient Tobacco Use Status: Never used Tobacco Use of substances other than those prescribed or required for medical reasons: No Have you been hit, kicked, punched, or otherwise hurt by someone within the past year? If so, by whom?: No Spiritual Healthcare Practices: none Faith Healthcare Practices: none Cultural Healthcare Practices: none Are you DNR?: No Advance Directives: No Advance Directives Information Provided: No Advance Directives on File: No Patient : No FDLMP: 05/29/24 : No Poor oral hygiene: No Gender identity: Female Meds Allergies Allergy/AdvReac Type Severity Reaction Status Date / Time No Known Allergies Allergy Verified 06/05/24 11:18 Home Medications ?Medication ?Instructions ?Recorded ?Confirmed ?Last Taken ?Type vits no.124-ferrous fum 1 tab PO DAILY 05/30/24 05/30/24 06/04/24 History 27 mg iron-folic acid 800 mcg tablet ( Vitamin) Exam Height,Weight and Vital Signs: Height 5 ft Weight 92.986 kg Vital Signs Temp Pulse Resp BP Pulse Ox O2 Del Method 06/05/24 11:23 98.1 F 83 15 137/77 97 Room Air Pertinent Lab Results Pertinent Lab Results: Laboratory Tests 05/29/24 14:07 WBC 7.9 RBC 4.32 Hgb 11.3 L Hct 36.5 L MCV 84.5 MCH 26.2 L MCHC 31.0 RDW 13.7 Plt Count 359 MPV 9.6 Immature Gran % (Auto) 0.4 Neut % (Auto) 59.2 Lymph % (Auto) 27.9 [place] % (Auto) 8.8 Eos % (Auto) 3.1 Baso % (Auto) 0.6 Lymph # (Auto) 2.2 [place] # (Auto) 0.7 Eos # (Auto) 0.2 Baso # (Auto) 0.1 Abs Immat Gran (auto) 0.03 Absolute Neuts (auto) 4.7 Absolute Nucleated RBC 0.000 Nucleated RBC % (auto) 0.0 PT 12.3 INR 1.1 APTT 39.1 H Sodium 140 Potassium 4.3 Chloride 106 Carbon Dioxide 27 Anion Gap 11 L BUN 15 Creatinine 0.70 Estim Creat Clear Calc TNP Estimated GFR > 60 Random Glucose 75 Estimat Average Glucose 97 Hemoglobin A1c % 5.0 Insulin Level 13 Calcium 9.6 D Total Bilirubin 0.6 AST 31 ALT 77 H Alkaline Phosphatase 97 C-Reactive Protein 1.71 H Total Protein 7.5 Albumin 4.0 Triglycerides 90 Cholesterol 103 LDL Cholesterol, Calc 51 HDL Cholesterol 34 L TSH 0.86 Blood Type A Positive Antibody Screen NEGATIVE Laboratory Results - last 24 hr 06/05/24 13:00 Beta HCG, Quant < 2 Airway Mallampati Class: II TM Dist: >3cm Neck ROM: Full Loose/Missing/Broken Teeth: Yes (Missing wisdom teeth. Denies broken or loose teeth) Heart: RRR Lungs: CTAB Assessment and Plan Assessment Anesthesia Assessment: Anesthesia Plan Discussed and Chart Reviewed Final Anesthetic Review Family History of Problems with Anesthesia: No History of Problems with Anesthesia: No NPO: Yes ASA Class: III Final Preanesthetic Review: No Changes in Pt Med Stat, Meds/Allgs Chart Reviewed, Consent Obtained/Reviewed and Anes Risks/Benef Reviewed Patient Risk: Intermediate Procedure Risk: Intermediate Assessment/Block/Sedation in SS: Assess/Block/Sedation-SS Anesthetic Plan Anesthetic Plan: GA Disposition: Standard PACU and Inp. Admit - Standard Bed
[2024-06-05] VITALS (13 sets, daily range): BP systolic 116–148; BP diastolic 65–91; PULSE 72–94; RESP 12–19; TEMP 36.3–36.9; O2SAT 95–98
[2024-06-05] MEDS: Lactated Ringers 1,000 ML 999 ML IV (11:35)
[2024-06-05] MEDS: Aprepitant 32 MG/4.4 ML VIAL IVPUSH (11:35)
--- NOTE | 2024-06-05 13:07 | MHC.SHP ---
Pre-Procedural Eval Section A - 24 Hr Update-Section A only Date of Service: 06/05/24 The patient is an INPATIENT: Yes The patient has been examined within 24 hours of the surgical procedure. The History & Physical has been completed within 30 days and I have reviewed it.: No Section B - Complete if H&P > 30 days Chief Complaint: morbid obesity Relevant Family History (Specify if Yes): No Relevant Social History: None Present Medications: None Medical History: No relevant PMH History of Previous Operations: No relevant previous surgery Allergies: Allergies Allergy/AdvReac Type Severity Reaction Status Date / Time No Known Allergies Allergy Verified 06/05/24 11:18 Review of Systems Sugical H&P ROS: Negative: Constitution, Cardiovascular, Respiratory, Neurological, Psychiatric, Hem-Onc, Allergic/Immunologic, Gastrointestinal, Genitourinary, Musculoskeletal, Integumentary, Endocrine and Eyes/Ears/Nose/Throat Exam Surgical H&P Exam: Normal: HEENT, Normal: Heart, Normal: Lungs, Normal: Extremities, Normal: Abdomen, Normal: Skin and Normal: Neurological Plan Diagnosis/Plan: Unchanged I have reviewed the history and physical and performed a pertinent physical examination on my patient. No changes have occurred unless specified. Time Spent With Patient Time: Total time managing care of this patient today ____ minutes.
--- NOTE | 2024-06-05 13:09 | PM.OP ---
Brief Operative Note Date of Service: 06/05/24 Pre-op diagnosis: Morbid obesity Post-op diagnosis: same (& congenital adhesions) Procedure: INITIAL PATIENT BMI ON PRESENTATION AT OUR OFFICE: 45.4 kg/m2 LAST BMI BEFORE SURGERY: 41.6 kg/m2 COMORBIDITIES: GERD, hypertension, liver steatosis ?The patient presented to the Weight Management Program with significant obesity that was negatively impacting the patient's comorbidities as listed above.? The program is a phased program with a special focus on preoperative medical weight management to promote substantial weight loss and prepare the patients for the second phase of the program: bariatric surgery. The patient participated in an intensive weekly lifestyle ?intervention and exercise program during which the patient ?has lost between the initial office visit and the last preoperative visit 21.2lbs, or 9.1% of initial actual body weight. It was deemed appropriate for the patient to now have bariatric surgery. In light of the current Covid-19 pandemic and the well documented strong association of obesity and increased risk of worse outcomes if infected with Covid-19 (REFERENCES:https://pubmed.ncbi.nlm.nih.gov/18395890/,?https://pubmed.ncbi.nlm.nih.gov/40566505/), any delay in undergoing bariatric surgery may lead to the patient's worsening health condition and increased?risk of more severe Covid-19 disease if infected. In addition a recent?study from [facility] published in [facility] [employer] on 02/21/2021 ([email or web address]) found that, among patients with obesity, substantial weight loss achieved with surgery was associated with improved outcomes of COVID-19 infection. The findings suggest that obesity can be a modifiable risk factor for the severity of COVID-19 infection. In addition, the patient met the BMI-criteria for bariatric surgery based on the BMI on initial presentation. The patient should not be penalized for achieving such weight loss because ?it is not sustainable long-term without surgical intervention and it was achieved in preparation for bariatric surgery ?under my direction and based on my published research ([email or web address]).pdf and?https://www.soard.org/article/[email or web address](76)70382-X/pdf) ?that a 10% preoperative weight loss improves long-term weight loss after surgery and reduces perioperative complications.? Insurance carriers such as [facility] have endorsed my recommendations ?and have included in their policies criteria to include a 10% preoperative weight loss requirement. PROCEDURE: Esophago-gastroscopy, laparoscopic lysis of adhesions, laparoscopic sleeve gastrectomy and laparoscopic gastropexy INDICATIONS: This is a 29 year-old female who was electively scheduled for laparoscopic, possibly open sleeve gastrectomy. The risks and complications of the procedure were discussed with the patient in advance, particularly the possibility of ; pulmonary embolism; staple line leak; bleeding; GERD; cardiac, pulmonary, or renal complications; as well as long-term problems such as insufficient weight loss, vitamin deficiency, strictures, or ulcers. The patient understood all the risks, and was in agreement to proceed with surgery. DESCRIPTION OF PROCEDURE: After informed consent was obtained from the patient, the patient was given preoperative antibiotics, and was transferred to the operating room. After successful induction of general anesthesia, pneumatic compression devices were placed on both lower extremities. An upper endoscopy was performed next. The oropharynx and esophagus appeared to be within normal limits. There was no diaphragmatic hernia present. Then after all fluid and air were suctioned and the stomach was fully decompressed, the scope was withdrawn and secured in the mid esophagus. The patient was then prepped and draped in the usual sterile manner, and abdominal access was established at the right upper quadrant with the Shan technique. A 12 mm blunt port was inserted, and the abdomen was insufflated with CO2 to a pressure of 15 mmHg. Under direct visualization, additional ports were placed, specifically two 5 mm Versi-step ports to the left upper quadrant, and a 5 mm Versi-Step port to the right upper quadrant. 1% lidocaine plain was used to infiltrate all port sites as well as all fascia defects. Following that, the patient was placed in a steep reverse Trendelenburg position. An additional 5 mm port was placed to the right flank for the Mediflex retractor that was used to retract the left lobe of the liver. The gastro-esophageal fat pad was opened with the ultrasonic device (Thclinterbeavelina, Olympus) and the anterior esophagus and hiatus were exposed. The angle of His was opened with the ultrasonic device the fundus of the stomach from any diaphragmatic and splenic attachments. I then opened the gastrocolic ligament between the transverse colon and the greater curvature of the stomach with the ultrasonic device to enter the lesser sac and facilitate the ligation of the short gastric vessels. I started at a mid-point along the greater curvature and using the Thunderbeat, all short gastric vessels were divided all the way to the angle of His until the left carmen was completely dissected at its entirety. I then divided the gastro-colic ligament distally to a distance of about 3-4 cm proximal to the pylorus. There were extensive congenital adhesions between the pancreas and posterior gastric wall. Those were lysed completely with the ultrasonic device. Adhesiolysis took approximately 45 min to complete. The stomach was then divided transversely with two Endo JORDAN-45 purple and three JORDAN-60 articulating purple loads using the Risk I/O stapler and loads. Every effort was made that the gastric sleeve had a tubular shape and an even caliber throughout. Once the sleeve resection was completed, the staple line of the gastric sleeve was reinforced with Hemoclips. The resected stomach was retrieved without difficulty from the Shan port. A gastropexy was then performed in order to prevent postoperative GERD and partial gastric volvulus. Several interrupted 2.0 Surgidac sutures were placed between the sleeve's staple line and the previously divided greater omentum and gastro-colic ligament using the Endo-Stitch device. ?An upper endoscopy was performed. There was no narrowing at the GE junction. The scope was easily advanced all the way to the pylorus which was clearly visualized. There was no narrowing anywhere and the sleeve's caliber was even throughout. The sleeve's staple line was inspected and there was no evidence of ischemia, bleeding or dehiscence. At that point the gastroscope was withdrawn from the patient?s mouth while we were decompressing the bowel and the stomach from any remaining air. I looked into the lesser sac to see how the sleeve was situating and it was situating well. There was no bleeding from the staple line, spleen, or short gastric vessels. The Mediflex retractor was removed, and the undersurface of the liver was inspected and there was no bleeding. The patient was placed in supine position. I closed the fascial defect of the 12 mm port site with a figure of eight #1 Polysorb suture. Then 30cc Ropvacaine plain with 10 mg of Dexamethasone were used to infiltrate the fascial closure as well as all skin incisions. At this point, the abdomen was deflated, all ports were removed under direct vision, and no bleeding was noted from any of the port sites. The skin incisions were irrigated with saline and were closed with 4-0 absorbable monofilament sutures. Steri-Strips and OpSites were used to cover all incisions. The patient was extubated and was transferred in stable condition to the recovery room for further care. I was present and performed all whitt parts of the procedure. Ms. Carroll was the data assistant. There were no residents to assist with this case. Bam Dior MD, PhD, FACS Surgeon: Shad Dior MD Anesthesia: GETA, local and other (TAP block) Was an Hat Maker used for this Procedure?: No Hat Maker: Qing Carroll Estimated blood loss (mL): 10 IV fluids (mL): 2,000 Urine output (mL): 0 (No Méndez to record output) Pathology: other (1) Stomach, 2) Gastro-esophageal fat pad) Condition: stable Disposition: PACU
--- NOTE | 2024-06-05 13:12 | P.PNGS_ITS ---
Subjective Subjective Date of Service: 06/06/24 Interval history: Feels well. Mild incisional pain. She is tolerating phase 1 bariatric diet Physical Exam 2 Vital Signs: Vital Signs: Last Vital Signs Temp 98.1 F 06/05/24 11:23 Pulse 83 06/05/24 11:23 Resp 15 06/05/24 11:23 BP 137/77 06/05/24 11:23 Pulse Ox 97 06/05/24 11:23 O2 Del Method Room Air 06/05/24 11:23 BMI result Body Mass Index 40.0 GI: Inspection: Yes normal to inspection, Yes incision (clean, dry and intact) and Yes obesity Extrem: Right lower extremity: normal to inspection (no calf tenderness) L eft lower extremity: normal to inspection (no calf tenderness) Objective Data Active Medications Lactated Ringer's (Lr) 1,000 mls @ 100 mls/hr IVCONT .Q10H JANET Lactated Ringer's (Lr) 1,000 mls @ 999 mls/hr IV .Q1H1M JANET Stop: 06/05/24 13:15 Last Admin: 06/05/24 11:35 Dose: 999 mls/hr Documented By: [facility]OV[facility] Labs 06/05/24 15:53 06/05/24 15:53 Procedures Date of Service Date of Service: 06/06/24 Progress Note: A&P Assessment and plan (1) Morbid obesity: Status: Acute Assessment and Plan: s/p laparoscopic sleeve gastrectomy, lysis of adhesions and gastropexy Doing well Will check am labs and if OK the patient will be discharged home (2) GERD (gastroesophageal reflux disease): Status: Acute (3) Hypertension: Status: Acute (4) Steatosis, liver: Status: Acute (5) S/P laparoscopic sleeve gastrectomy: Status: Acute (6) Congenital intra-abdominal adhesions: Status: Acute Time Spent With Patient Time: Total time managing care of this patient today ____ minutes. Quality Stroke Does the patient have a stroke diagnosis?: No VTE Prior VTE?: No VTE Risk Level:: Surgical - moderate VTE Device Contraindication: N/A - Device Ordered VTE Drug Contraindication: Treatment Not Indicated
--- OUTSIDE RECORDS SUMMARY | 2024-06-05 13:23 | XMS_ITS | Clinical Summary ---
Author Organization [facility] Address [address] [place] [address] Phone Care Team Providers Care Physician Advisor Name Role Phone Physician, No Pcp Primary Care Provider Unavaila ble Allergies No known active allergies Encounters Date Type Department Care Team Description 03/25/2024 5:52 AM EST - 03/25/2024 12:22 PM EST Emergency [facility] Emergency [address] [place] [address] Guanako Gurrola MD Cauchon, Matthew C, Acute nonintractable headache, unspecified headache type (Primary Dx) Discharge Disposition: Home or Self Care from Last 3 Months Surgical History Surgery Date Site/Laterality Comments CHOLECYSTECTOMY 03/21/2021 PROCEDURE: [place] LAPAROSCOPY SURG CHOLECYSTECTOMY; COMMENT: Dr. Kenney Caicedo, [facility] Family History Medical History Relation [...] Vaccine ( season) 2023 02/08/2021 Influenza Vaccine (Season Ended) 2024 Hepatitis B Vaccines Completed 01/14/1997, 1996, 1996 [...] age to complete this topic Meningococcal B Vaccine Aged Out No l onger eligible based on patient's age to complete [...] Signed Date: 03/25/2024 10:31 ET Workstation ID: [id number] Transcribed By: Self Edit Transcribed Date: 03/25/2024 [...] Signed Date: 03/25/2024 10:31 ET Workstation ID: [id number] Transcribed By: Self Edit Transcribed Date: 03/25/2024 [...] and culture (03/25/2024 9:50 AM EST) Specific [place] Urine 1.026 1.003 - 1.030 LAB URINALYSIS - AUTOMATED METHOD 03/25/2024 11:09 AM [facility] pH, Urine 7.0 5.0 - 8.0 pH LAB URINALYSIS - AUTOMATED METHOD 03/25/2024 11:09 AM [facility] Leukocytes, Urine Negative Negative LAB URINALYSIS - AUTOMATED METHOD 03/25/2024 11:09 AM [facility] Nitrite, Urine Negative Negative LAB URINALYSIS - AUTOMATED METHOD 03/25/2024 11:09 AM [facility] Protein, Urine Trace <=Trace mg/dL LAB URINALYSIS - AUTOMATED METHOD 03/25/2024 11:09 AM [facility] Glucose, Urine Negative Negative mg/dL LAB URINALYSIS - AUTOMATED METHOD 03/25/2024 11:09 AM [facility] Ketones, Urine 40(A) Negative mg/dL LAB URINALYSIS - AUTOMATED METHOD 03/25/2024 11:09 AM [facility] Urobilinogen, Urine 1.0 0.2 - 1.0 mg/dL LAB URINALYSIS - AUTOMATED METHOD 03/25/2024 11:09 AM [facility] Bilirubin, Urine Negative Negative LAB URINALYSIS - AUTOMATED METHOD 03/25/2024 11:09 AM [facility] Blood, Urine Negative Negative LAB URINALYSIS - AUTOMATED METHOD 03/25/2024 11:09 AM [facility] Urine Urine specimen obtained by clean catch procedure / Unknown Non-blood Collection / Unknown 03/25/2024 9:50 AM EST 03/25/2024 11:03 AM EST us Guanako Gurrola MD LAB URINE ORDERABLES Final Resu lt [facility] [address] [place] [address], [place] [phone] * Ledezma urine culture tube (03/25/2024 9:50 AM EST) Pathologist [facility] Extra Tube Hold for add-ons. 03/26/2024 9:01 AM EST [facility] Comment:Auto resulted. Urine Urine specimen obtained by clean catch procedure / Unknown Non-blood Collection / Unknown 03/25/2024 9:50 AM EST 03/26/2024 7:09 AM EST us Guanako Gurrola MD LAB URINE ORDERABLES Final Resu lt [facility] [address] [place] [address], [place] [phone] * Drug abuse screen 8a panel, urine (03/25/2024 9:50 AM EST) [facility] Amphetamine Screen, Ur Negative Negative LAB CHEMISTRY METHOD 03/25/2024 11:34 AM EST [facility] Comment:Certain OTC medicati ons containing ephedrine, phenylephrine, pseudoephedrine and phenylpropanolamine can cause false positive results. Barbiturate Screen, Ur Negative Negative LAB CHEMISTRY METHOD 03/25/2024 11:34 AM [facility] Benzodiazepine Screen, Ur Negative Negative LAB CHEMISTRY METHOD 03/25/2024 11:34 AM [facility] Cocaine Screen, Ur Negative Negative LAB CHEMISTRY METHOD 03/25/2024 11:34 AM [facility] Opiate Screen, Ur Negative Negative LAB CHEMISTRY METHOD 03/25/2024 11:34 AM [facility] Cannabinoid (THC) Screen, Ur Negative Negative LAB CHEMISTRY METHOD 03/25/2024 11:34 AM [facility] Comment:Specimens from patie nts taking pantoprazole sodium (Protonix) have been shown to produce false positive results. Oxycodone Screen, Ur Negative Negative LAB CHEMISTRY METHOD 03/25/2024 11:34 AM EST [facility] Fentanyl, Ur Negative Negative LAB CHEMISTRY METHOD 03/25/2024 11:34 AM EST [facility] Urine Urine specimen obtained by clean catch procedure / Unknown Non-blood Collection / Unknown 03/25/2024 9:50 AM EST 03/25/2024 11:03 AM EST [facility] - 03/25/2024 11:34 AM EST [...] MD LAB URINE ORDERABLES Final Resu lt [facility] [address] [place] [address], * (ABNORMAL) CBC auto differential (03/25/2024 7:55 AM EST) WBC 11.7(H) 4.8 - 10.8 K/[facility] LAB HEMETOLOGY METHOD 03/25/2024 8:04 AM EST [facility] RBC 4.30 3.80 - 4.80 M/[facility] LAB HEMETOLOGY METHOD 03/25/2024 8:04 AM [facility] Hemoglobin 11.1(L) 11.5 - 16.0 g/dL LAB HEMETOLOGY METHOD 03/25/2024 8:04 AM [facility] Hematocrit 35.5 35.0 - 47.0 % LAB HEMETOLOGY METHOD 03/25/2024 8:04 AM [facility] MCV 83.3 79.0 - 98.0 FL LAB HEMETOLOGY METHOD 03/25/2024 8:04 AM [facility] MCH 26.1(L) 27.0 - 32.0 pcg LAB HEMETOLOGY METHOD 03/25/2024 8:04 AM [facility] MCHC 31.3(L) 32.0 - 37.0 g/dL LAB HEMETOLOGY METHOD 03/25/2024 8:04 AM [facility] RDW 14.1 11.0 - 15.0 % LAB HEMETOLOGY METHOD 03/25/2024 8:04 AM [facility] Platelets 382 130 - 400 K/mcL LAB HEMETOLOGY METHOD 03/25/2024 8:04 AM [facility] MPV 9.3 7.0 - 11.0 FL LAB HEMETOLOGY METHOD 03/25/2024 8:04 AM [facility] NRBC 0.0 <1.0 % LAB HEMETOLOGY METHOD 03/25/2024 8:04 AM [facility] NRBC Absolute 0.00 <0.10 K/mcL LAB HEMETOLOGY METHOD 03/25/2024 8:04 AM [facility] Neutrophils Relative 69.7 % LAB HEMETOLOGY METHOD 03/25/2024 8:04 AM [facility] Lymphocytes Relative 22.5 % LAB HEMETOLOGY METHOD 03/25/2024 8:04 AM [facility] Monocytes Relative 6.0 % LAB HEMETOLOGY METHOD 03/25/2024 8:04 AM [facility] Eosinophils Relative 0.9 % LAB HEMETOLOGY METHOD 03/25/2024 8:04 AM EST [facility] Basophils Relative 0.5 % LAB HEMETOLOGY METHOD 03/25/2024 8:04 AM EST [facility] Immature Granulocytes Relative 0.4 % LAB HEMETOLOGY METHOD 03/25/2024 8:04 AM [facility] Neutrophils Absolute 8.15(H) 1.50 - 7.00 K/mcL LAB HEMETOLOGY METHOD 03/25/2024 8:04 AM EST [facility] Lymphocytes Absolute 2.64 1.00 - 5.00 K/mcL LAB HEMETOLOGY METHOD 03/25/2024 8:04 AM EST [facility] Monocytes Absolute 0.70 0.20 - 1.00 K/mcL LAB HEMETOLOGY METHOD 03/25/2024 8:04 AM [facility] Eosinophils Absolute 0.11 0.00 - 0.50 K/mcL LAB HEMETOLOGY METHOD 03/25/2024 8:04 AM EST [facility] Basophils Absolute 0.06 0.00 - 0.20 K/mcL LAB HEMETOLOGY METHOD 03/25/2024 8:04 AM EST [facility] Immature Granulocytes Absolute 0.05(H) 0.00 - 0.03 K/mcL LAB HEMETOLOGY METHOD 03/25/2024 8:04 AM [facility] Blood Venous blood specimen / Unknown Venipuncture / Unknown 03/25/2024 7:55 AM EST 03/25/2024 7:55 AM EST us Guanako Gurrola MD LAB BLOOD ORDERABLES Final Resu lt [facility] [address] [place] [address], * Ethanol (03/25/2024 7:55 AM EST) Ethanol Level <3 0 - 10 mg/dL LAB CHEMISTRY METHOD 03/25/2024 8:45 AM [facility] Blood Venous blood specimen / Unknown Venipuncture / Unknown 03/25/2024 7:55 AM EST 03/25/2024 7:55 AM EST us Guanako Gurrola MD LAB BLOOD ORDERABLES Final Resu lt [facility] [address] [place] [address], [place] [phone] * (ABNORMAL) Comprehensive Metabolic Panel (CMP) (03/25/2024 7:55 AM EST) Sodium 137 133 - 145 mmol/L LAB CHEMISTRY METHOD 03/25/2024 8:29 AM [facility] Potassium 4.1 3.5 - 5.5 mmol/L LAB CHEMISTRY METHOD 03/25/2024 8:29 AM [facility] Chloride 104 96 - 110 mmol/L LAB CHEMISTRY METHOD 03/25/2024 8:29 AM [facility] CO2 25 21 - 32 mmol/L LAB CHEMISTRY METHOD 03/25/2024 8:29 AM [facility] Anion Gap 8 3 - 11 LAB CHEMISTRY METHOD 03/25/2024 8:29 AM [facility] Glucose 103(H) 70 - 100 mg/dL LAB CHEMISTRY METHOD 03/25/2024 8:29 AM [facility] BUN 11 5 - 25 mg/dL LAB CHEMISTRY METHOD 03/25/2024 8:29 AM [facility] Creatinine 0.76 0.50 - 1.10 mg/dL LAB CHEMISTRY METHOD 03/25/2024 8:29 AM [facility] eGFR 110 >=60 mL/min/1. 73m2 LAB CHEMISTRY METHOD 03/25/2024 8:29 AM [facility] Comment:Calculation based on the??Chronic Kidney Disease Epidemiology Collaboration (CKD-EPI) equation refit??without adjustment for race. BUN/Creatinine Ratio 14.5 LAB CHEMISTRY METHOD 03/25/2024 8:29 AM [facility] Calcium 9.2 8.5 - 10.5 mg/dL LAB CHEMISTRY METHOD 03/25/2024 8:29 AM [facility] AST (SGOT) 21 10 - 42 unit/L LAB CHEMISTRY METHOD 03/25/2024 8:29 AM [facility] ALT (SGPT) 57 10 - 60 unit/L LAB CHEMISTRY METHOD 03/25/2024 8:29 AM [facility] Alkaline Phosphatase 93 42 - 121 unit/L LAB CHEMISTRY METHOD 03/25/2024 8:29 AM [facility] Total Protein 7.6 6.0 - 8.0 g/dL LAB CHEMISTRY METHOD 03/25/2024 8:29 AM [facility] Albumin 3.7 3.2 - 5.0 g/dL LAB CHEMISTRY METHOD 03/25/2024 8:29 AM [facility] Total Bilirubin 0.3 0.0 - 1.4 mg/dL LAB CHEMISTRY METHOD 03/25/2024 8:29 AM [facility] Blood Venous blood specimen / Unknown Venipuncture / Unknown 03/25/2024 7:55 AM EST 03/25/2024 7:55 AM EST us Guanako Gurrola MD LAB BLOOD ORDERABLES Final Resu lt [facility] [address] [place] [address], from Last 3 Months Insurance [facility] [employer] Care Teams Physician Advisor Relationship Specialty Start Date End Date Physician, No Pcp PCP - General 03/25/24
--- OUTSIDE RECORDS SUMMARY | 2024-06-05 13:23 | XMS_ITS | Clinical Summary ---
Author Organization [address] Address [address] [place] [address] Phone Care Team Providers Care Button Tufter Name Role Phone Unavailable Primary Care Provider [...] Additional history exists Cervical cancer screening 01/14/2017 Covid-19 vaccine series ( season) 2023 Influenza vaccine 10/27/2024 RSV Immunization (1 - 1-dose 75+ series) 01/14/2071 Meningococcal Vaccine Aged Out 08/07/2008 No adia dorian eligible based on patient's age to complete this topic Pneumococcal Vaccine (2 - 49 years) Aged Out No longer eligible based on patient's age to complete this topic Insurance [employer] Member Subscriber Plan / Payer (Ef fective 2022-) Name:Ivelisse Edward Relation to Subscriber:Self Name:Ivelisse Edward Payer ID:[id number] Group ID:Not on file Type:Not on file Address: [place] [phone] [employer] COMM[employer]IC
[2024-06-05 13:30] LABS: HCG Quantitative < 2 mIU/mL
[2024-06-05] MEDS: ceFAZolin Sodium/Dextrose,Iso 2 GM/50 ML PIGGYBACK IV (13:38)
[2024-06-05] MEDS: Acetaminophen 1,000 MG/100 ML PIGGYBACK 400 MG IV (14:04)
--- NOTE | 2024-06-05 15:39 | P.DS_ITS ---
DS: Providers Provider Date of Service: 06/06/24 Date of admission: 06/05/24 11:04 Date of discharge: 06/06/24 Primary care physician: Beatriz Physician DS: Diagnosis Discharge Diagnosis (1) Morbid obesity: Status: Acute (2) GERD (gastroesophageal reflux disease): Status: Acute (3) Hypertension: Status: Acute (4) Steatosis, liver: Status: Acute DS: Summary Hospital Course Hospital Course: ADMITTING DIAGNOSIS: morbid obesity,?liver steatosis, anemia, GERD ? DISCHARGE DIAGNOSIS: same, s/p laparoscopic sleeve gastrectomy and gastropexy ? PAST SURGICAL HISTORY:?cholecystectomy ? PROCEDURE: upper endoscopy, laparoscopic sleeve gastrectomy and gastropexy ? DISCHARGE SUMMARY: ? History of Present Illness: ? The patient is a? 29? year-old woman with a BMI of? 40? kg/m2 and associated co- morbidities as described above. The patient had extensive work-up, lost?17.8 lbs preoperatively and was electively scheduled for laparoscopic, possible open sleeve gastrectomy and gastropexy. Risks and complications of the surgery were discussed with the patient in advance, particularly the possibility of , pulmonary embolism, anastomotic leak, bleeding, bowel injury, GERD, cardiac, renal or pulmonary complications. The patient understood all the risks and was in agreement with the surgical plan. ? Hospital Course: ? The patient underwent an uneventful laparoscopic sleeve gastrectomy with gastropexy on the day of admission. Postoperatively, the patient was transferred to the surgical floor. The patient received IV Acetaminophen and IV dilaudid for pain control. Patient was started on bariatric phase 1 diet POD #0. On postoperative day one, the patient was feeling well without nausea, vomiting, fevers, or tachycardia. The patient had some mild incisional pain and the abdomen was soft.? ? On the morning of postoperative day one, the patient was continued on 1 ounce of water or ice every half hour. During the day, the patient did fairly well, having some incisional pain, but able to ambulate adequately and to tolerate liquids well. ? Since the patient is doing well, we decided that the patient was ready to be discharged. The patient was given instructions to follow-up with me next week and to call my office for any fever over 101, persistent abdominal pain, nausea, vomiting, GERD, symptoms of DVT such as calf tenderness, or leg swelling, or pulmonary embolism such as chest pain or shortness of breath.? The patient was also instructed to drink 40-60 ounces of liquids per day using the 1-ounce cups. The patient had been given prescriptions for Tylenol for pain, Zofran prn for nausea, and pantoprazole and carafate previously. The patient was encouraged to ambulate and use the incentive spirometer. The patient was allowed to shower, but no baths, and encouraged to stay active at home. All of these instructions were given to the patient personally. All questions were answered and the patient understood all instructions, the instructions were also given to the patient in print. Time Attestation Discharge Coordination Time (in mins): 30 Quality: Safe Use of Opioids Does Pt have an Active Cancer Diagnosis on the Problem List?: No Quality: Stroke Does the patient have a stroke diagnosis?: No Physical Exam Vital Signs: Vital Signs: Last Vital Signs Temp 98.1 F 06/05/24 11:23 Pulse 83 06/05/24 11:23 Resp 15 06/05/24 11:23 BP 137/77 06/05/24 11:23 Pulse Ox 97 06/05/24 11:23 O2 Del Method Room Air 06/05/24 11:23 BMI result Body Mass Index 40.0 DS: Data Data Completed and Pending Pending studies at discharge: Pending at discharge 06/05/24 15:09 Surgical [PTH] Routine Labs on day of discharge: Laboratory Results - last 24 hr 06/05/24 13:00 Beta HCG, Quant < 2 Discharge Plan Discharge Anticipated Discharge Date/Time: 06/06/24 10:00 Patient Disposition: Home, Self-Care Discharge Diagnosis: s/p laparoscopic sleeve gastrectomy with gastropexy Referrals: Physician,None [Primary Care Provider] - 1 Week Discharge Medications: Continued pantoprazole 40 mg tablet,delayed release (DR/EC) 40 mg PO DAILY Qty: 90 0RF Discontinued cholecalciferol (vitamin D3) 125 mcg (5,000 unit) capsule 125 mcg PO DAILY Qty: 90 0RF vitamin A palmitate 3,000 mcg (10,000 unit) capsule 10,000 unit PO DAILY Qty: 90 0RF thiamine HCl (vitamin B1) 100 mg tablet 100 mg PO DAILY Qty: 90 0RF Vitamin 27 mg iron- 800 mcg Tablet 1 tab PO DAILY Discharge Orders: Discharge Order (Routine); Ordered 06/06/24 Ordered By: Shad Dior Activity on Discharge: No heavy lifting Stand Alone Forms: Patient Portal Discharge page Print Language: Scottish Care Plan Goals: weight loss Health Concerns: morbid obesity Plan of Treatment: No tub baths, sex or returning to work until discussed at first post op appointment. No alcohol, tobacco or illegal drug use. Continue to use incentive spirometer hourly while awake. Walk in home for 5- 10 minutes every 2 hours during the first week. Wear abdominal binder with activity. Follow all meal plan instructions from your bariatric surgeon. Review bariatric handbook and call with any questions. Discharge Instructions 1. Please call your doctor or come back to the emergency room should any new symptoms arise. 2. Activity: abstain from alcohol,? limited stair climbing, no bending, no driving, no exercise, no illicit substances, no lifting, no sex, no tub bath, no work. 4. Diet: follow your bariatric surgeons recommendations for advancing diet. 5. Dressing Change/Wound Care: Your incisions are covered with waterproof dressings. You can shower with these and pat dry. Do not rub over dressings or incisions. If the area is tender, you may apply an ice pack for short intervals (no more than 20 minutes on, followed by at least 20 minutes off). Do not apply heat. Do not use creams, lo tions, or topical antibiotics unless instructed to do so by your surgeon. 6. Call your doctor if: - Your temperature exceeds 101.5 F - You experience excessive pain or swelling - You have an unexpected reaction to medication - You have excessive bleeding - You experience continued vomiting/nausea - Your incision begins to separate - Your incision shows signs of infection such as increased redness, swelling, excessive pain, heat, or drainage (light blood or clear fluid is normal) General instructions: No lifting greater than 10 lbs for the next 6 weeks. [address] driving within 24 hours of taking narcotic pain medications. If you do not move your bowels in the next 2 days, please take milk of magnesia over the counter. Please follow the post op diet and do not advance your diet until you are seen in the office in about 2 weeks. Please walk around your home every hour or two to prevent blood clots from forming in your legs. You do not need to wake from sleeping to walk. Please sleep in a bed or couch to prevent kinking at the hips and knees. Please take your incentive spirometer (your lung director of direct marketing) home with you and use it for the next few days to prevent pneumonias. You may shower, no hot tubs, baths or swimming pools. Please call the office with any questions or concerns such as increasing abdominal pain, fever, chills, shortness of breath, chest pain, leg pain or swelling, or redness or drainage from your incisions. Please make sure you are consuming 40-60 ounces of total fluids per day. Avoid all carbonation. Do not hesitate to contact the office with any questions at . The patient's medical history has been reviewed and they are considered low risk for post op DVT and therefore DVT prophylaxis is not considered necessary. Travel after surgery was reviewed. The patient has not disclosed any travel plans during the first 30 days after surgery and they have been advised that within the first 30 days after surgery any bus, plane, train or car travel over 2 hours in duration is contraindicated due to the possibility of developing blood clots from immobility. Any travel, needs to include periods of ambulation of 10 minutes in duration every 2 hours.? The patient was instructed to discuss any plans for travel during this period with their bariatric surgeon. Assessment: s/p laparoscopic sleeve gastrectomy with gastropexy Discharge Date/Time: 06/06/24 10:02
[2024-06-05] MEDS: fentaNYL citrate/PF 100 MCG/2 ML VIAL 25 MCG IVPUSH ×4 (15:52→16:07)
[2024-06-05 16:03] LABS: Hematocrit 34.5 % (37.0-47.0); Hemoglobin 11.3 g/dl (12.0-16.0)
[2024-06-05 16:14] LABS: Anion Gap 14 (12-20); Blood Urea Nitrogen 13 mg/dL (9-16); Calcium 9.1 mg/dL (8.4-10.2); Carbon Dioxide 24 mmol/L (22-29); Chloride 105 mmol/L (96-108); Creatinine Clr Calc Pharmacy 107.9; Estimated Glomerular Filt Rate > 60; Glucose Random 88 mg/dL (60-115); Potassium 3.9 mmol/L (3.3-5.1); Sodium 139 mmol/L (135-145)
[2024-06-05] MEDS: Lactated Ringers 1,000 ML 100 ML IVCONT (16:40)
[2024-06-05] MEDS: 0.9 % Sodium Chloride Flush 3 ML SYRINGE IVFLUSH (16:42)
[2024-06-05] MEDS: HYDROmorphone HCl 0.5 MG/0.5 ML SYRINGE 0.25 MG IVPUSH (17:41)
--- NOTE | 2024-06-05 18:19 | PHA.MEDREC ---
Pharmacy Consult ? Medication Reconciliation Pharmacy has completed the medication reconciliation. Spoke to patient to confirm medication list. Ondansetron and sucralfate are to be taken after surgery so they were taken out of home med list. Last dose of medications was yesterday 06/04/24.
[2024-06-05] MEDS: Famotidine/PF 20 MG/2 ML VIAL IVPUSH (19:41)
[2024-06-05] MEDS: Acetaminophen 1,000 MG/100 ML PIGGYBACK 16.7 MG IV (19:42)
[2024-06-06] MEDS: Acetaminophen 1,000 MG/100 ML PIGGYBACK 16.7 MG IV (02:11)
[2024-06-06 02:13] VITALS: BP 116/64; PULSE 100; RESP 18; TEMP 36.6; O2SAT 96
[2024-06-06] MEDS: Lactated Ringers 1,000 ML 100 ML IVCONT (02:14)
[2024-06-06 07:08] VITALS: BP 134/78; PULSE 88; RESP 12; TEMP 37; O2SAT 97
[2024-06-06] MEDS: Famotidine/PF 20 MG/2 ML VIAL IVPUSH (07:54)
[2024-06-06 07:58] LABS: Basophils Percent Auto 0.1 % (0-2); Hematocrit 35.7 % (37.0-47.0); Hemoglobin 11.2 g/dl (12.0-16.0); Imm Gran Abs Auto 0.05 X10*3/uL (0.00-0.03); Imm Gran Pct Auto 0.5 % (0.0-0.4); Lymphocytes Absolute Auto 0.7 X10*3/uL (1.2-4.9); Lymphocytes Percent Auto 7.4 % (20-40); MANUAL DIFF FLAG SCAN; Mean Corpuscular HGB Conc 31.4 g/dl (31.0-35.0); Mean Corpuscular Hemoglobin 26.3 pg (27.0-33.0); Mean Corpuscular Volume 83.8 fL (80.0-98.0); Mean Platelet Volume 10.4 fL (9.4-12.3); Monocytes Absolute Auto 0.1 X10*3/uL (0.1-1.2); Monocytes Percent Auto 0.8 % (2-11); Neutrophils Absolute Auto 8.9 x10*3/uL (2.0-8.3); Neutrophils Percent Auto 91.2 % (45-73); Platelet Count 319 X10*3/uL (160-400); Red Blood Count 4.26 X10*6/uL (4.20-5.50); Red Cell Distribution Width 13.9 % (11.0-16.0); SCAN SMEAR FLAG 1; White Blood Count 9.8 X10*3/uL (4.8-10.8)
--- NOTE | 2024-06-06 08:04 | HO.POSTANES ---
Post Anesthesia Evaluation Post Anesthesia Evaluation Date of Service: 06/06/24 Vital Signs: Vital Signs Temp Pulse Resp BP Pulse Ox O2 Del Method 06/06/24 07:08 98.6 F 88 12 134/78 97 Room Air 06/06/24 02:13 97.8 F 100 18 116/64 96 Room Air 06/05/24 23:35 97.7 F 93 18 116/65 96 Room Air Anesthesia: General Endotracheal-GETA Mental Status: Awake Pain Control: Satisfactory Nausea/Vomiting: None Hydration: Adequate Anesthesia-Related Issues: No Anes. Related Issues
[2024-06-06 08:09] LABS: Anion Gap 15 (12-20); Blood Urea Nitrogen 10 mg/dL (9-16); Calcium 9.1 mg/dL (8.4-10.2); Carbon Dioxide 20 mmol/L (22-29); Chloride 108 mmol/L (96-108); Creatinine Clr Calc Pharmacy 121.8; Estimated Glomerular Filt Rate > 60; Glucose Random 87 mg/dL (60-115); Potassium 4.3 mmol/L (3.3-5.1); Sodium 139 mmol/L (135-145)
[2024-06-06 08:27] LABS: SLIDE REVIEW VERIFIED
--- NOTE | 2024-06-06 09:06 | MHC.CM.PN ---
PT DCD HOME SELF CARE
--- NOTE | 2024-06-06 09:07 | MHC.CM.PN ---
PT DCD HOME PRIOR TO BEING SEEN BY CM PT DC HOME SELF CARE
== END 2024-06-06 10:02 | disposition home or self-care (01) | DRG 403 ==
LOC: HO.SSSA 11:06 → HO.S3 15:15
PROVIDERS: Anesthesiology; Physician Assistant Surgical; Admitting Provider Surgery; Visit Provider Surgery
PROC: 0DB64Z3 Excision of Stomach, Percutaneous Endoscopic Approach, Vertical (ICD-10-PCS; CPT 43845; principal; 2024-06-05 12:50)
DX: E66.01 Morbid (severe) obesity due to excess calories (principal); K76.0 Fatty (change of) liver, not elsewhere classified; Q43.3 Congenital malformations of intestinal fixation; I10 Essential (primary) hypertension; K21.9 Gastro-esophageal reflux disease without esophagitis; Z68.41 Body mass index [BMI] 40.0-44.9, adult; Z79.899 Other long term (current) drug therapy
CPT/HCPCS: 36415; 80048; 80053; 80061; 83036; 83525; 84443; 84702; 85014; 85018; 85025; 85610; 85730; 86140; 86850; 86900; 86901; 88304; 88305; 88307; 88342; A4649; C9145; J0131; J0690; J1100; J1171; J2003; J2250; J2405; J2704; J2795; J3010; J7120

== ENCOUNTER → 2024-06-05 11:04 | Outpatient (BNV) | payer OTHER, SELFPAY | PROVIDERS: Admitting Provider Surgery; Visit Provider Surgery | DX: E66.813 Obesity, class 3 (principal); Z68.41 Body mass index [BMI] 40.0-44.9, adult; K76.0 Fatty (change of) liver, not elsewhere classified; Z98.84 Bariatric surgery status | CPT/HCPCS: 43659; 43775; 99024 ==

== ENCOUNTER 2024-06-09 08:39 | Outpatient (REF) | payer OTHER, SELFPAY ==
--- NOTE | ~2024-06-09 | FL_ITS ---
EXAMINATION: XR FLUOROSCOPY UPPER GI WITH AIR CLINICAL INFORMATION: Automated to severe obesity due to excess calories COMPARISON: None available. TECHNIQUE: Routine upper GI contrast study was performed in upright and lying position. FINDINGS: Following oral administration of thick barium and effervescent granules there is normal propagation bolus from the oral cavity through the pharynx, esophagus into stomach without any evidence of obstruction, narrowing or stricture. On placing patient in supine or prone lying there is small stomach noted from previous gastric sleeve surgery. Visualized stomach and the small bowel loops are normal caliber. There is normal peristalsis seen throughout the stomach and the duodenum. There is mild gastroesophageal reflux present without hiatal hernia FLUOROSCOPY TIME: 1 minute 21 seconds DOSE AREA PRODUCT: 1500 uGy-m2 (microgray-meter squared) FL/FL upper GI w air IMPRESSION: Status post gastric sleeve surgery with small stomach. Mild gastroesophageal reflux. Otherwise the upper GI exam is unremarkable. Electronically signed by: Marcial Devi MD 06/09/2024 12:49 PM EDT
--- OUTSIDE RECORDS SUMMARY | 2024-06-09 09:11 | XMS_ITS | Clinical Summary ---
Author Organization [address] Address [address] [place] [address] Phone Care Team Providers Care American Sign Language Teacher Name Role Phone Unavailable Primary Care Provider [...] Edward Relation to Subscriber:Self Name:Ivelisse Edward Payer ID:[id number] Group ID:Not on file Type:Not on file Address: [place] [phone] [employer]CIAL [employer] COMM[employer]
--- OUTSIDE RECORDS SUMMARY | 2024-06-09 09:12 | XMS_ITS | Clinical Summary ---
Author Organization [facility] Address [address] [place] [address] Phone Care Team Providers Care Councilor Name Role Phone Physician, No Pcp Primary Care Provider Unavaila ble Allergies No known active allergies Encounters Date Type Department Care Team Description 03/25/2024 5:52 AM EST - 03/25/2024 12:[address] [facility] Emergency [address] [place] [address] Guanako Gurrola MD Cauchon, Matthew C, Acute nonintractable headache, unspecified headache type (Primary Dx) Discharge Disposition: Home or Self Care from Last 3 Months Surgical History Surgery Date Site/Laterality Comments CHOLECYSTECTOMY 03/21/2021 PROCEDURE: [place] LAPAROSCOPY SURG CHOLECYSTECTOMY; COMMENT: Dr. Kenney Caicedo, [facility] Family History Medical History Relation Name [...] Signed Date: 03/25/2024 10:31 ET Workstation ID: [id number] Transcribed By: Self Edit Transcribed Date: 03/25/2024 [...] Signed Date: 03/25/2024 10:31 ET Workstation ID: [id number] Transcribed By: Self Edit Transcribed Date: 03/25/2024 [...] and culture (03/25/2024 9:50 AM EST) Specific [place] Urine 1.026 1.003 - 1.030 LAB URINALYSIS [...] MD LAB URINE ORDERABLES Final Resu lt [facility] [address] [place] [address], [place] [phone] * Ledezma urine culture tube (03/25/2024 9:50 AM EST) Pathologist [facility] Extra Tube Hold for add-ons. 03/26/2024 9:01 AM EST [facility] Comment:Auto resulted. Urine Urine specimen obtained by clean catch procedure / Unknown Non-blood Collection / Unknown 03/25/2024 9:50 AM EST 03/26/2024 7:09 AM EST us Guanako Gurrola MD LAB URINE ORDERABLES Final Resu lt [facility] [address] [place] [address], [place] [phone] * Drug abuse screen 8a panel, urine (03/25/2024 9:50 AM EST) [facility] Amphetamine Screen, Ur Negative Negative LAB CHEMISTRY METHOD 03/25/2024 11:34 AM EST [facility] Comment:Certain OTC medicati ons containing [...] LAB CHEMISTRY METHOD 03/25/2024 11:34 AM EST [facility] Fentanyl, Ur Negative Negative LAB CHEMISTRY METHOD 03/25/2024 11:34 AM EST [facility] Urine Urine specimen obtained by clean catch procedure / Unknown Non-blood Collection / Unknown 03/25/2024 9:50 AM EST 03/25/2024 11:03 AM EST [facility] LAB - 03/25/2024 11:34 AM [...] MD LAB URINE ORDERABLES Final Resu lt [facility] [address] [place] [address], * (ABNORMAL) CBC auto differential (03/25/2024 7:55 AM EST) WBC 11.7(H) 4.8 - 10.8 K/[facility] LAB HEMETOLOGY METHOD 03/25/2024 8:04 AM EST [facility] RBC 4.30 3.80 - 4.80 M/[facility] LAB HEMETOLOGY METHOD 03/25/2024 8:04 AM [facility] [...] LAB HEMETOLOGY METHOD 03/25/2024 8:04 AM EST [facility] Basophils Relative 0.5 % LAB HEMETOLOGY METHOD 03/25/2024 8:04 AM EST [facility] Immature Granulocytes Relative 0.4 % LAB HEMETOLOGY METHOD 03/25/2024 8:04 AM [facility] Neutrophils Absolute 8.15(H) 1.50 - 7.00 K/mcL LAB HEMETOLOGY METHOD 03/25/2024 8:04 AM EST [facility] Lymphocytes Absolute 2.64 1.00 - 5.00 K/mcL LAB HEMETOLOGY METHOD 03/25/2024 8:04 AM EST [facility] Monocytes Absolute 0.70 0.20 - 1.00 K/mcL LAB HEMETOLOGY METHOD 03/25/2024 8:04 AM [facility] Eosinophils Absolute 0.11 0.00 - 0.50 K/mcL LAB HEMETOLOGY METHOD 03/25/2024 8:04 AM EST [facility] Basophils Absolute 0.06 0.00 - 0.20 K/mcL LAB HEMETOLOGY METHOD 03/25/2024 8:04 AM EST [facility] Immature Granulocytes Absolute 0.05(H) 0.00 - 0.03 K/mcL LAB HEMETOLOGY METHOD 03/25/2024 8:04 AM [facility] Blood Venous blood specimen / Unknown Venipuncture / Unknown 03/25/2024 7:55 AM EST 03/25/2024 7:55 AM EST us Guanako Gurrola MD LAB BLOOD ORDERABLES Final Resu lt [facility]) [facility] [address] [place] [address], * Ethanol (03/25/2024 7:55 AM EST) Ethanol Level <3 0 - 10 mg/dL LAB CHEMISTRY METHOD 03/25/2024 8:45 AM [facility] Blood Venous blood specimen / Unknown Venipuncture / Unknown 03/25/2024 7:55 AM EST 03/25/2024 7:55 AM EST us Guanako Gurrola MD LAB BLOOD ORDERABLES Final Resu lt [facility] [address] [place] [address], [place] [phone] * (ABNORMAL) Comprehensive Metabolic Panel (CMP) (03/25/2024 [...] MD LAB BLOOD ORDERABLES Final Resu lt [facility] [address] [place] [address], from Last 3 Months Insurance [facility] Care Teams Councilor Relationship Specialty Start Date End Date Physician, No Pcp PCP - General 03/25/24
== END 2024-06-09 08:40 | disposition home or self-care (01) ==
LOC: HO.XRAY 08:39
PROVIDERS: Visit Provider Surgery
DX: E66.01 Morbid (severe) obesity due to excess calories (principal); K21.9 Gastro-esophageal reflux disease without esophagitis; R03.0 Elevated blood-pressure reading, without diagnosis of hypertension
CPT/HCPCS: 74246

== ENCOUNTER → 2024-06-09 08:41 | Outpatient (BNV) | payer OTHER, SELFPAY | PROVIDERS: Visit Provider Radiology Diagnostic Radiology | DX: K21.9 Gastro-esophageal reflux disease without esophagitis (principal); E66.01 Morbid (severe) obesity due to excess calories | CPT/HCPCS: 74246 ==

== ENCOUNTER → 2024-06-10 10:46 | Outpatient (AMB) | payer OTHER, SELFPAY ==
--- NOTE | 2024-06-10 10:30 | A.OFFWM_ITS ---
Intake Intake Visit Reasons: TV PO LSG 06/05/24 Allergies No Known Allergies Allergy (Verified 06/05/24 11:18) PFSH Medical History (Updated 06/10/24 @ 00:03 by Janet Mayers) Hypertension GERD (gastroesophageal reflux disease) Morbid obesity Missed Obesity (BMI 35.0-39.9 without comorbidity) Surgical History (Updated 06/06/24 @ 08:03 by Shad Dior MD) Hx of cholecystectomy Family History Mother No problems noted. Father No problems noted. Social History Household Members: Spouse Housing: House Housing Other:: 2nd floor of 2 family house Are you a primary pediatric critical care nurse to a significant other at home: No Do you presently have visiting nurse or other home services: No Alcohol intake: never Patient Tobacco Use Status: Never used Tobacco Second Hand Smoke Exposure: No Gender identity: Female Female Reproductive History Menstrual Age of Menarche: 13 Behavioral Health Assessment Weight Management Therapy Therapy Notes Details Subjective: Patient had bariatric surgery on 06/05/2024. She reports the surgery went well with no complications, and denies any pain or current concerns related to the procedure. She is currently on a liquid diet and reports doing ?pretty well,? noting she is adjusting to the pace of drinking. Patient shared that her family has been very supportive. She has requested two weeks off from work to aid in recovery. Objective: Patient presents for a behavioral health post-operative follow-up via telehealth, as part of the Surgical Weight Loss Program, aimed at providing comprehensive support to patients throughout their journey. PHQ-9 administered. Discussed current functioning, routine, and recovery process. Reviewed post-op goals and strategies to stay committed and engaged in progress. Emphasized the importance of adhering to the meal and exercise plan provided by the P provider, and encouraged open communication if any concerns arise. Assessment/Response: * Mental Status: Within normal limits (WNL) * Risk reported/identified: None PHQ-9: Score indicates no current concerns. Food/Weight/Diet Expectations of change PT had bariatric surgery on 06/05/2024. She started the program at 232 Lbs. Pre-op Weight: 205 Lbs. Post-Op weight as of today 06/10/2024: 197.4Lba PT's target weight is 130 lbs. . Meal plan: liquid diet. (shakes and clear liquids) Exercise: not cleared yet. Questionnaires PHQ-9 Over the last 2 weeks, how often have you been bothered by any of the following problems? 1. Little interest or pleasure in doing things: not at all 2. Feeling down, depressed, or hopeless: not at all 3. Trouble falling or staying asleep, or sleeping too much: not at all 4. Feeling tired or having little energy: not at all 5. Poor appetite or overeating: not at all 6. Feeling bad about yourself - or that you are a failure or have let yourself or your family down: not at all 7. Trouble concentrating on things, such as reading the newspaper or watching television: not at all 8. Moving or speaking so slowly that other people could have noticed. Or the opposite - being so fidgety or restless that you have been moving around a lot more than usual: not at all 9. Thoughts that you would be better off or of hurting yourself in some way: not at all Total score: 0 Depression Screening Interpretation: Negative Depression Screening Done: Yes 27394 - PHQ-9 Billing: Yes Source: Developed by Drs. Yonatan Yancey, Ania Rosa, Raza Roberts and colleagues, with an educational ana from [employer]. Assessment & Plan Assessment & Plan (1) Adjustment disorder, unspecified: Code(s): F43.20 - Adjustment disorder, unspecified (2) S/P laparoscopic sleeve gastrectomy: Code(s): Z98.84 - Bariatric surgery status Plan Patient is considered stable and does not require further follow-up with this provider unless BH symptoms arises or patient feels the need. Patient was provided information about an upcoming peer support group and advised to join the Facebook group for post-operative patients. Next aga: None. Telehealth Telehealth Telehealth Platform: [facility] Location of provider rendering services: other Location of patient: address on file Patient Identification confirmed using: Name, : Yes Telehealth method: voice only Patient verbally consented to treatment: Yes Patient verbally consented to billing insurance company: Yes Patient informed of any privacy concerns related to visit: Yes Minutes spent on Phone/Video with Pt.: 25 Coding Level of Care Code Established Pt Tele Psytx 30 mins (23964) Patient Type Established Diagnoses Adjustment disorder, unspecified F43.20 S/P laparoscopic sleeve gastrectomy Z98.84 Additional Codes PHQ-9 - 41881 - PHQ-9 Billing: Yes ([id number]) Time Spent (min) 25
--- OUTSIDE RECORDS SUMMARY | 2024-06-10 13:02 | XMS_ITS | Clinical Summary ---
Author Organization [address] Address [address] [place] [address] Phone Care Team Providers Care Neonatologist Name Role Phone Unavailable Primary Care Provider [...] Edward Relation to Subscriber:Self Name:Ivelisse Edward Payer ID:[id number] Group ID:Not on file Type:Not on file Address: [place] [phone] [employer] [place] [address]
--- OUTSIDE RECORDS SUMMARY | 2024-06-10 13:02 | XMS_ITS | Clinical Summary ---
Author Organization [facility] Address [address] [place] [address] Phone Care Team Providers Care Housing Development Specialist Name Role Phone Physician, No Pcp Primary Care Provider Unavaila ble Allergies No known active allergies Encounters Date Type Department Care Team Description 03/25/2024 5:52 AM EST - 03/25/2024 12:22 PM EST Emergency [facility] Emergency [address] [place] [address] Guanako Gurrola MD Cauchon, Matthew C, Acute nonintractable headache, unspecified headache type (Primary Dx) Discharge Disposition: Home or Self Care from Last 3 Months Surgical History Surgery Date Site/Laterality Comments CHOLECYSTECTOMY 03/21/2021 PROCEDURE: [place] LAPAROSCOPY SURG CHOLECYSTECTOMY; COMMENT: Dr. Kenney Caicedo, [facility] Family History Medical History Relation Name [...] Signed Date: 03/25/2024 10:31 ET Workstation ID: [id number] Transcribed By: Self Edit Transcribed Date: 03/25/2024 [...] Signed Date: 03/25/2024 10:31 ET Workstation ID: [id number] Transcribed By: Self Edit Transcribed Date: 03/25/2024 [...] and culture (03/25/2024 9:50 AM EST) Specific [place] Urine 1.026 1.003 - 1.030 LAB URINALYSIS - AUTOMATED METHOD 03/25/2024 11:[address] [facility] pH, Urine 7.0 5.0 - 8.0 pH LAB URINALYSIS - AUTOMATED METHOD 03/25/2024 11:[address] [facility] Leukocytes, Urine Negative Negative LAB URINALYSIS - AUTOMATED METHOD 03/25/2024 11:[address] [facility] Nitrite, Urine Negative Negative LAB URINALYSIS - AUTOMATED METHOD 03/25/2024 11:[address] [facility] Protein, Urine Trace <=Trace mg/dL LAB URINALYSIS - AUTOMATED METHOD 03/25/2024 11:[address] [facility] Glucose, Urine Negative Negative mg/dL LAB URINALYSIS - AUTOMATED METHOD 03/25/2024 11:[address] [facility] Ketones, Urine 40(A) Negative mg/dL LAB URINALYSIS - AUTOMATED METHOD 03/25/2024 11:[address] [facility] Urobilinogen, Urine 1.0 0.2 - 1.0 mg/dL LAB URINALYSIS - AUTOMATED METHOD 03/25/2024 11:[address] [facility] Bilirubin, Urine Negative Negative LAB URINALYSIS - AUTOMATED METHOD 03/25/2024 11:[address] [facility] Blood, Urine Negative Negative LAB URINALYSIS - AUTOMATED METHOD 03/25/2024 11:[address] [facility] Urine Urine specimen obtained by clean catch procedure / Unknown Non-blood Collection / Unknown 03/25/2024 9:50 AM EST 03/25/2024 11:03 AM EST us Guanako Gurrola MD LAB URINE ORDERABLES Final Resu lt [facility] [address] [place] [address], [place] [phone] * Ledezma urine culture tube (03/25/2024 9:50 AM EST) Pathologist [facility] [place] Extra Tube Hold for add-ons. 03/26/2024 9:01 AM EST [facility] Comment:Auto resulted. Urine Urine specimen obtained by clean catch procedure / Unknown Non-blood Collection / Unknown 03/25/2024 9:50 AM EST 03/26/2024 7:09 AM EST us Guanako Gurrola MD LAB URINE ORDERABLES Final Resu lt [facility] [address] [place] [address], [place] [phone] * Drug abuse screen 8a panel, urine (03/25/2024 9:50 AM EST) [facility] Amphetamine Screen, Ur Negative Negative LAB CHEMISTRY METHOD 03/25/2024 11:34 AM EST [facility] Comment:Certain OTC medicati ons containing ephedrine, phenylephrine, pseudoephedrine and phenylpropanolamine can cause false positive results. Barbiturate Screen, Ur Negative Negative LAB CHEMISTRY METHOD 03/25/2024 11:[address] [facility] Benzodiazepine Screen, Ur Negative Negative LAB CHEMISTRY METHOD 03/25/2024 11:[address] [facility] Cocaine Screen, Ur Negative Negative LAB CHEMISTRY METHOD 03/25/2024 11:[address] [facility] Opiate Screen, Ur Negative Negative LAB CHEMISTRY METHOD 03/25/2024 11:[address] [facility] Cannabinoid (THC) Screen, Ur Negative Negative LAB CHEMISTRY METHOD 03/25/2024 11:[address] [facility] Comment:Specimens from patie nts taking pantoprazole sodium (Protonix) have been shown to produce false positive results. Oxycodone Screen, Ur Negative Negative LAB CHEMISTRY METHOD 03/25/2024 11:34 AM EST [facility] Fentanyl, Ur Negative Negative LAB CHEMISTRY METHOD 03/25/2024 11:34 AM EST [facility] Urine Urine specimen obtained by clean catch procedure / Unknown Non-blood Collection / Unknown 03/25/2024 9:50 AM EST 03/25/2024 11:03 AM EST [facility] - 03/25/2024 11:34 AM [...] MD LAB URINE ORDERABLES Final Resu lt [facility] [address] [place] [address], * (ABNORMAL) CBC auto differential (03/25/2024 7:55 AM EST) WBC 11.7(H) 4.8 - 10.8 K/[facility] LAB HEMETOLOGY METHOD 03/25/2024 8:04 AM EST [facility] RBC 4.30 3.80 - 4.80 M/[facility] LAB HEMETOLOGY METHOD 03/25/2024 8:[address] [facility] Hemoglobin 11.1(L) 11.5 - 16.0 g/dL LAB HEMETOLOGY METHOD 03/25/2024 8:[address] [facility] Hematocrit 35.5 35.0 - 47.0 % LAB HEMETOLOGY METHOD 03/25/2024 8:[address] [facility] MCV 83.3 79.0 - 98.0 FL LAB HEMETOLOGY METHOD 03/25/2024 8:[address] [facility] MCH 26.1(L) 27.0 - 32.0 pcg LAB HEMETOLOGY METHOD 03/25/2024 8:[address] [facility] MCHC 31.3(L) 32.0 - 37.0 g/dL LAB HEMETOLOGY METHOD 03/25/2024 8:[address] [facility] RDW 14.1 11.0 - 15.0 % LAB HEMETOLOGY METHOD 03/25/2024 8:[address] [facility] Platelets 382 130 - 400 K/mcL LAB HEMETOLOGY METHOD 03/25/2024 8:[address] [facility] MPV 9.3 7.0 - 11.0 FL LAB HEMETOLOGY METHOD 03/25/2024 8:[address] [facility] NRBC 0.0 <1.0 % LAB HEMETOLOGY METHOD 03/25/2024 8:[address] [facility] NRBC Absolute 0.00 <0.10 K/mcL LAB HEMETOLOGY METHOD 03/25/2024 8:[address] [facility] Neutrophils Relative 69.7 % LAB HEMETOLOGY METHOD 03/25/2024 8:[address] [facility] Lymphocytes Relative 22.5 % LAB HEMETOLOGY METHOD 03/25/2024 8:[address] [facility] Monocytes Relative 6.0 % LAB HEMETOLOGY METHOD 03/25/2024 8:[address] [facility] Eosinophils Relative 0.9 % LAB HEMETOLOGY METHOD 03/25/2024 8:04 AM EST [facility] Basophils Relative 0.5 % LAB HEMETOLOGY METHOD 03/25/2024 8:04 AM EST [facility] Immature Granulocytes Relative 0.4 % LAB HEMETOLOGY METHOD 03/25/2024 8:[address] [facility] Neutrophils Absolute 8.15(H) 1.50 - 7.00 K/mcL LAB HEMETOLOGY METHOD 03/25/2024 8:04 AM EST [facility] Lymphocytes Absolute 2.64 1.00 - 5.00 K/mcL LAB HEMETOLOGY METHOD 03/25/2024 8:04 AM EST [facility] Monocytes Absolute 0.70 0.20 - 1.00 K/mcL LAB HEMETOLOGY METHOD 03/25/2024 8:[address] [facility] Eosinophils Absolute 0.11 0.00 - 0.50 K/mcL LAB HEMETOLOGY METHOD 03/25/2024 8:04 AM EST [facility] Basophils Absolute 0.06 0.00 - 0.20 K/mcL LAB HEMETOLOGY METHOD 03/25/2024 8:04 AM EST [facility] Immature Granulocytes Absolute 0.05(H) 0.00 - 0.03 K/mcL LAB HEMETOLOGY METHOD 03/25/2024 8:[address] [facility] Blood Venous blood specimen / Unknown Venipuncture / Unknown 03/25/2024 7:55 AM EST 03/25/2024 7:55 AM EST us Guanako Gurrola MD LAB BLOOD ORDERABLES Final Resu lt [facility] [address] [place] [address], * Ethanol (03/25/2024 7:55 AM EST) Ethanol Level <3 0 - 10 mg/dL LAB CHEMISTRY METHOD 03/25/2024 8:[address] [facility] Blood Venous blood specimen / Unknown Venipuncture / Unknown 03/25/2024 7:55 AM EST 03/25/2024 7:55 AM EST us Guanako Gurrola MD LAB BLOOD ORDERABLES Final Resu lt [facility] [address] [place] [address], [place] [phone] * (ABNORMAL) Comprehensive Metabolic Panel (CMP) (03/25/2024 7:55 AM EST) Sodium 137 133 - 145 mmol/L LAB CHEMISTRY METHOD 03/25/2024 8:[address] [facility] Potassium 4.1 3.5 - 5.5 mmol/L LAB CHEMISTRY METHOD 03/25/2024 8:[address] [facility] Chloride 104 96 - 110 mmol/L LAB CHEMISTRY METHOD 03/25/2024 8:[address] [facility] CO2 25 21 - 32 mmol/L LAB CHEMISTRY METHOD 03/25/2024 8:[address] [facility] Anion Gap 8 3 - 11 LAB CHEMISTRY METHOD 03/25/2024 8:[address] [facility] Glucose 103(H) 70 - 100 mg/dL LAB CHEMISTRY METHOD 03/25/2024 8:[address] [facility] BUN 11 5 - 25 mg/dL LAB CHEMISTRY METHOD 03/25/2024 8:[address] [facility] Creatinine 0.76 0.50 - 1.10 mg/dL LAB CHEMISTRY METHOD 03/25/2024 8:[address] [facility] eGFR 110 >=60 mL/min/1. 73m2 LAB CHEMISTRY METHOD 03/25/2024 8:[address] [facility] Comment:Calculation based on the??Chronic Kidney Disease Epidemiology Collaboration (CKD-EPI) equation refit??without adjustment for race. BUN/Creatinine Ratio 14.5 LAB CHEMISTRY METHOD 03/25/2024 8:[address] [facility] Calcium 9.2 8.5 - 10.5 mg/dL LAB CHEMISTRY METHOD 03/25/2024 8:[address] [facility] AST (SGOT) 21 10 - 42 unit/L LAB CHEMISTRY METHOD 03/25/2024 8:[address] [facility] ALT (SGPT) 57 10 - 60 unit/L LAB CHEMISTRY METHOD 03/25/2024 8:[address] [facility] Alkaline Phosphatase 93 42 - 121 unit/L LAB CHEMISTRY METHOD 03/25/2024 8:[address] [facility] Total Protein 7.6 6.0 - 8.0 g/dL LAB CHEMISTRY METHOD 03/25/2024 8:[address] [facility] Albumin 3.7 3.2 - 5.0 g/dL LAB CHEMISTRY METHOD 03/25/2024 8:[address] [facility] Total Bilirubin 0.3 0.0 - 1.4 mg/dL LAB CHEMISTRY METHOD 03/25/2024 8:[address] [facility] Blood Venous blood specimen / Unknown Venipuncture / Unknown 03/25/2024 7:55 AM EST 03/25/2024 7:55 AM EST us Guanako Gurrola MD LAB BLOOD ORDERABLES Final Resu lt [facility] [address] [place] [address], from Last 3 Months Insurance [facility] Care Teams Housing Development Specialist Relationship Specialty Start Date End Date Physician, No Pcp PCP - General 03/25/24
== END ==
PROVIDERS: Visit Provider Counselor Mental Health
DX: F43.20 Adjustment disorder, unspecified (principal); Z98.84 Bariatric surgery status
CPT/HCPCS: 90832

== ENCOUNTER 2024-06-12 15:04 | Outpatient (AMB) | payer OTHER, SELFPAY ==
--- NOTE | 2024-06-12 15:06 | MHC.OFFVISWM ---
VS Expanded 06/12/24 15:23 BP 137/71 Blood Pressure Location Rt brachial Blood Pressure Position Sitting Pulse 90 Pulse Source Pulse Oximeter Temp 95.7 F L Temperature Source Temporal Artery Scan Pulse Oximetry 98 Oxygen Delivery Method Room Air Height 5 ft Weight 192 lb BMI 37.5 Body Fat % 42.1 Body Fat Mass 80.6 Fat Free Mass 111.2 Visceral Fat Rating 9.0 Body Water % 41.7 Body Water Mass 80.0 Muscle Mass/Score 105.4 Basal Metabolic Rate/Score 1,584 Intake Visit Reasons: (OV) PO LSG 06/05/24 Allergies No Known Allergies Allergy (Verified 06/12/24 15:12) Medication List - Last Reconciled 06/12/24 by MAGED Patton pantoprazole 40 mg PO DAILY sucralfate 10 mL PO BID HPI Comments Details: Pt is 1 week s/p LSG 06/05/2024. Pain is controlled. Started Celebrate Rebuild 2 scoops in 8oz unsweetened almond milk. Getting adequate hydration. Purchased vitamins, plans to start. [facility] Medical History (Updated 06/12/24 @ 15:43 by MAGED Patton) Hypertension GERD (gastroesophageal reflux disease) Morbid obesity Missed Obesity (BMI 35.0-39.9 without comorbidity) Surgical History (Updated 06/12/24 @ 15:13 by Yamileth Collier CMA) S/P laparoscopic sleeve gastrectomy Hx of cholecystectomy Family History Mother No problems noted. Father No problems noted. Social History Household Members: Spouse Housing: House Housing Other:: 2nd floor of 2 family house Are you a primary toddler caregiver to a significant other at home: No Do you presently have visiting nurse or other home services: No Alcohol intake: never Patient Tobacco Use Status: Never used Tobacco Second Hand Smoke Exposure: No Gender identity: Female Female Reproductive History Menstrual Age of Menarche: 13 Physical Exam Vital Signs: Last Vital Signs Temp 95.7 F L 06/12/24 15:23 Pulse 90 06/12/24 15:23 BP 137/71 06/12/24 15:23 Pulse Ox 98 06/12/24 15:23 Oxygen Delivery Method Room Air 06/12/24 15:23 BMI result Body Mass Index 37.5 Const General: cooperative, comfortable and no acute distress Orientation/consciousness: patient oriented x3 GI Other: soft, nontender, nondistended, steri-strips c/d/i Neuro General: patient oriented x3 Assessment & Plan Assessment & Plan (1) S/P laparoscopic sleeve gastrectomy: Code(s): Z98.84 - Bariatric surgery status Category: Surgical (2) Obesity: Code(s): E66.9 - Obesity, unspecified Category: Medical Plan May shower tomorrow but no bath or submersion of abdomen in water. May start exercise.? No abdominal exercises x 6 weeks. Abdominal binder for the next 2 weeks with activity or exercise. Continue meal plan per Dr Roland until next f/u. Reviewed pantoprazole and carafate dosing. Reminded of the pace of drinking 2 mL/min or 1oz per 15 min. Will be emailed link for post op video for review. RTC 2-3 weeks.
[2024-06-12 15:23] VITALS: BP 137/71; PULSE 90; TEMP 35.4; O2SAT 98; BMI 37.5
--- OUTSIDE RECORDS SUMMARY | 2024-06-12 17:50 | XMS_ITS | Clinical Summary ---
Author Organization [address] Address [address] [place] [address] Phone Care Team Providers Care Principal Embedded Software Engineer Name Role Phone Unavailable Primary Care Provider [...] Edward Relation to Subscriber:Self Name:Ivelisse Edward Payer ID:[id number] Group ID:Not on file Type:Not on file Address: [place] [phone] COMMERCIAL GENERIC COMMERCIAL GENERIC
--- OUTSIDE RECORDS SUMMARY | 2024-06-12 17:51 | XMS_ITS | Clinical Summary ---
Author Organization [facility] Address [address] [place] [address] Phone Care Team Providers Care Quality Head Name Role Phone Physician, No Pcp Primary Care Provider Unavaila ble Allergies No known active allergies Encounters Date Type Department Care Team Description 03/25/2024 5:52 AM EST - 03/25/2024 12:[address] [facility] Emergency [address] [place] [address] Guanako Gurrola MD Cauchon, Matthew C, Acute nonintractable headache, unspecified headache type (Primary Dx) Discharge Disposition: Home or Self Care from Last 3 Months Surgical History Surgery Date Site/Laterality Comments CHOLECYSTECTOMY 03/21/2021 PROCEDURE: [place] LAPAROSCOPY SURG CHOLECYSTECTOMY; COMMENT: Dr. Kenney Caicedo, [facility] Family History Medical History Relation Name Comments [...] Signed Date: 03/25/2024 10:31 ET Workstation ID: [id number] Transcribed By: Self Edit Transcribed Date: 03/25/2024 [...] Signed Date: 03/25/2024 10:31 ET Workstation ID: [id number] Transcribed By: Self Edit Transcribed Date: 03/25/2024 [...] and culture (03/25/2024 9:50 AM EST) Specific [place] Urine 1.026 1.003 - 1.030 LAB URINALYSIS - AUTOMATED METHOD 03/25/2024 11:09 AM [facility] pH, Urine 7.0 5.0 - 8.0 pH LAB URINALYSIS - AUTOMATED METHOD 03/25/2024 11:09 AM [facility] Leukocytes, Urine Negative Negative LAB URINALYSIS - AUTOMATED METHOD 03/25/2024 11:09 AM [facility] Nitrite, Urine Negative Negative LAB URINALYSIS - AUTOMATED METHOD 03/25/2024 11:09 AM [facility] Protein, Urine Trace <=Trace mg/dL LAB URINALYSIS - AUTOMATED METHOD 03/25/2024 11:09 AM [facility] Glucose, Urine Negative Negative mg/dL LAB URINALYSIS - AUTOMATED METHOD 03/25/2024 11:09 AM [facility] Ketones, Urine 40(A) Negative mg/dL LAB URINALYSIS - AUTOMATED METHOD 03/25/2024 11:09 AM [facility] Urobilinogen, Urine 1.0 0.2 - 1.0 mg/dL LAB URINALYSIS - AUTOMATED METHOD 03/25/2024 11:09 AM [facility] Bilirubin, Urine Negative Negative LAB URINALYSIS - AUTOMATED METHOD 03/25/2024 11:09 AM [facility] Blood, Urine Negative Negative LAB URINALYSIS - AUTOMATED METHOD 03/25/2024 11:09 AM [facility] Urine Urine specimen obtained by clean catch procedure / Unknown Non-blood Collection / Unknown 03/25/2024 9:50 AM EST 03/25/2024 11:03 AM EST us Guanako Gurrola MD LAB URINE ORDERABLES Final Resu lt [facility] [address] [place] [address], [place] [phone] * Ledezma urine culture tube (03/25/2024 9:50 AM EST) Pathologist [facility] Extra Tube Hold for add-ons. 03/26/2024 9:01 AM EST [facility] Comment:Auto resulted. Urine Urine specimen obtained by clean catch procedure / Unknown Non-blood Collection / Unknown 03/25/2024 9:50 AM EST 03/26/2024 7:09 AM EST us Guanako Gurrola MD LAB URINE ORDERABLES Final Resu lt [facility] [address] [place] [address], [place] [phone] * Drug abuse screen 8a panel, urine (03/25/2024 9:50 AM EST) [facility] Amphetamine Screen, Ur Negative Negative LAB CHEMISTRY METHOD 03/25/2024 11:34 AM EST [facility] Comment:Certain OTC medicati ons containing ephedrine, phenylephrine, pseudoephedrine and phenylpropanolamine can cause false positive results. Barbiturate Screen, Ur Negative Negative LAB CHEMISTRY METHOD 03/25/2024 11:34 AM [facility] Benzodiazepine Screen, Ur Negative Negative LAB CHEMISTRY METHOD 03/25/2024 11:34 AM [facility] Cocaine Screen, Ur Negative Negative LAB CHEMISTRY METHOD 03/25/2024 11:34 AM [facility] Opiate Screen, Ur Negative Negative LAB CHEMISTRY METHOD 03/25/2024 11:34 AM [facility] Cannabinoid (THC) Screen, Ur Negative Negative LAB CHEMISTRY METHOD 03/25/2024 11:34 AM [facility] Comment:Specimens from patie nts taking pantoprazole sodium (Protonix) have been shown to produce false positive results. Oxycodone Screen, Ur Negative Negative LAB CHEMISTRY METHOD 03/25/2024 11:34 AM EST [facility] Fentanyl, Ur Negative Negative LAB CHEMISTRY METHOD 03/25/2024 11:34 AM EST [facility] Urine Urine specimen obtained by clean catch procedure / Unknown Non-blood Collection / Unknown 03/25/2024 9:50 AM EST 03/25/2024 11:03 AM EST [facility] - 03/25/2024 11:34 AM EST [...] MD LAB URINE ORDERABLES Final Resu lt [facility] [address] [place] [address], * (ABNORMAL) CBC auto differential (03/25/2024 7:55 AM EST) WBC 11.7(H) 4.8 - 10.8 K/[facility] LAB HEMETOLOGY METHOD 03/25/2024 8:04 AM EST [facility] RBC 4.30 3.80 - 4.80 M/[facility] LAB HEMETOLOGY METHOD 03/25/2024 8:04 AM [facility] Hemoglobin 11.1(L) 11.5 - 16.0 g/dL LAB HEMETOLOGY METHOD 03/25/2024 8:04 AM [facility] Hematocrit 35.5 35.0 - 47.0 % LAB HEMETOLOGY METHOD 03/25/2024 8:04 AM [facility] MCV 83.3 79.0 - 98.0 FL LAB HEMETOLOGY METHOD 03/25/2024 8:04 AM [facility] MCH 26.1(L) 27.0 - 32.0 pcg LAB HEMETOLOGY METHOD 03/25/2024 8:04 AM [facility] MCHC 31.3(L) 32.0 - 37.0 g/dL LAB HEMETOLOGY METHOD 03/25/2024 8:04 AM [facility] RDW 14.1 11.0 - 15.0 % LAB HEMETOLOGY METHOD 03/25/2024 8:04 AM [facility] Platelets 382 130 - 400 K/mcL LAB HEMETOLOGY METHOD 03/25/2024 8:04 AM [facility] MPV 9.3 7.0 - 11.0 FL LAB HEMETOLOGY METHOD 03/25/2024 8:04 AM [facility] NRBC 0.0 <1.0 % LAB HEMETOLOGY METHOD 03/25/2024 8:04 AM [facility] NRBC Absolute 0.00 <0.10 K/mcL LAB HEMETOLOGY METHOD 03/25/2024 8:04 AM [facility] Neutrophils Relative 69.7 % LAB HEMETOLOGY METHOD 03/25/2024 8:04 AM [facility] Lymphocytes Relative 22.5 % LAB HEMETOLOGY METHOD 03/25/2024 8:04 AM [facility] Monocytes Relative 6.0 % LAB HEMETOLOGY METHOD 03/25/2024 8:04 AM [facility] Eosinophils Relative 0.9 % LAB HEMETOLOGY METHOD 03/25/2024 8:04 AM EST [facility] Basophils Relative 0.5 % LAB HEMETOLOGY METHOD 03/25/2024 8:04 AM EST [facility] Immature Granulocytes Relative 0.4 % LAB HEMETOLOGY METHOD 03/25/2024 8:04 AM [facility] Neutrophils Absolute 8.15(H) 1.50 - 7.00 K/mcL LAB HEMETOLOGY METHOD 03/25/2024 8:04 AM EST [facility] Lymphocytes Absolute 2.64 1.00 - 5.00 K/mcL LAB HEMETOLOGY METHOD 03/25/2024 8:04 AM EST [facility] Monocytes Absolute 0.70 0.20 - 1.00 K/mcL LAB HEMETOLOGY METHOD 03/25/2024 8:04 AM [facility] Eosinophils Absolute 0.11 0.00 - 0.50 K/mcL LAB HEMETOLOGY METHOD 03/25/2024 8:04 AM EST [facility] Basophils Absolute 0.06 0.00 - 0.20 K/mcL LAB HEMETOLOGY METHOD 03/25/2024 8:04 AM EST [facility] Immature Granulocytes Absolute 0.05(H) 0.00 - 0.03 K/mcL LAB HEMETOLOGY METHOD 03/25/2024 8:04 AM [facility] Blood Venous blood specimen / Unknown Venipuncture / Unknown 03/25/2024 7:55 AM EST 03/25/2024 7:55 AM EST us Guanako Gurrola MD LAB BLOOD ORDERABLES Final Resu lt [facility] [address] [place] [address], * Ethanol (03/25/2024 7:55 AM EST) Ethanol Level <3 0 - 10 mg/dL LAB CHEMISTRY METHOD 03/25/2024 8:45 AM [facility] Blood Venous blood specimen / Unknown Venipuncture / Unknown 03/25/2024 7:55 AM EST 03/25/2024 7:55 AM EST us Guanako Gurrola MD LAB BLOOD ORDERABLES Final Resu lt [facility] [address] [place] [address], [place] [phone] * (ABNORMAL) Comprehensive Metabolic Panel (CMP) (03/25/2024 7:55 AM EST) Sodium 137 133 - 145 mmol/L LAB CHEMISTRY METHOD 03/25/2024 8:29 AM [facility] Potassium 4.1 3.5 - 5.5 mmol/L LAB CHEMISTRY METHOD 03/25/2024 8:29 AM [facility] Chloride 104 96 - 110 mmol/L LAB CHEMISTRY METHOD 03/25/2024 8:29 AM [facility] CO2 25 21 - 32 mmol/L LAB CHEMISTRY METHOD 03/25/2024 8:29 AM [facility] Anion Gap 8 3 - 11 LAB CHEMISTRY METHOD 03/25/2024 8:29 AM [facility] Glucose 103(H) 70 - 100 mg/dL LAB CHEMISTRY METHOD 03/25/2024 8:29 AM [facility] BUN 11 5 - 25 mg/dL LAB CHEMISTRY METHOD 03/25/2024 8:29 AM [facility] Creatinine 0.76 0.50 - 1.10 mg/dL LAB CHEMISTRY METHOD 03/25/2024 8:29 AM [facility] eGFR 110 >=60 mL/min/1. 73m2 LAB CHEMISTRY METHOD 03/25/2024 8:29 AM [facility] Comment:Calculation based on the??Chronic Kidney Disease Epidemiology Collaboration (CKD-EPI) equation refit??without adjustment for race. BUN/Creatinine Ratio 14.5 LAB CHEMISTRY METHOD 03/25/2024 8:29 AM [facility] Calcium 9.2 8.5 - 10.5 mg/dL LAB CHEMISTRY METHOD 03/25/2024 8:29 AM [facility] AST (SGOT) 21 10 - 42 unit/L LAB CHEMISTRY METHOD 03/25/2024 8:29 AM [facility] ALT (SGPT) 57 10 - 60 unit/L LAB CHEMISTRY METHOD 03/25/2024 8:29 AM [facility] Alkaline Phosphatase 93 42 - 121 unit/L LAB CHEMISTRY METHOD 03/25/2024 8:29 AM [facility] Total Protein 7.6 6.0 - 8.0 g/dL LAB CHEMISTRY METHOD 03/25/2024 8:29 AM [facility] Albumin 3.7 3.2 - 5.0 g/dL LAB CHEMISTRY METHOD 03/25/2024 8:29 AM [facility] Total Bilirubin 0.3 0.0 - 1.4 mg/dL LAB CHEMISTRY METHOD 03/25/2024 8:29 AM [facility] Blood Venous blood specimen / Unknown Venipuncture / Unknown 03/25/2024 7:55 AM EST 03/25/2024 7:55 AM EST us Guanako Gurrola MD LAB BLOOD ORDERABLES Final Resu lt [facility] [address] [place] [address], from Last 3 Months Insurance [place] [address] Care Teams Quality Head Relationship Specialty Start Date End Date Physician, No Pcp PCP - General 03/25/24
== END 2024-06-12 15:51 | disposition home or self-care (01) ==
LOC: HO.HBS 15:05
PROVIDERS: Visit Provider Physician Assistant Surgical
DX: E66.9 Obesity, unspecified (principal); Z68.37 Body mass index [BMI] 37.0-37.9, adult; Z90.3 Acquired absence of stomach [part of]; Z98.84 Bariatric surgery status
CPT/HCPCS: 99024

== ENCOUNTER → 2024-06-12 15:04 | Outpatient (BNVA) | payer OTHER, SELFPAY | PROVIDERS: Visit Provider Physician Assistant Surgical | DX: E66.9 Obesity, unspecified (principal); Z68.37 Body mass index [BMI] 37.0-37.9, adult; Z98.84 Bariatric surgery status | CPT/HCPCS: 99212 ==

== ENCOUNTER 2024-07-02 13:04 | Outpatient (AMB) | payer OTHER, SELFPAY ==
--- NOTE | 2024-07-02 12:39 | MHC.OFFVISWM ---
VS Expanded 07/02/24 12:46 Height 5 ft Weight 192 lb BMI 37.5 Intake Visit Reasons: TV PO LSG 06/05/24 Allergies No Known Allergies Allergy (Verified 06/12/24 15:12) Medication List - Last Reconciled 07/02/24 by MAGED Patton pantoprazole 40 mg PO DAILY sucralfate 10 mL PO BID HPI Comments Details: This?is a?29?yo F who is s/p LSG 06/05/2024. Presents for 1mo post op visit. Weight at last visit on 06/12/2024 was 192 pounds with a BMI of 37.5, weight today is same.? No complaints of emesis, abdominal pain or reflux, or constipation. Had one episode of nausea yesterday after exercising. 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 Father No problems noted. Social History Household Members: Spouse Housing: House Housing Other:: 2nd floor of 2 family house Are you a primary care transport nurse to a significant other at home: No Do you presently have visiting nurse or other home services: No Alcohol intake: never Patient Tobacco Use Status: Never used Tobacco Second Hand Smoke Exposure: No Gender identity: Female Female Reproductive History Menstrual Age of Menarche: 13 Telehealth Telehealth Telehealth Platform: Telephone Location of provider rendering services: other Location of patient: address on file Patient Identification confirmed using: Name, : Yes Telehealth method: voice only Patient verbally consented to treatment: Yes Patient verbally consented to billing insurance company: Yes Patient informed of any privacy concerns related to visit: Yes Minutes spent on Phone/Video with Pt.: 15 Assessment & Plan Assessment & Plan (1) Obesity: Code(s): E66.9 - Obesity, unspecified Category: Medical (2) S/P laparoscopic sleeve gastrectomy: Code(s): Z98.84 - Bariatric surgery status Category: Medical Plan Gave pt an example meal plan with times now that she is back to work- 3-5pm, 7-9pm, 11pm-1am shake 3-6am bar Will continue current exercise regimen, try taking vitamin with protein bar to see if nausea with exercise improves. (was taking 2 hours before working out) Reviewed heavy lifting restriction until 6w postop. RTC 1mo.
[2024-07-02 12:46] VITALS: BMI 37.5
--- OUTSIDE RECORDS SUMMARY | 2024-07-02 14:16 | XMS_ITS | Clinical Summary ---
Author Organization [address] Address [address] [place] [address] Phone Care Team Providers Care Extractions Technician Name Role Phone Unavailable Primary Care Provider [...] Edward Relation to Subscriber:Self Name:Ivelisse Edward Payer ID:[id number] Group ID:Not on file Type:Not on file Address: [place] [phone] [employer]CIAL [employer]
--- OUTSIDE RECORDS SUMMARY | 2024-07-02 14:16 | XMS_ITS | Clinical Summary ---
Author Organization [facility] Address [address] [place] [address] Phone Care Team Providers Care Pressure Welder Name Role Phone Physician, No Pcp Primary Care Provider Unavaila ble Allergies No known active allergies Surgical History Surgery Date Site/Laterality Comments CHOLECYSTECTOMY 03/21/2021 PROCEDURE: [place] LAPAROSCOPY SURG CHOLECYSTECTOMY; COMMENT: Dr. Kenney Caicedo, [facility] Family History Medical History Relation [...] patient's age to complete this topic Insurance [facility] PLAN Care Teams Pressure Welder Relationship Specialty Start Date End Date Physician, No Pcp PCP - General 03/25/24
== END 2024-07-02 13:04 | disposition home or self-care (01) ==
LOC: HO.HBS 13:04
PROVIDERS: Visit Provider Physician Assistant Surgical
DX: E66.9 Obesity, unspecified (principal); Z68.37 Body mass index [BMI] 37.0-37.9, adult; Z90.3 Acquired absence of stomach [part of]; Z98.84 Bariatric surgery status
CPT/HCPCS: 99024

== ENCOUNTER 2024-08-11 09:43 | Outpatient (AMB) | payer OTHER, SELFPAY ==
--- NOTE | 2024-08-11 09:37 | MHC.OFFVISWM ---
VS Expanded 08/11/24 09:38 Height 5 ft Weight 175 lb 2 oz BMI 34.2 Intake Visit Reasons: TELEPHONE PO LSG 06/05/24 Allergies No Known Allergies Allergy (Verified 06/12/24 15:12) Medication List - Last Reconciled 08/11/24 by MAGED Patton pantoprazole 40 mg PO DAILY sucralfate 10 mL PO BID HPI Comments Details: This?is a?29?yo F who is s/p LSG 06/05/2024. Presents for 2mo post op visit. Weight at last visit on 07/02/2024 was 192 pounds with a BMI of 37.5, weight today is 175.2 pounds, representing a 17.2 pound weight loss with a BMI today of 34.2.? No complaints of nausea, emesis, abdominal pain or reflux, or constipation. Present meal plan includes: 3 protein shakes [address] Asuncion hernandez, taking MVI Exercise routine includes: treadmill workouts at increasing speed, also has a mini stepper [facility] Medical History (Updated 06/14/24 @ 00:02 by Background Talib) Hypertension GERD (gastroesophageal reflux disease) Morbid obesity Missed Obesity (BMI 35.0-39.9 without comorbidity) Surgical History (Updated 06/14/24 @ 00:02 by Background Talib) S/P laparoscopic sleeve gastrectomy Hx of cholecystectomy Family History Mother No problems noted. Father No problems noted. Social History Household Members: Spouse Housing: House Housing Other:: 2nd floor of 2 family house Are you a primary rn patient care to a significant other at home: No Do you presently have visiting nurse or other home services: No Alcohol intake: never Patient Tobacco Use Status: Never used Tobacco Second Hand Smoke Exposure: No Gender identity: Female Female Reproductive History Menstrual Age of Menarche: 13 Telehealth Telehealth Telehealth Platform: Telephone Location of provider rendering services: practice address Location of patient: address on file Patient Identification confirmed using: Name, : Yes Telehealth method: voice only Patient verbally consented to treatment: Yes Patient verbally consented to billing insurance company: Yes Patient informed of any privacy concerns related to visit: Yes Minutes spent on Phone/Video with Pt.: 14 Assessment & Plan Assessment & Plan (1) Obesity: Code(s): E66.9 - Obesity, unspecified Category: Medical (2) S/P laparoscopic sleeve gastrectomy: Code(s): Z98.84 - Bariatric surgery status Category: Surgical Plan Continue to text weekly with Dr Roland for meal plan with weight measurements. Due to complete PPI and carafate this month. RTC 2mo.
[2024-08-11 09:38] VITALS: BMI 34.2
--- OUTSIDE RECORDS SUMMARY | 2024-08-11 10:37 | XMS_ITS | Clinical Summary ---
Author Organization [address] Address [address] [place] [address] Phone Care Team Providers Care Roughener Name Role Phone Unavailable Primary Care Provider [...] Edward Relation to Subscriber:Self Name:Ivelisse Edward Payer ID:[id number] Group ID:Not on file Type:Not on file Address: [place] [phone] [employer]
== END 2024-08-11 10:03 | disposition home or self-care (01) ==
LOC: HO.HBS 09:43
PROVIDERS: Visit Provider Physician Assistant Surgical
DX: E66.9 Obesity, unspecified (principal); Z68.34 Body mass index [BMI] 34.0-34.9, adult; Z98.84 Bariatric surgery status
CPT/HCPCS: 99024

== ENCOUNTER 2024-10-15 11:35 | Outpatient (AMB) | payer OTHER, SELFPAY ==
--- NOTE | 2024-10-15 11:37 | A.OFFVIS_ITS ---
VS Expanded 10/15/24 11:44 BP 123/71 Blood Pressure Location Rt brachial Blood Pressure Position Sitting Pulse 72 Pulse Source Pulse Oximeter Temp 96.5 F L Temperature Source Temporal Artery Scan Pulse Oximetry 100 Oxygen Delivery Method Room Air Height 5 ft Weight 152 lb 3.2 oz BMI 29.7 Body Fat % 29.0 Body Fat Mass 44.0 Fat Free Mass 108.0 Visceral Fat Rating 4.0 Body Water % 51.0 Body Water Mass 77.6 Muscle Mass/Score 102.6 Basal Metabolic Rate/Score 1,485 Intake Visit Reasons: OV PO LSG 06/05/24 Allergies No Known Allergies Allergy (Verified 10/15/24 11:40) Medication List - Last Reconciled 10/15/24 by MAGED Patton [id number]-gan-[id number]-FA-vit K 45 mg iron- 800 mcg-120 mcg (Bariatric Multivitamins) caps PO HPI Comments Details: This?is a?29?yo F who is s/p LSG 06/05/2024. Weight loss of 23lb since last OV in July. No complaints of nausea, emesis, abdominal pain or reflux, or constipation. Reports hair loss Present meal plan includes: 3 protein shakes 2 bars no solid food yet hydration adequate, taking MVI Exercise routine includes: treadmill workouts at increasing speed, also has a mini stepper [facility] Medical History (Updated 10/15/24 @ 12:07 by MAGED Patton) Hypertension GERD (gastroesophageal reflux disease) Morbid obesity Missed Obesity (BMI 35.0-39.9 without comorbidity) Surgical History S/P laparoscopic sleeve gastrectomy Hx of cholecystectomy Family History Mother No problems noted. Father No problems noted. Social History Household Members: Spouse Housing: House Housing Other:: 2nd floor of 2 family house Are you a primary doggy daycare activities director to a significant other at home: No Do you presently have visiting nurse or other home services: No Alcohol intake: never Patient Tobacco Use Status: Never used Tobacco Second Hand Smoke Exposure: No Gender identity: Female Female Reproductive History Menstrual Age of Menarche: 13 Physical Exam Vital Signs: Last Vital Signs Temp 96.5 F L 10/15/24 11:44 Pulse 72 10/15/24 11:44 BP 123/71 10/15/24 11:44 Pulse Ox 100 10/15/24 11:44 Oxygen Delivery Method Room Air 10/15/24 11:44 BMI result Body Mass Index 29.7 Assessment & Plan Assessment & Plan (1) Overweight: Code(s): E66.3 - Overweight Category: Medical (2) S/P laparoscopic sleeve gastrectomy: Code(s): Z98.84 - Bariatric surgery status Category: Surgical Plan Pt to continue current meal plan. Considering asking Dr Roland to start solid food. No reflux off PPI/carafate. Will order labs to be drawn 2w prior to next OV. RTC 2mo for 6mo visit. Orders: Orders Zinc Today E66.3 - Overweight, Z98.84 - Bariatric surgery status Vitamin B12 and Folate Today E66.3 - Overweight, Z98.84 - Bariatric surgery status Complete Blood Count Auto Diff Today E66.3 - Overweight, Z98.84 - Bariatric surgery status Vitamin D 25-OH Total Today E66.3 - Overweight, Z98.84 - Bariatric surgery status Ferritin Today E66.3 - Overweight, Z98.84 - Bariatric surgery status TSH reflex Free T4 Today E66.3 - Overweight, Z98.84 - Bariatric surgery status C Reactive Protein Today E66.3 - Overweight, Z98.84 - Bariatric surgery status Vitamin B1 Today E66.3 - Overweight, Z98.84 - Bariatric surgery status Vitamin A Today E66.3 - Overweight, Z98.84 - Bariatric surgery status Comprehensive Met. Panel Today E66.3 - Overweight, Z98.84 - Bariatric surgery status Lipid Panel Today E66.3 - Overweight, Z98.84 - Bariatric surgery status IRON PROFILE Today E66.3 - Overweight, Z98.84 - Bariatric surgery status Hemoglobin A1c Today E66.3 - Overweight, Z98.84 - Bariatric surgery status Insulin Today E66.3 - Overweight, Z98.84 - Bariatric surgery status
[2024-10-15 11:44] VITALS: BP 123/71; PULSE 72; TEMP 35.8; O2SAT 100; BMI 29.7
--- OUTSIDE RECORDS SUMMARY | 2024-10-15 12:54 | XMS_ITS | Clinical Summary ---
Author Organization [facility] Address [address] [place] [address] Phone Care Team Providers Care Plexiglas Former Name Role Phone Physician, No Pcp Primary Care Provider Unavaila ble Allergies No known active allergies Surgical History Surgery Date Site/Laterality Comments CHOLECYSTECTOMY 03/21/2021 PROCEDURE: [place] LAPAROSCOPY SURG CHOLECYSTECTOMY; COMMENT: Dr. Kenney Caicedo, [facility] Family History Medical History Relation Name Comments [...] 114 03/25/2024 9:51 AM EST Temperature 37.1 C (98.7 F) 03/25/2024 9:51 AM EST Respiratory Rate 18 03/25/2024 9:51 AM EST [...] Smear 01/14/2017 Cholesterol Screening (Lipid Panel) 01/29/2022 HIV Screening 01/29/2022 Hepatitis C Screening 01/29/2022 Social Influencers of Health Screening 01/29/2022 COVID-19 Vaccine ( season) 2023 02/08/2021 Depression Screening 02/27/2024 Influenza Vaccine (#1) 2024 Hepatitis B Vaccines Completed 01/14/1997, 1996, [...] 5 Years) and At-Risk Patients (6 to 49 Years) Aged Out No longer eligible based on patient's age to complete this topic RSV Immunization Patients Under 20 months Aged Out No longer eligible based on patient's age to complete this topic Insurance [id number] [place] [address] PLAN Care Teams Plexiglas Former Relationship Specialty Start Date End Date Physician, No Pcp PCP - General 03/25/24
--- OUTSIDE RECORDS SUMMARY | 2024-10-15 12:54 | XMS_ITS | Clinical Summary ---
Author Organization [address] Address [address] [place] [address] Phone Care Team Providers Care Dough Braker Name Role Phone Unavailable Primary Care Provider [...] 89 10/21/2022 6:15 PM EDT Temperature 36.9 C (98.5 F) 10/21/2022 4:21 PM EDT Respiratory Rate 16 10/21/2022 6:15 PM EDT [...] Cervical cancer screening 01/14/2017 Covid-19 vaccine series (2023- season) 2023 Influenza vaccine 10/27/2024 RSV Immunization (1 - 1-dose 75+ series) 01/14/2071 Meningococcal Vaccine Aged Out 08/07/2008 No adia dorian eligible based on patient's age to complete this topic Pneumococcal Vaccine (2 - 49 years) Aged Out No longer eligible based on patient's age to complete this topic Insurance [employer]
--- OUTSIDE RECORDS SUMMARY | 2024-10-15 12:54 | XMS_ITS ---
[facility] Name [facility] Organization Unknown Results Test Name/Text Value Interpretation Date Range Source BKR REFLEX URINE CULTURE See Comment Normal 10/22/2022 [facility] BKR WBC/HPF INSTRUMENT 3.0 /HPF Normal 10/21/2022 0 - 5 [facility] BKR BACTERIA, UA Rare Normal 10/21/2022 - [facility] BKR URINE SQUAMOUS EPITHELIAL CELLS, UA (NUMERIC) 3.0 /HPF Normal 10/21/2022 0 - 5 [facility] Sp Gr Ur Refract.auto 1.01 Normal 10/21/2022 1.005 - 1.03 [facility] Bilirub Ur Ql Strip.auto Negative Normal 10/21/2022 - [facility] Nitrite Ur Ql Strip.auto Negative Normal 10/21/2022 - [facility] Clarity Ur Refract.auto Cloudy Abnormal 10/21/2022 - [facility] Hgb Ur Ql Strip.auto 3+ Abnormal 10/21/2022 - [facility] pH Ur Strip.auto 5.5 Normal 10/21/2022 5.5 - 7.5 [facility] Urobilinogen Ur Strip-mCnc <2.0 mg/dL Normal 10/21/2022 - [facility] Ketones Ur Strip.auto-mCnc Negative Normal 10/21/2022 - [facility] WBC # Ur Strip Negative Normal 10/21/2022 - [facility] Glucose Ur Strip.auto-mCnc Negative Normal 10/21/2022 - [facility] Color Ur Auto Yellow Normal 10/21/2022 - [facility] HCT Prot Ur Strip.auto-mCnc Trace Normal 10/21/2022 - [facility] Lactate SerPl-sCnc 2.8 mmol/L Above high normal 10/21/2022 0 .4 - 2 [facility] Chloride SerPl-sCnc 107.0 mmol/L Normal 10/21/2022 98 - 1 07 [facility] Calcium SerPl-mCnc 9.2 mg/dL Normal 10/21/2022 8.5 - 10.1 [facility] ALP SerPl-cCnc 72.0 U/L Normal 10/21/2022 45 - 117 [facility] Sodium SerPl-sCnc 140.0 mmol/L Normal 10/21/2022 136 - 14 5 [facility] ALT SerPl w/o P-5'-P-cCnc 47.0 U/L Normal 10/21/2022 13 - 56 [facility] Prot SerPl-mCnc 7.3 g/dL Normal 10/21/2022 6.4 - 8.2 [facility] Albumin SerPl BCG-mCnc 3.5 g/dL Normal 10/21/2022 3.4 - 5 [facility] AST SerPl w P-5'-P-cCnc 22.0 U/L Normal 10/21/2022 15 - 37 [facility] Globulin Plas-mCnc 3.8 g/dL Normal 10/21/2022 2.5 - 5 [facility] HCO3 SerPl-sCnc 26.0 mmol/L Normal 10/21/2022 21 - 32 [facility] eGFRcr SerPlBld CKD-EPI 2020 >60.0 mL/min/1.73m2 Normal 10/21/2022 - [facility] BUN SerPl-mCnc 10.0 mg/dL Normal 10/21/2022 7 - 18 [facility] Bilirub SerPl-mCnc 0.4 mg/dL Normal 10/21/2022 - 1 [facility] Creat SerPl-mCnc 0.95 mg/dL Normal 10/21/2022 0.55 - 1.02 [facility] Monocytes/leuk NFr Bld Auto 5.8 % Normal 10/21/2022 4 - 12 [facility] Basophils/leuk NFr Bld Auto 0.5 % Normal 10/21/2022 0 - 1.4 [facility] WBC # Bld Auto 13.9 x1000/uL Above high normal 10/21/2022 4 - 11 [facility] Imm Granulocytes/leuk NFr Bld Auto 0.6 % Normal 10/21/2022 0 - 1 [facility] Lymphocytes # Bld Auto 2.1 x 1000/uL Normal 10/21/2022 0.6 - 3.7 [facility] MCV RBC Auto 81.7 fL Normal 10/21/2022 80 - [address] RDW RBC Auto-Rto 14.6 % Normal 10/21/2022 11 - 15 [facility] Imm Granulocytes # Bld Auto 0.09 x 1000/uL Normal 10/21/2022 0 - 0.3 [facility] BKR WAM ABSOLUTE NEUTROPHIL COUNT. 10.74 x 1000/uL Above high normal 10/21/2022 2 - 7.6 [facility] Eosinophil/leuk NFr Bld Auto 0.7 % Normal 10/21/2022 0 - 5 [facility] MCH RBC Qn Auto 25.0 pg Below low normal 10/21/2022 27 - 3 3 [facility] Hgb Bld-mCnc 13.2 g/dL Normal 10/21/2022 11.7 - 15.5 [facility] Lymphocytes/leuk NFr Bld Auto 15.1 % Below low normal 10/21/2022 17 - 50 [facility] RBC # Bld Auto 5.29 M/uL Normal 10/21/2022 4 - 6 [facility] PMV Bld Auto 8.9 fL Normal 10/21/2022 8 - [address] nRBC/100 WBC Bld Auto-Rto 0.0 % Normal 10/21/2022 0 - 1 [facility] Platelet # Bld Auto 432.0 x1000/uL Above high normal 023 150 - 420 [facility] MCHC RBC Auto-mCnc 30.6 g/dL Below low normal 10/21/2022 31 - 36 [facility] Neutrophils/leuk NFr Bld Auto 77.3 % Above high normal 10/21/2022 39 - 72 [facility] Hct VFr Bld Auto 43.2 % Normal 10/21/2022 35 - 45 [facility] Eosinophil # Bld Auto 0.1 x 1000/uL Normal 10/21/2022 0 - 1 [facility] Encounters Encounter Type Encounter Reason Primary Diagnosis Location Date Emergency Syncope and collapse Syncope and collapse [facility] 10/21/2022 Care Team Organization Name Specialty Phone Email Start Date End Da te [facility] 0 10/21/2022 10/15/2023 [facility] 10/21/2022
== END 2024-10-15 12:46 | disposition home or self-care (01) ==
LOC: HO.HBS 11:36
PROVIDERS: Visit Provider Physician Assistant Surgical
DX: E66.3 Overweight (principal); Z68.29 Body mass index [BMI] 29.0-29.9, adult; Z90.3 Acquired absence of stomach [part of]; Z98.84 Bariatric surgery status
CPT/HCPCS: 99214

== ENCOUNTER → 2024-10-15 11:35 | Outpatient (BNVA) | payer OTHER, SELFPAY | PROVIDERS: Visit Provider Physician Assistant Surgical | DX: Z98.84 Bariatric surgery status (principal); E66.3 Overweight | CPT/HCPCS: 99212 ==